=== PATIENT | male | born 1950 | race Caucasian/White ===

== ENCOUNTER 2016-09-04 02:42 | Emergency (ER) | payer MEDICARE, MEDICAID ==
[~2016-09-04] VITALS: Ht 175.3 cm; Wt 105.0 kg
[~2016-09-04 02:42] MED LIST: CARB25TA PO; CHOL1TAB6 PO; DOCU1CAP39 PO; LACT12%T TOP; LUMI0.01; MELA3CAP2 PO; MELO15 PO; METO50TA11 PO; MINO10 PO; MOTR200T PO; OXYC5 PO; PENT400 PO; PRAM0.25 PO; PREG100 PO; PROC60TA PO; REST15CA PO; RIVA20 PO; SIME80CH CHEW; TERA5CAP3 PO; TIZA2TAB PO; TRIA40P IA
[2016-09-04 02:44] VITALS: BP 198/91; PULSE 56; RESP 20; TEMP 98; O2SAT 99
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
[2016-09-04] MEDS ORDERED: MIRA33504 PO (03:13)
[2016-09-04] MEDS ORDERED: OXYC-395 PO (03:13)
[2016-09-04] MEDS ORDERED: COLA100C3 PO ×2 (03:13)
[2016-09-04] MEDS ORDERED: MELA3CAP PO (03:13)
[2016-09-04] MEDS ORDERED: METO50TA11 PO (03:13)
[2016-09-04] MEDS ORDERED: TERA5CAP3 PO (03:13)
[2016-09-04] MEDS ORDERED: POTA10TA8 PO (03:13)
[2016-09-04] MEDS ORDERED: PRAM0.25 PO (03:13)
[2016-09-04] MEDS ORDERED: MYLASUS2 PO (03:13)
[2016-09-04] MEDS ORDERED: NITR1SUB2 SL (03:13)
[2016-09-04] MEDS ORDERED: IBUP-232 PO (03:13)
[2016-09-04] MEDS ORDERED: SIME80CH CHEW (03:13)
[2016-09-04] MEDS ORDERED: REST30CA PO (03:13)
[2016-09-04] MEDS ORDERED: COMB0.2S EACH EYE (03:13)
[2016-09-04] MEDS ORDERED: AMMO12LO TOPICAL (03:13)
[2016-09-04] MEDS ORDERED: LATA0.002 EACH EYE (03:13)
[2016-09-04] MEDS ORDERED: MINO10TA PO (03:13)
[2016-09-04] MEDS ORDERED: VITA100018 PO (03:13)
[2016-09-04] MEDS ORDERED: PENT400T PO (03:13)
[2016-09-04] MEDS ORDERED: TYLE325T PO (03:13)
[2016-09-04] MEDS ORDERED: METO5TAB3 PO (03:13)
[2016-09-04] MEDS ORDERED: LYRI100C PO (03:13)
[2016-09-04] MEDS ORDERED: XARE20TA PO (03:13)
[2016-09-04] MEDS ORDERED: SYSTSOL9 EACH EYE (03:13)
[2016-09-04] MEDS ORDERED: ALDA50TA2 PO (03:13)
[2016-09-04] MEDS ORDERED: FURO40TA PO (03:13)
[2016-09-04] MEDS ORDERED: TIZA2CAP3 PO (03:13)
--- NOTE | 2016-09-04 03:41 | RADRPT ---
EXAM DATE/TIME: 09/04/2016 03:15 [facility] COMPARISON: No previous studies available for comparison. INDICATIONS : Trauma; fall. Laceration over left eyebrow. RADIATION DOSE: 56.35 CTDIvol (mGy) MEDICAL HISTORY : Deep venous thrombosis. Hypertension. PE SURGICAL HISTORY : Inguinal hernia repair. ENCOUNTER: Initial ACUITY: 1 day PAIN SCALE: 4/10 LOCATION: cranial TECHNIQUE: Multiple contiguous axial images were obtained of the head. Using automated exposure control and adj ustment of the mA and/or kV according to patient size, radiation dose was kept as low as reasonably a chievable to obtain optimal diagnostic quality images. FINDINGS: CEREBRUM: The ventricles are normal for age. No evidence of midline shift, mass lesion, hemorrhage or acute in farction. No extra-axial fluid collections are seen. POSTERIOR FOSSA: The cerebellum and brainstem are intact. The 4th ventricle is midline. The cerebellopontine angle i s unremarkable. EXTRACRANIAL: The visualized portion of the orbits is intact. Soft tissue swelling at the left orbital region SKULL: The calvaria is intact. No evidence of skull fracture. CONCLUSION: Minimal soft tissue swelling otherwise unremarkable head CT without contrast Issa Fierro MD on September 04, 2016 at 3:39 Board Certified Radiologist. This report was verified electronically.
[2016-09-04 06:57] VITALS: BP 169/72; PULSE 54; RESP 18; O2SAT 96
== END 2016-09-04 07:00 | disposition home or self-care (01) ==
LOC: NEPC 02:42
DX: S00.03XA Contusion of scalp, initial encounter (principal); W01.0XXA Fall on same level from slipping, tripping and stumbling without subsequent striking against object, initial encounter; Y93.G3 Activity, cooking and baking; Y92.000 Kitchen of unspecified non-institutional (private) residence as the place of occurrence of the external cause; I10 Essential (primary) hypertension
CPT/HCPCS: 70450

== ENCOUNTER 2017-02-26 10:17 | Inpatient (IN) | payer MEDICARE, MEDICAID ==
[2017-02-26] VITALS (7 sets, daily range): BP systolic 156–205; BP diastolic 73–98; PULSE 74–90; RESP 15–20; TEMP 97.9–98.6; O2SAT 96–99
[~2017-02-26] VITALS: Ht 175.3 cm; Wt 89.1 kg
[~2017-02-26 10:17] MED LIST changes: +ALDA50TA2 PO; +AMMO12LO TOPICAL; -CARB25TA PO; -CHOL1TAB6 PO; +COLA100C3 PO; +COMB0.2S EACH EYE; -DOCU1CAP39 PO; +FURO40TA PO; +IBUP-232 PO; -LACT12%T TOP; +LATA0.002 EACH EYE; -LUMI0.01; +LYRI100C PO; +MELA3CAP PO; -MELA3CAP2 PO; -MELO15 PO; +METO5TAB3 PO; -MINO10 PO; +MINO10TA PO; +MIRA33504 PO; -MOTR200T PO; +MYLASUS2 PO; +NITR1SUB2 SL; +OXYC-395 PO; -OXYC5 PO; -PENT400 PO; +PENT400T PO; +POTA10TA8 PO; -PREG100 PO; -PROC60TA PO; -REST15CA PO; +REST30CA PO; -RIVA20 PO; +SYSTSOL9 EACH EYE; +TIZA2CAP3 PO; -TIZA2TAB PO; +TYLE325T PO; +VITA100018 PO; +XARE20TA PO
[2017-02-26] MEDS: SODIUM CHLOR 0.9% 1000 ML INJ 1,000 ML IV SCH ×3 (12:30→20:34)
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
[2017-02-26] MEDS ORDERED: SINE25TA PO (13:13)
--- NOTE | 2017-02-26 13:21 | RADRPT ---
EXAM DATE/TIME: 02/26/2017 12:51 [facility] COMPARISON: No previous studies available for comparison. INDICATIONS : Confusion, slurred speech MEDICAL HISTORY : None. SURGICAL HISTORY : None. ENCOUNTER: Initial ACUITY: 1 day PAIN SCORE: 0/10 LOCATION: Bilateral chest FINDINGS: A single view of the chest demonstrates the lungs to be symmetrically aerated without evidence of mas s, infiltrate or effusion. The cardiomediastinal contours are unremarkable. Osseous structures are intact. CONCLUSION: No acute disease. Ranjit Valero MD FACR on February 26, 2017 at 13:20 Board Certified Radiologist. This report was verified electronically.
[2017-02-26 13:36] LABS: BLOOD, URINE NEG (NEG); GLUCOSE,URINE NEG (NEG); HYALINE CAST, URINE 1 /lpf (RARE); KETONE, URINE NEG (NEG); NITRITE,URINE NEG (NEG); URINE COLOR COLORLESS (YELLW/STRAW)
[2017-02-26 13:37] LABS: COMMENT (UR) CULT NOT INDICATED; CULTURE IF INDICATED CULT NOT INDICATED
[2017-02-26 13:54] LABS: APTT (PATIENT) 27.9 SEC (24.3-30.1); INTERNATIONAL NORMALIZED RATIO 1.1 RATIO
[2017-02-26 13:58] LABS: AUTOMATED NEUTROPHIL # 6.8 TH/MM3 (1.8-7.7); BASOPHIL % 0.3 % (0.0-2.0); EOSINOPHIL # 0.1 TH/MM3 (0-0.4); HEMATOCRIT 38.6 % (39.0-51.0); HEMO FLAGS DIFF FINAL; LYMPH % 12.5 % (9.0-44.0); LYMPHOCYTE # 1.1 TH/MM3 (1.0-4.8); MEAN CELL VOLUME 90.7 FL (80.0-100.0); MEAN CORPUSCULAR HEMOGLOBIN 30.5 PG (27.0-34.0); MEAN CORPUSCULAR HGB CONC 33.7 % (32.0-36.0); MONO % 7.8 % (0.0-8.0); NEUT % 78.4 % (16.0-70.0); PLATELET COUNT 235 TH/MM3 (150-450); RED BLOOD COUNT 4.26 MIL/MM3 (4.50-5.90); RED CELL DISTRIBUTION WIDTH 12.9 % (11.6-17.2); WHITE BLOOD COUNT 8.7 TH/MM3 (4.0-11.0)
--- NOTE | 2017-02-26 13:59 | RADRPT ---
EXAM DATE/TIME: 02/26/2017 13:26 [facility] COMPARISON: CT BRAIN W/O CONTRAST, September 04, 2016, 3:15. INDICATIONS : General weakness RADIATION DOSE: 56.40 CTDIvol (mGy) MEDICAL HISTORY : Cardiovascular disease. Hypertension. SURGICAL HISTORY : None. ENCOUNTER: Initial ACUITY: 1 day PAIN SCALE: 0/10 LOCATION: cranial TECHNIQUE: Multiple contiguous axial images were obtained of the head. Using automated exposure control and adj ustment of the mA and/or kV according to patient size, radiation dose was kept as low as reasonably a chievable to obtain optimal diagnostic quality images. DICOM format image data is available electro nically for review and comparison. FINDINGS: CEREBRUM: Mild diffuse cerebral atrophy. The ventricles are normal for age. No evidence of midline shift, mass lesion, hemorrhage or acute infarction. No extra-axial fluid collections are seen. POSTERIOR FOSSA: The cerebellum and brainstem are intact. The 4th ventricle is midline. The cerebellopontine angle i s unremarkable. EXTRACRANIAL: The visualized portion of the orbits is intact. SKULL: The calvaria is intact. No evidence of skull fracture. CONCLUSION: 1. No acute intracranial abnormality. Ayush Zamora MD on February 26, 2017 at 13:55 Board Certified Radiologist. This report was verified electronically.
[2017-02-26 14:00] LABS: ALT (GPT) 12 U/L (12-78); ANION GAP 7 MEQ/L (5-15); AST (GOT) 19 U/L (15-37); BICARBONATE 29.5 MEQ/L (21.0-32.0); BLOOD UREA NITROGEN 18 MG/DL (7-18); CHLORIDE 108 MEQ/L (98-107); GLOMERULAR FILTRATION RATE 62 ML/MIN (>89); SODIUM (NA) 144 MEQ/L (136-145)
[2017-02-26 14:09] LABS: ALKALINE PHOSPHATASE 64 U/L (45-117); TOTAL BILIRUBIN ADULT 0.8 MG/DL (0.2-1.0)
[2017-02-26] MEDS ORDERED: MORPHINE SULFATE 2 MG/ML INJ IV PUSH ONE (14:15)
[2017-02-26] MEDS ORDERED: ONDANSETRON HCL 4 MG/2 ML VIAL IV PUSH ONE (14:15)
[2017-02-26] MEDS ORDERED: SODIUM CHLORIDE 0.9% FLUSH 10 ML FLUSH IV FLUSH PRN (14:45)
--- NOTE | 2017-02-26 14:54 | HHI.HP ---
[facility] Service Family Medicine Primary Care Physician Juan Antonio Kenney MD Admission Diagnosis acute CVA Diagnoses: International Travel<30 Days: No Contact w/Intl Traveler<30days: No Known Affected Area: No History of Present Illness 66 year old male with a past history of Parkinsons, HTN, PE, CHF who presented to the ED due to right sided weakness. He states he woke up at 4:00 AM this morning and realized he had difficulty moving his right arm and leg. Reports he alerted the staff at his longterm, who advised him to go back to bed. He woke up again at 8:00 AM, and noted a significant headache that felt like a "spike in my head" which lasted for 20 seconds. He has not experienced any headaches since then. He called and spoke with his doctor who stated he believed that the patient had slurred speech at the time and advised to go to the hospital. He believes he may have some blurred vision since this morning. Reports some nausea, no vomiting, fever, chills. Minor neck stiffness. He states he continued have persistent right arm and right leg weakness, similar to an episode he had 3 or 4 years ago which is the reason he is currently in a longterm. He does not believe that was a stroke at the time. States he has good sensation in both arms and legs. He states that at baseline he is typically ambulatory, works out at the gym often. Denies chest pain, shortness of breath, abdominal pain. Notes some pain in his back she states is similar to that time he had a pulmonary embolism years ago. Does not currently compare of calf pain, states he has been ambulatory recently, denies hemoptysis, no recent known malignancy. Review of Systems Constitutional: DENIES: Fatigue, Fever, Chills, Dizziness Endocrine: DENIES: Polydipsia, Polyuria Eyes: COMPLAINS OF: Blurred vision, DENIES: Diplopia, Eye inflammation, Eye pain, Vision loss, Photosensitivity, Double Vision Ears, nose, mouth, throat: COMPLAINS OF: Tinnitus, DENIES: Hearing loss, Vertigo, Throat pain, Ear Pain, Running Nose, Epistaxis, Sinus Pain Respiratory: DENIES: Apneas, Cough, Wheezing, Hemoptysis, Sputum production, Shortness of breath Cardiovascular: DENIES: Chest pain, Palpitations, Syncope, Lower Extremity Edema, Orthopnea Gastrointestinal: COMPLAINS OF: Nausea, DENIES: Abdominal pain, Black stools, Bloody stools, Constipation, Diarrhea, Vomiting, Difficulty Swallowing Genitourinary: COMPLAINS OF: Nocturia, DENIES: Urgency, Hematuria, Dysuria Musculoskeletal: COMPLAINS OF: Back pain, Neck pain, DENIES: Joint pain, Muscle aches, Stiffness, Joint Swelling Integumentary: DENIES: Abnormal pigmentation, Pruritus Hematologic/lymphatic: DENIES: Bruising, Lymphadenopathy Immunologic/allergic: DENIES: Eczema, Urticaria Neurologic: COMPLAINS OF: Abnormal gait, Headache (once at 8AM), Localized weakness, Speech Problems, Tremor (Baseline), Poor Balance, DENIES: Paresthesias , Seizures Psychiatric: COMPLAINS OF: Confusion (Needs to think for a couple seconds before he speaks), DENIES: Anxiety, Mood changes, Depression, Hallucinations Past Family Social History Past Medical History Parkinsons Chronic back pain HTN PE CHF Past Surgical History B/L inguinal hernia repair Shoulder replacement Right side Laceration repair right hand Allergies: Coded Allergies: gabapentin (Unverified Allergy, Severe, TACHYCARDIA, 01/02/17) Family History Father passed at 42 from stroke Mother: angina, HTN, passed at 83 Brother: unknown health status 4 Children: no health issues Social History Etoh: on occasion Tobacco: pat history of 3-4 years of smoking 3 cigarrettes to 3 packs day Drugs: smoked marijuana, speed once in the past, acid a few times, None now Live in a longterm, [facility]. Physical Exam Vital Signs Vital Signs Date Time Temp Pulse Resp B/P (MAP) Pulse Ox O2 Delivery O2 Flow Rate FiO2 02/26/17 13:13 78 18 165/73 (103) 98 Room Air 02/26/17 13:04 74 18 189/88 (121) 98 Room Air 02/26/17 13:04 77 18 99 Room Air 02/26/17 13:03 18 98 Room Air 02/26/17 13:03 99 Room Air 02/26/17 12:21 97.9 90 15 156/85 (108) 99 Room Air Physical Exam GENERAL: This is a well-nourished, well-developed patient, in no apparent distress. SKIN: No rashes, ecchymoses or lesions. Cool and dry. HEAD: Atraumatic. Normocephalic. No temporal or scalp tenderness. EYES: Pupils equal round and reactive. Extraocular motions intact. No scleral icterus. No injection or drainage. Visual [place] intact. ENT: Nose without bleeding, purulent drainage or septal hematoma. Throat without erythema, tonsillar hypertrophy or exudate. Uvula midline. Airway patent. NECK: Trachea midline. No JVD or lymphadenopathy. Supple, nontender, no meningeal signs. Full range of motion. CARDIOVASCULAR: Regular rate and rhythm without murmurs, gallops, or rubs. RESPIRATORY: Clear to auscultation. Breath sounds equal bilaterally. No wheezes , rales, or rhonchi. GASTROINTESTINAL: Abdomen soft, non-tender, nondistended. No hepato-splenomegaly , or palpable masses. No guarding. MUSCULOSKELETAL: Extremities without clubbing, cyanosis, or edema. No joint tenderness, effusion, or edema noted. No calf tenderness. Negative Kernig, Brudzinski sign. NEUROLOGICAL: Awake and alert. Cranial nerves II through XII intact. Motor and sensory grossly within normal limits bilaterally in arms and legs. Five out of 5 muscle strength on left side, 4/5 in right arm and leg. Normal speech (self reported slurred). Laboratory Laboratory Tests Test 02/26/17 12:52 White Blood Count 8.7 Red Blood Count 4.26 Hemoglobin 13.0 Hematocrit 38.6 Mean Corpuscular Volume 90.7 Mean Corpuscular Hemoglobin 30.5 Mean Corpuscular Hemoglobin Concent 33.7 Red Cell Distribution Width 12.9 Platelet Count 235 Mean Platelet Volume 8.4 Neutrophils (%) (Auto) 78.4 Lymphocytes (%) (Auto) 12.5 Monocytes (%) (Auto) 7.8 Eosinophils (%) (Auto) 1.0 Basophils (%) (Auto) 0.3 Neutrophils # (Auto) 6.8 Lymphocytes # (Auto) 1.1 Monocytes # (Auto) 0.7 Eosinophils # (Auto) 0.1 Basophils # (Auto) 0.0 CBC Comment DIFF FINAL Differential Comment Prothrombin Time 12.0 Prothromb Time International Ratio 1.1 Activated Partial Thromboplast Time 27.9 Urine Color COLORLESS Urine Turbidity CLEAR Urine pH 7.0 Urine Specific Declo 1.008 Urine Protein NEG Urine Glucose (UA) NEG Urine Ketones NEG Urine Occult Blood NEG Urine Nitrite NEG Urine Bilirubin NEG Urine Urobilinogen LESS THAN 2.0 Urine Leukocyte Esterase NEG Urine Hyaline Casts 1 Microscopic Urinalysis Comment CULT NOT INDICATED Blood Urea Nitrogen 18 Creatinine 1.18 Random Glucose 92 Total Protein 7.0 Albumin 3.7 Calcium Level 9.0 Alkaline Phosphatase 64 Aspartate Amino Transf (AST/SGOT) 19 Alanine Aminotransferase (ALT/SGPT) 12 Total Bilirubin 0.8 Sodium Level 144 Potassium Level 4.0 Chloride Level 108 Carbon Dioxide Level 29.5 Anion Gap 7 Estimat Glomerular Filtration Rate 62 B-Type Natriuretic Peptide 109 Thyroid Stimulating Hormone 3rd Gen 0.522 Result Diagram: 02/26/17 1252 02/26/17 1252 Imaging Last 48 hours Impressions Neck Magnetic Resonance Angiography 02/26/171409 Signed Impressions: Service Date/Time: Sunday, February 26, 2017 16:02 - CONCLUSION: 1. Unremarkable carotid MRA examination. No significant flow-limiting stenosis. Ayush Zamora MD Head Magnetic Resonance Angiography 02/26/171409 Signed Impressions: Service Date/Time: Sunday, February 26, 2017 16:02 - CONCLUSION: 1. Unremarkable MRA examination of the brain. Specifically, no evidence for large vessel occlusion or significant intracranial stenosis. Ayush Zamora MD Brain MRI [id number]/[id number] Signed Impressions: Service Date/Time: Sunday, February 26, 2017 16:02 - CONCLUSION: 1. Unremarkable MRI examination the brain. Specifically, no evidence of acute ischemia. Ayush Zamora MD Head CT [id number]/26/[id number] Signed Impressions: Service Date/Time: Sunday, February 26, 2017 13:26 - CONCLUSION: 1. No acute intracranial abnormality. Ayush Zamora MD Chest X-Ray 02/26/171221 Signed Impressions: Service Date/Time: Sunday, February 26, 2017 12:51 - CONCLUSION: No acute disease. Ranjit Valero MD FACR Caprini VTE Risk Assessment Caprini VTE Risk Assessment: Mod/High Risk (score >= 2) Caprini Risk Assessment Model Point Value = 1 Point Value = 2 Point Value = 3 Point Value = 5 Age 41-60 Minor surgery BMI > 25 kg/m2 Swollen legs Varicose veins or History of unexplained or recurrent spontaneous Oral contraceptives or hormone replacement Sepsis (< 1 month) Serious lung disease, including pneumonia (< 1 month) Abnormal pulmonary function Acute myocardial infarction Congestive heart failure (< 1 month) History of inflammatory bowel disease Medical patient at bed rest Age 61-74 Arthroscopic surgery Major open surgery (> 45 min) Laparoscopic surgery (> 45 min) Malignancy Confined to bed (> 72 hours) Immobilizing plaster cast Central venous access Age >= 75 History of VTE Family history of VTE Factor V Leiden Prothrombin [id number] Lupus anticoagulant Anticardiolipin antibodies Elevated serum homocysteine Heparin-induced thrombocytopenia Other congenital or acquired thrombophilia Stroke (< 1 month) Elective arthroplasty Hip, pelvis, or leg fracture Acute spinal cord injury (< 1 month) Prophylaxis Regimen Total Risk Factor Score Risk Level Prophylaxis Regimen 0-1 Low Early ambulation 2 Moderate Order ONE of the following: *Sequential Compression Device (SCD) *Heparin 5000 units SQ BID 3-4 Higher Order ONE of the following medications: *Heparin 5000 units SQ TID *Enoxaparin/Lovenox 40 mg SQ daily (WT < 150 kg, CrCl > 30 mL/min) *Enoxaparin/Lovenox 30 mg SQ daily (WT < 150 kg, CrCl > 10-29 mL/min) *Enoxaparin/Lovenox 30 mg SQ BID (WT < 150 kg, CrCl > 30 mL/min) AND/OR *Sequential Compression Device (SCD) 5 or more Highest Order ONE of the following medications: *Heparin 5000 units SQ TID (Preferred with Epidurals) *Enoxaparin/Lovenox 40 mg SQ daily (WT < 150 kg, CrCl > 30 mL/min) *Enoxaparin/Lovenox 30 mg SQ daily (WT < 150 kg, CrCl > 10-29 mL/min) *Enoxaparin/Lovenox 30 mg SQ BID (WT < 150 kg, CrCl > 30 mL/min) AND *Sequential Compression Device (SCD) Assessment and Plan Assessment and Plan 66 year old male with a past history of Parkinsons, HTN, PE, CHF who presented to the ED due to right sided weakness. Currently demonstrating right-sided hemiplegia. Past history of right-sided hemiplegia, reported to have had an episode similar to this a few years ago. Also complains of a back pain which is "similar to when I had a PE." Wells criteria for 4.5. Perc score 2. Problem List: (1) Hemiplegia ICD Codes: G81.90 - Hemiplegia, unspecified affecting unspecified side Plan: Patient presented with right-sided cassi-plegia. No other focal neurological deficits noted. CT head without acute process, head MRA unremarkable, brain MRI unremarkable, neck MRA unremarkable. * Neuro checks every 4 * Head of bed flat * Nothing by mouth until swallow study * Follow-up neurology recognitions * Telemetry * ACS rule out * Follow up troponins * Follow-up echo (2) Back pain ICD Codes: M54.9 - Dorsalgia, unspecified Plan: Patient complains of back pain which he reports is similar to when he had a pulmonary embolism past. Well's score 4.5, Perc score 2 * Currently on Xarelto * No signs or symptoms of DVT at this time * Follow up pulmonary CT angiogram (3) Hypertension ICD Codes: I10 - Hypertension Status: Acute Plan: Chronic hypertension. * Home medications held for now to allow for permissive hypertension (4) Parkinson disease ICD Codes: G20 - Parkinson's disease Plan: History of Parkinson's * Continue carbidopa levodopa 25/100 mg every 8 hours- home medication (5) FEN Plan: Fluids * Maintenance fluids at 140 mL per hour Electrolytes * Monitor and correct as needed Nutrition * Nothing by mouth, require swallow study Prophylaxis * Currently on Xarelto, SCDs * Zofran as needed Physician Certification 2 Midnight Certification Type: Admission for Inpatient Services Order for Inpatient Services The services are ordered in accordance with Medicare regulations or non- Medicare payer requirements, as applicable. In the case of services not specified as inpatient-only, they are appropriately provided as inpatient services in accordance with the 2-midnight benchmark. Estimated LOS (days): 2 2 days is the estimated time the patient will need to remain in the hospital, assuming treatment plan goals are met and no additional complications. Post-Hospital Plan: Not yet determined Austen Wilson MD R1 Feb 26, 2017 14:54
[2017-02-26] MEDS ORDERED: ACETAMINOPHEN 325 MG TAB PO PRN ×2 (15:45)
[2017-02-26] MEDS ORDERED: ENALAPRILAT 1.25 MG/ML VIAL IV PUSH PRN (15:45)
[2017-02-26] MEDS ORDERED: LACTULOSE SYRUP 20 GM/30 ML CUP PO PRN (15:45)
[2017-02-26] MEDS ORDERED: SENNOSIDES 8.6 MG TAB PO PRN (15:45)
[2017-02-26] MEDS ORDERED: ONDANSETRON HCL 4 MG/2 ML VIAL IVP PRN (15:45)
[2017-02-26] MEDS ORDERED: MAGNESIUM HYDROXIDE SUSP 30 ML CUP PO PRN (15:45)
[2017-02-26] MEDS ORDERED: BISACODYL 10 MG SUPP RECTAL PRN (15:45)
[2017-02-26] MEDS ORDERED: MORPHINE SULFATE 4 MG/ML INJ IV PUSH PRN (15:45)
--- NOTE | 2017-02-26 15:59 | EKG ---
Date Performed: 02/26/2017 Time Performed: 12:42:40 PTAGE: 66 years EKG: Sinus rhythm WITH FREQUENT VENTRICULAR PREMATURE COMPLEXES POSSIBLE LEFT ATRIAL ENLARGEMENT LEFT ANTERIOR FASCICU LAR BLOCK Compared to prior tracing no significant change ABNORMAL ECG PREVIOUS TRACING : 10/26/2015 11.06 DOCTOR: Juan Antonio Rose Interpretating Date/Time 02/26/2017 15:57:59
[2017-02-26] MEDS ORDERED: SODIUM CHLOR 0.9% 1000 ML INJ 1,000 ML IV SCH (16:00)
--- NOTE | 2017-02-26 16:43 | RADRPT ---
EXAM DATE/TIME: 02/26/2017 16:02 [facility] COMPARISON: MRI BRAIN W/O CONTRAST, February 26, 2017, 16:02. INDICATIONS : CVA. MEDICAL HISTORY : Hypertension. Arthritis. DDD. Glaucoma. SURGICAL HISTORY : Inguinal hernia repair. Cataracts. Right shoulder. ENCOUNTER: Subsequent ACUITY: 1 day PAIN SCORE: 3/10 LOCATION: cranial Please note a normal MRA of the brain does not entirely exclude the possibility of a small aneurysm, nor the possibility of distal intracranial vessel disease. TECHNIQUE: 3D time of flight MRA was performed. Source images, multiplanar STS MIP, and 3D volume MIP reconstru ctions were reviewed. FINDINGS: Anterior circulation: Distal intracranial internal carotid arteries are patent with flow extending to the middle and anteri or cerebral arteries. There is no evidence for aneurysm, vessel truncation or stenosis, and no eviden ce for vascular malformation. Posterior circulation: Symmetric distal vertebral arteries with flow extending to basilar artery. There is no evidence for aneurysm, vessel truncation or stenosis, and no evidence for vascular malformation. CONCLUSION: 1. Unremarkable MRA examination of the brain. Specifically, no evidence for large vessel occlusion or significant intracranial stenosis. Ayush Zamora MD on February 26, 2017 at 16:39 Board Certified Radiologist. This report was verified electronically.
--- NOTE | 2017-02-26 16:46 | RADRPT ---
EXAM DATE/TIME: 02/26/2017 16:02 [facility] COMPARISON: No previous studies available for comparison. INDICATIONS : CVA. MEDICAL HISTORY : Hypertension. Arthritis. Right shoulder. DDD. SURGICAL HISTORY : Inguinal hernia repair. DDD. Glaucoma. ENCOUNTER: Subsequent ACUITY: 1 day PAIN SCORE: 3/10 LOCATION: cranial TECHNIQUE: Multiplanar, multisequence MRI of the brain was performed without contrast. FINDINGS: CEREBRUM: The ventricles are normal for age. No evidence of midline shift, mass lesion, hemorrhage or acute in farction. No extraaxial fluid collections are seen. The pituitary gland and suprasellar cistern are normal in configuration. WHITE MATTER: No significant signal abnormalities are seen in the white matter. POSTERIOR FOSSA: The cerebellum and brainstem are intact. The 4th ventricle is midline. The cerebellopontine angle is unremarkable. The cerebellar tonsils are normal in position. DIFFUSION IMAGING: No focal areas of restricted diffusion are seen. No evidence of acute infarction. EXTRACRANIAL: The visualized portions of the orbits and paranasal sinuses are unremarkable. CONCLUSION: 1. Unremarkable MRI examination the brain. Specifically, no evidence of acute ischemia. Aysuh Zamora MD on February 26, 2017 at 16:44 Board Certified Radiologist. This report was verified electronically.
[2017-02-26] MEDS ORDERED: GADODIAMIDE PF 287 MG/ML 20 ML VIAL (for RAD MRI) IV PUSH ONE (17:04)
--- NOTE | 2017-02-26 17:23 | RADRPT ---
EXAM DATE/TIME: 02/26/2017 16:02 [facility] COMPARISON: No previous studies available for comparison. INDICATIONS : Stroke. CONTRAST: 20 cc Omniscan (gadodiamide) IV MEDICAL HISTORY : Hypertension. Arthritis. DDD. Glaucoma. SURGICAL HISTORY : Inguinal hernia repair. Cataracts. Right shoulder. ENCOUNTER: Subsequent ACUITY: 1 day PAIN SCORE: 3/10 LOCATION: cranial Percent stenosis is calculated using the diameter of the stenotic region over the diameter of the nor mal distal internal carotid artery. TECHNIQUE: Bolus infused MRA of the extracranial circulation was performed using a neurovascular coil. Post pro cessing was performed including rotating subvolume maximum intensity projections of each carotid tru ry, rotating full volume maximum intensity projections of both carotid arteries, sagittal and coronal sliding thin slab reformations of each carotid artery, and left oblique sliding thin slab reformatio n through the aortic arch to include the origin of the arch branch vessels. FINDINGS: AORTIC ARCH: There is a three vessel origin of the great vessels from the aorta. No evidence of ostial narrowing. RIGHT CAROTID: The common carotid artery is intact. The carotid bulb has a normal configuration without ulceration or narrowing. The internal carotid artery lumen is smooth without stenosis. The external carotid ar aram is intact. LEFT CAROTID: The common carotid artery is intact. The carotid bulb has a normal configuration without ulceration or narrowing. The internal carotid artery lumen is smooth without stenosis. The external carotid ar aram is intact. VERTEBRALS: The vertebral arteries have a symmetric diameter. No stenotic lesions are seen. CONCLUSION: 1. Unremarkable carotid MRA examination. No significant flow-limiting stenosis. Ayush Zamora MD on February 26, 2017 at 17:19 Board Certified Radiologist. This report was verified electronically.
[2017-02-26] MEDS: ACETAMINOPHEN/HYDROcodone 325 MG/10 MG TAB PO PRN ×2 (18:33→22:49)
[2017-02-26] MEDS: PRAMIPEXOLE DIHYDROCHLORIDE 0.25 MG TAB PO SCH (18:33)
[2017-02-26] MEDS ORDERED: GLUCAGON 1 MG/ML VIAL OTHER PRN (19:00)
[2017-02-26] MEDS ORDERED: SODIUM CHLORIDE 0.9% FLUSH 5 ML FLUSH IV FLUSH PRN (19:00)
[2017-02-26] MEDS ORDERED: DEXTROSE 50% IN WATER 50 ML VIAL(D50) IV PUSH PRN (19:00)
--- NOTE | 2017-02-26 19:23 | RADRPT ---
EXAM DATE/TIME: 02/26/2017 18:48 [facility] COMPARISON: US CAROTID ARTERIES, December 07, 2010, 8:49. INDICATIONS : Cerebrovascular accident. MEDICAL HISTORY : Parkinson's. Congestive heart failure. Hypertension. Tinnitus. Neck pain. Head trauma. Dizziness. Hea dache. Numbness. Pleural effusion. Chest pain. Gastroesophageal reflux disease. Nocturia. Arthritis. SURGICAL HISTORY : Cataract extraction. Teeth extractions. Inguinal hernia repair. Right shoulder replacement. ENCOUNTER: Initial ACUITY: 1 day PAIN SCORE: 0/10 LOCATION: Bilateral neck PEAK SYSTOLIC VELOCITIES (cm/sec): ICA/CCA RATIO: Right: 1.0 Left: 0.8 ICA: Right: 94 Left: 94 CCA: Right: 92 Left: 116 ECA: Right: 100 Left: 91 VERTEBRAL: Right: 51 antegrade Left: 49 antegrade Elevated flow velocities and ICA/CCA ratios have been found to correlate with increased degrees of vessel stenosis, calculated as percentage of diameter relative to a normal segment of distal ICA/CCA FINDINGS: Ultrasound of the carotid arteries was performed bilaterally using real-time Doppler and color Dopple r imaging. Examination of the right carotid artery demonstrates mild fibrous plaque within the bifurcation. No w aveform abnormalities are identified and no spectral broadening is seen. Examination of the left casillas tid artery demonstrates mild fibrous plaque within the bulb. No waveform abnormalities are identified and no spectral broadening is seen. There is antegrade flow in both vertebral arteries. CONCLUSION: No evidence of hemodynamically significant lesion. Juan Antonio Watson MD on February 26, 2017 at 19:21 Board Certified Radiologist. This report was verified electronically.
[2017-02-26] MEDS ORDERED: IOHEXOL 350 MG/ML 10 ML VIAL (for RAD DIAG) IVCONTRAST ONE (20:07)
--- NOTE | 2017-02-26 20:24 | RADRPT ---
EXAM DATE/TIME: 02/26/2017 19:45 [facility] COMPARISON: CT PULMONARY ANGIOGRAM, April 22, 2013, 9:38. INDICATIONS : Generalize weakness,episode of chest tightness IV CONTRAST: 74 cc Omnipaque 350 (iohexol) IV RADIATION DOSE: 23.36 CTDIvol (mGy) MEDICAL HISTORY : Cardiovascular disease. Hypertension. SURGICAL HISTORY : None. ENCOUNTER: Initial ACUITY: 1 day PAIN SCALE: 0/10 LOCATION: chest TECHNIQUE: Volumetric scanning of the chest was performed using a pulmonary embolism protocol MIP images were re constructed. Using automated exposure control and adjustment of the mA and/or kV according to patien t size, radiation dose was kept as low as reasonably achievable to obtain optimal diagnostic quality images. DICOM format image data is available electronically for review and comparison. Follow-up recommendations for detected pulmonary nodules are based at a minimum on nodule size and pa tient risk factors according to Fleischner Society Guidelines. FINDINGS: Examination of the pulmonary vasculature demonstrates good filling of the main, lobar and segmental b ranches. There are no filling defects to suggest pulmonary embolism. Multiplanar reconstructions are also unremarkable. There is subsegmental atelectasis in the both bases. There is a 19 x 15 mm nodule in the right lower lobe. Malignancy is not excluded. PET/CT scan is recommended to further evaluatio n if clinically indicated. Examination of the mediastinum demonstrates no abnormally enlarged lymph nodes by CT criteria. No axi llary or hilar abnormalities are identified. Coronary artery calcifications are present. The visualiz ed upper abdomen demonstrates no abnormality. CONCLUSION: 1. No evidence of pulmonary embolism. 2. 19 mm right lower lobe nodule. Malignancy is not excluded. PET/CT scan is recommended to further e valuation if clinically indicated. Juan Antonio Watson MD on February 26, 2017 at 20:07 Board Certified Radiologist. This report was verified electronically.
[2017-02-26] MEDS: DOCUSATE SODIUM 50 MG/SENNA 8.6 MG TAB PO SCH (20:33)
[2017-02-26] MEDS: SODIUM CHLORIDE 0.9% FLUSH 5 ML FLUSH IV FLUSH SCH (20:33)
[2017-02-26] MEDS: PREGABALIN 100 MG CAP PO SCH (20:33)
[2017-02-26] MEDS: INSULIN ASPART SUPPLEMENTAL SCALE SQ SCH (20:35)
[2017-02-26] MEDS: LATANOPROST 0.005% OPHT SOLN 2.5 ML BTL EACH EYE SCH (20:40)
[2017-02-26] MEDS: BRIMONIDINE TARTRATE 0.2% OPHT SOLN 5 ML BTL EACH EYE SCH (20:40)
[2017-02-26] MEDS: ASPIRIN EC 81 MG TABEC PO SCH (20:40)
[2017-02-26] MEDS: TIMOLOL MALEATE 0.5% OPHT SOLN 5 ML BTL EACH EYE SCH (20:40)
[2017-02-26] MEDS ORDERED: NON-FORMULARY DRUG (Brimonidine-Timolol Opth Drops (Combigan Opth Drops) 1 DROP) EACH EYE SCH (21:00)
[2017-02-26] MEDS ORDERED: SODIUM CHLORIDE 0.9% FLUSH 10 ML FLUSH IV FLUSH SCH (21:00)
--- NOTE | 2017-02-26 22:11 | MB ---
cc: SHAVON ANAYA M.D. DATE OF CONSULTATION: 02/26/2017 REASON FOR CONSULTATION: Stroke. HISTORY OF PRESENT ILLNESS Mr. Jeffers is a 66-year-old man who has a history of atrial fibrillation for which he takes Xarelto who states he woke up this morning and noted he was weak in his right arm and right leg. He has a brief headache as well this morning which resolved. No history of any speech change. PAST MEDICAL HISTORY: 1. Atrial fibrillation. 2. Congestive heart failure. 3. Hypertension. 4. History of Parkinson's disease. 5. GERD. 6. BPH. 7. DVT. 8. Osteoarthritis. MEDICATIONS PRIOR TO ADMISSION: 1. Sinemet 25/100 t.i.d. 2. Xarelto 20 milligrams daily. 3. Trental 400 milligrams t.i.d. 4. Metoprolol ER 50 milligrams daily. 5. Tizanidine 1 milligram t.i.d. 6. Terazosin 5 milligrams hs. 7. Pramipexole 0.25 mg t.i.d. 8. Oxycodone as needed for pain. 9. Minoxidil. 10. Lyrica 100 milligrams b.i.d. 11. Latanoprost ophthalmic. 12. Ibuprofen. 13. Lasix. 14. Combigan ophthalmic drops. 15. Vitamin D3. 16. Aldactone. SOCIAL HISTORY: Denies recent alcohol use, tobacco use. ALLERGIES: GABAPENTIN NEUROLOGICAL EXAMINATION: Blood pressure is 205/96, pulse 82, respirations are 20, temperature 98.4 degrees. Higher cortical functions are normal. Cranial nerves: He has a mild right upper motor neuron VII palsy. The pupils equal, reactive. The extraocular movements intact. On motor exam, he is weak in the right arm and right leg at 4-/5 strength with normal strength, left reflexes are 2+ symmetric, both upper and lower extremities. IMAGING STUDIES: CT scan of the brain reveals no acute abnormality. MRI of the brain is within normal limits with no evidence of acute ischemia. MRA of the brain is within normal limits with no evidence of large vessel occlusion. Neck MRA is within normal limits with no evidence of any significant carotid artery stenosis. Chest x-ray normal: LABORATORY DATA: White count is 8,700, hemoglobin 13, hematocrit 38.6%, platelet count is 235,000. PT 12, INR 1.18, PTT 27.9. Sodium is 144, potassium 4.0, chloride 108, CO2 29.5, BUN 18, creatinine 1.18, GFR 63, glucose 92. AST 19, ALT 12. Troponin 0.02. EKG: Sinus rhythm possible left atrial enlargement, left anterior fascicular block. IMPRESSION: Left hemisphere stroke, probably cardioembolic from A-fib. RECOMMENDATIONS: Continue the Xarelto. Will add low dose aspirin, 81 milligrams. Will check an echocardiogram as well as a lipid panel. Would recommend keeping the patient head of bed flat for the next 12 hours. Will allow permissive hypertension. However, since he is on anticoagulation, would treat systolic pressure over 180. MD YSABEL Stringer/MIESHA /6:43 PM /9:34 PM
[2017-02-26 22:19] LABS: HEMOGLOBIN A1b 1.7 %; HEMOGLOBIN Ao 85.4 %; HEMOGLOBIN LA1C 1.9 %; HEMOGLOBIN P3 3.9 %
[2017-02-26] MEDS: CARBIDOPA/LEVODOPA 25 MG/100 MG TAB PO SCH (22:49)
[2017-02-27] VITALS (9 sets, daily range): BP systolic 117–194; BP diastolic 57–99; PULSE 63–76; RESP 16–19; TEMP 97–99; O2SAT 94–97
[2017-02-27] MEDS ORDERED: ENALAPRILAT 1.25 MG/ML VIAL IV PUSH PRN
[2017-02-27 04:28] LABS: HEMATOCRIT 34.1 % (39.0-51.0); MEAN CELL VOLUME 89.4 FL (80.0-100.0); MEAN CORPUSCULAR HEMOGLOBIN 30.7 PG (27.0-34.0); MEAN CORPUSCULAR HGB CONC 34.3 % (32.0-36.0); PLATELET COUNT 216 TH/MM3 (150-450); RED BLOOD COUNT 3.81 MIL/MM3 (4.50-5.90); RED CELL DISTRIBUTION WIDTH 12.8 % (11.6-17.2); REVIEW FLAG FINAL
[2017-02-27 04:29] LABS: INTERNATIONAL NORMALIZED RATIO 1.1 RATIO; PROTHROMBIN TIME - PATIENT 12.3 SEC (9.8-11.6)
[2017-02-27] MEDS: ENALAPRILAT 1.25 MG/ML VIAL IV PUSH PRN ×2 (04:40→09:52)
[2017-02-27 04:52] LABS: BICARBONATE 27.5 MEQ/L (21.0-32.0); HDL CHOLESTEROL 48.6 MG/DL (40.0-60.0); POTASSIUM 3.5 MEQ/L (3.5-5.1)
[2017-02-27] MEDS: CARBIDOPA/LEVODOPA 25 MG/100 MG TAB PO SCH ×3 (06:05→21:55)
[2017-02-27] MEDS: oxyCODONE/ACETAMINOPHEN 5 MG/325 MG TAB PO PRN (06:11)
[2017-02-27] MEDS: INSULIN ASPART SUPPLEMENTAL SCALE SQ SCH ×4 (08:00→21:00)
[2017-02-27] MEDS: SODIUM CHLORIDE 0.9% FLUSH 5 ML FLUSH IV FLUSH SCH ×2 (09:00→21:00)
--- NOTE | 2017-02-27 09:04 | HHI.FPPN ---
Subjective Remarks Pt seen and examined this morning. No acute events overnight. Pt reports that the has been needing to use a walker, he is normally able to ambulate with out assistance. He endorses a headache last night and this morning in the front of his head, will last less than 15 seconds, sharp. He reports that blurry vision is improving. He continues to have ringing in his left ear, stable. Back pain has resolved. His speech is normal today. He had abdominal pain overnight, this has resolved. (Doron Rose MD R3) Objective Vitals Vital Signs Date Time Temp Pulse Resp B/P (MAP) Pulse Ox O2 Delivery O2 Flow Rate FiO2 02/27/17 08:29 98.5 72 16 194/93 (126) 94 02/27/17 04:00 97.7 66 18 189/99 (129) 94 02/27/17 00:00 98.2 70 18 152/68 (96) 96 02/26/17 20:00 98.6 75 18 176/82 (113) 96 02/26/17 17:45 98.5 82 20 205/96 (132) 97 02/26/17 15:45 80 18 182/98 (126) 98 Room Air 02/26/17 13:13 78 18 165/73 (103) 98 Room Air 02/26/17 13:04 74 18 189/88 (121) 98 Room Air 02/26/17 13:04 77 18 99 Room Air 02/26/17 13:03 18 98 Room Air 02/26/17 13:03 99 Room Air 02/26/17 12:21 97.9 90 15 156/85 (108) 99 Room Air I/O 02/26/17 02/26/17 02/26/17 02/27/17 02/27/17 02/27/17 07:00 15:00 23:00 07:00 15:00 23:00 Output Total 700 ml Balance -700 ml Output Urine Total 700 ml (Doron Rose MD R3) Result Diagram: 02/27/1740402/27/17404 Objective Remarks GENERAL: This is a well-nourished, well-developed patient, in no apparent distress. SKIN: No rashes, ecchymoses or lesions. Cool and dry. HEAD: Atraumatic. Normocephalic. EYES: Extraocular motions intact. No scleral icterus. No injection or drainage. Visual [place] intact. ENT: Nose without bleeding, purulent drainage or septal hematoma. Uvula midline. Airway patent. NECK: Trachea midline. No JVD or lymphadenopathy. CARDIOVASCULAR: Regular rate and rhythm without murmurs, gallops, or rubs. RESPIRATORY: Clear to auscultation. Breath sounds equal bilaterally. No wheezes , rales, or rhonchi. GASTROINTESTINAL: Abdomen soft, non-tender, nondistended. No guarding. MUSCULOSKELETAL: Extremities without clubbing, cyanosis, or edema. NEUROLOGICAL: Awake and alert. Cranial nerves II through XII intact. Sensory grossly within normal limits bilaterally in arms and legs. Five out of 5 muscle strength on left side, 4/5 in right arm and leg. Normal speech. (Doron Rose MD R3) A/P Assessment and Plan 66 year old male with a past history of Parkinsons, HTN, PE, CHF who presented to the ED due to right sided weakness. Currently demonstrating right-sided hemiplegia. Past history of right-sided hemiplegia, reported to have had an episode similar to this a few years ago. Also complains of a back pain which is "similar to when I had a PE." Wells criteria for 4.5. Perc score 2. Discharge Planning Anticipate discharge once patient is medically stable and has been cleared by neurology, pending results of CVA work up. (Doron Rose MD R3) Attending Attestation Table rounds about patients admission were held with Dr Elvira Rose,Dr Juliana Rose ,Dr Del Rio and Dr Wilson, patient was interviewed and examined,agree with contents of note, see orders. (Christian Franklin MD) Problem List: (1) Hemiplegia ICD Codes: G81.90 - Hemiplegia, unspecified affecting unspecified side Status: Acute Plan: Patient presented with right-sided cassi-plegia. No other focal neurological deficits noted. CT head without acute process, head MRA unremarkable, brain MRI unremarkable, neck MRA unremarkable. * Neurology consulted, appreciate recommendations * Neuro checks every 4 * Telemetry * ACS ruled out, troponin 0.02, 0.04, 0.05, no acute ischemic changes on EKG * 2-D echo * EEG ordered Imaging: Brain MRI: Unremarkable. No evidence of acute ischemia Brain MRA: Unremarkable. No evidence for large vessel occlusion or significant intracranial stenosis Neck MRA: Unremarkable carotid exam. Head CT: No acute intracranial abnormality (2) Back pain ICD Codes: M54.9 - Dorsalgia, unspecified Plan: Patient complains of back pain which he reports is similar to when he had a pulmonary embolism past. Well's score 4.5, Perc score 2 * Currently on Xarelto * No signs or symptoms of DVT at this time Imaging: Chest CTA: No evidence of pulmonary embolism. 19mm right lower lobe nodule. Malignancy is not excluded. PET/CT scan is recommended for further evaluation. (3) Hypertension ICD Codes: I10 - Hypertension Status: Acute Plan: Chronic hypertension. * Home medications held for now to allow for permissive hypertension * Vasotec PRN (4) Parkinson disease ICD Codes: G20 - Parkinson's disease Plan: History of Parkinson's * Continue carbidopa levodopa 25/100 mg every 8 hours- home medication (5) FEN Plan: Fluids * None, tolerating PO Electrolytes * Monitor and correct as needed Nutrition * Heart healthy diet Prophylaxis * Currently on Xarelto, SCDs * Zofran as needed (Doron Rose MD R3) Doron Rose MD R3 Feb 27, 2017 09:04 Christian Franklin MD Feb 28, 2017 12:59
[2017-02-27] MEDS: PREGABALIN 100 MG CAP PO SCH ×2 (09:40→21:55)
[2017-02-27] MEDS: RIVAROXABAN 20 MG TAB PO SCH (09:41)
[2017-02-27] MEDS: ASPIRIN EC 81 MG TABEC PO SCH (09:41)
[2017-02-27] MEDS: PRAMIPEXOLE DIHYDROCHLORIDE 0.25 MG TAB PO SCH ×3 (09:41→17:15)
[2017-02-27] MEDS: DOCUSATE SODIUM 50 MG/SENNA 8.6 MG TAB PO SCH ×2 (09:41→21:55)
[2017-02-27] MEDS: TIMOLOL MALEATE 0.5% OPHT SOLN 5 ML BTL EACH EYE SCH ×2 (09:44→21:56)
[2017-02-27] MEDS: BRIMONIDINE TARTRATE 0.2% OPHT SOLN 5 ML BTL EACH EYE SCH ×2 (09:44→21:57)
--- NOTE | 2017-02-27 09:48 | EKG ---
Date Performed: 02/26/2017 Time Performed: 21:38:03 PTAGE: 66 years EKG: Sinus bradycardia with frequent PVCs POSSIBLE LEFT ATRIAL ENLARGEMENT LEFT ANTERIOR FASCICU LAR BLOCK ABNORMAL ECG PREVIOUS TRACING : 02/26/2017 12.42 Compared to prior study, there is no significant change. DOCTOR: Juan Antonio Rose Interpretating Date/Time 02/27/2017 09:47:21
[2017-02-27] MEDS: SODIUM CHLOR 0.9% 1000 ML INJ 1,000 ML IV SCH (10:18)
--- NOTE | 2017-02-27 13:14 | EKG ---
Date Performed: 02/27/2017 Time Performed: 01:32:08 PTAGE: 66 years EKG: Sinus rhythm Left anterior fascicular block Borderline ECG PREVIOUS TRACING 02/26/17 Compared to the prior study, frequent ventricular and supraventricula r ectopy has resolved. DOCTOR: Juan Antonio Rose Interpretating Date/Time 02/27/2017 13:13:19
[2017-02-27] MEDS: ACETAMINOPHEN/HYDROcodone 325 MG/10 MG TAB PO PRN (21:56)
[2017-02-27] MEDS: LATANOPROST 0.005% OPHT SOLN 2.5 ML BTL EACH EYE SCH (21:57)
--- NOTE | 2017-02-27 21:58 | HHI.PR ---
Review/Management Diagnosis TIA--improving Plan follow up echocardiogram continue xarelto and asa add statin Diagnosis/Plan: Subjective Subjective Comments No acute events reported No headache Active Medications Current Medications Medications (Trade) Dose Ordered Sig/Cady Route Start Time Stop Time Status Last Admin (Sinemet 25-100 Mg) 1 tab Q8HR PO 02/26/17 22:00 02/27/17 13:31 (Xalatan 0.005% Opth Soln) 1 drop HS EACH EYE 02/26/17 21:00 02/26/17 20:40 (Mirapex) 0.25 mg TID PO 02/26/17 18:00 02/27/17 17:15 (Lyrica) 100 mg BID PO 02/26/17 21:00 02/27/17 09:40 (Xarelto) 20 mg DAILY PO 02/27/17 09:00 02/27/17 09:41 (Tylenol) 650 mg Q4H PRN PO 02/26/17 15:45 (Zofran Inj) 4 mg Q6H PRN IVP 02/26/17 15:45 (Tylenol) 650 mg Q6H PRN PO 02/26/17 15:45 ([place] 10-325 Mg) 1 tab Q4H PRN PO 02/26/17 15:45 02/26/17 22:49 (Percocet 5-325 Mg) 1 tab Q6H PRN PO 02/26/17 15:45 02/27/17 06:11 (Morphine Inj) 4 mg Q3H PRN IV PUSH 02/26/17 15:45 02/26/17 20:46 (Hyun-Colace) 1 tab BID PO 02/26/17 21:00 02/27/17 09:41 (Milk Of Magnesia Liq) 30 ml Q12H PRN PO 02/26/17 15:45 (Senokot) 17.2 mg Q12H PRN PO 02/26/17 15:45 (Dulcolax Supp) 10 mg DAILY PRN RECTAL 02/26/17 15:45 (Lactulose Liq) 30 ml DAILY PRN PO 02/26/17 15:45 (Vasotec Inj) 1.25 mg Q4H PRN IV PUSH 02/26/17 15:45 (Alphagan 0.2% Opth Soln) 1 drop Q12HR EACH EYE 02/26/17 21:00 02/27/17 09:44 (Timoptic 0.5% Opth Soln) 1 drop Q12HR EACH EYE 02/26/17 21:00 02/27/17 09:44 (Ecotrin Ec) 81 mg DAILY PO 02/26/17 19:00 02/27/17 09:41 (NS Flush) 2 ml BID IV FLUSH 02/26/17 21:00 02/27/17 09:00 (NS Flush) 2 ml UNSCH PRN IV FLUSH 02/26/17 19:00 (NovoLOG SUPPLEMENTAL SCALE) 1 ACHS SQ 02/26/17 21:00 (D50w (Vial) Inj) 50 ml UNSCH PRN IV PUSH 02/26/17 19:00 (Glucagon Inj) 1 mg UNSCH PRN OTHER 02/26/17 19:00 (Vasotec Inj) 1.25 mg Q6H PRN IV PUSH 02/26/17 19:00 02/27/17 09:52 (Vasotec Inj) 1.25 mg Q6H PRN IV PUSH 02/27/17 00:00 Allergies Allergies Coded Allergies gabapentin (Unverified Allergy, Severe, TACHYCARDIA, 01/02/17) Exam I&O / VS 02/27/17 02/27/17 02/28/17 15:00 23:00 07:00 Intake Total 463 ml Balance 463 ml Intake Oral 240 ml IV Total 223 ml Vital Signs Date Time Temp Pulse Resp B/P (MAP) Pulse Ox O2 Delivery O2 Flow Rate FiO2 02/27/17 20:00 98.5 63 18 187/87 (120) 97 02/27/17 18:00 75 02/27/17 15:53 99.0 65 19 168/83 (111) 95 02/27/17 12:54 98.9 63 18 184/88 (120) 97 02/27/17 08:29 98.5 72 16 194/93 (126) 94 02/27/17 04:00 97.7 66 18 189/99 (129) 94 02/27/17 00:00 98.2 70 18 152/68 (96) 96 Exam Comments alert, speech normal CN intact MOTOR 5/5 BUE Objective Micro and Labs Laboratory Tests Test 02/27/17 04:05 White Blood Count 7.0 Red Blood Count 3.81 Hemoglobin 11.7 Hematocrit 34.1 Mean Corpuscular Volume 89.4 Mean Corpuscular Hemoglobin 30.7 Mean Corpuscular Hemoglobin Concent 34.3 Red Cell Distribution Width 12.8 Platelet Count 216 Mean Platelet Volume 8.1 Prothrombin Time 12.3 Prothromb Time International Ratio 1.1 Blood Urea Nitrogen 16 Creatinine 1.01 Random Glucose 79 Calcium Level 8.2 Sodium Level 145 Potassium Level 3.5 Chloride Level 111 Carbon Dioxide Level 27.5 Anion Gap 7 Estimat Glomerular Filtration Rate 74 Total Creatine Kinase 170 Troponin I 0.05 Triglycerides Level 82 Cholesterol Level 156 LDL Cholesterol 91 HDL Cholesterol 48.6 Cholesterol/HDL Ratio 3.20 Florian Bess. PhD Feb 27, 2017 21:58
[2017-02-28] VITALS (7 sets, daily range): BP systolic 146–203; BP diastolic 70–98; PULSE 56–76; RESP 18–20; TEMP 98.2–99.1; O2SAT 95–98
[2017-02-28] MEDS: ENALAPRILAT 1.25 MG/ML VIAL IV PUSH PRN ×3 (04:55→16:54)
[2017-02-28] MEDS: ACETAMINOPHEN/HYDROcodone 325 MG/10 MG TAB PO PRN ×4 (04:55→21:35)
[2017-02-28] MEDS: CARBIDOPA/LEVODOPA 25 MG/100 MG TAB PO SCH ×3 (05:01→21:35)
[2017-02-28] MEDS: INSULIN ASPART SUPPLEMENTAL SCALE SQ SCH ×4 (08:00→21:00)
[2017-02-28] MEDS: PRAMIPEXOLE DIHYDROCHLORIDE 0.25 MG TAB PO SCH ×3 (08:32→16:54)
[2017-02-28] MEDS: ASPIRIN EC 81 MG TABEC PO SCH (08:32)
[2017-02-28] MEDS: RIVAROXABAN 20 MG TAB PO SCH (08:32)
[2017-02-28] MEDS: SPIRONOLACTONE 50 MG TAB PO SCH (08:32)
[2017-02-28] MEDS: PREGABALIN 100 MG CAP PO SCH ×2 (08:32→21:35)
[2017-02-28] MEDS: ATORVASTATIN 10 MG TAB PO SCH (08:33)
[2017-02-28] MEDS: FUROSEMIDE 40 MG TAB PO SCH ×2 (08:33→16:56)
[2017-02-28] MEDS: METOPROLOL SUCCINATE 50 MG EXTENDED RELEASE TAB PO SCH (08:33)
[2017-02-28] MEDS: SODIUM CHLORIDE 0.9% FLUSH 5 ML FLUSH IV FLUSH SCH ×2 (08:33→21:00)
[2017-02-28] MEDS: BRIMONIDINE TARTRATE 0.2% OPHT SOLN 5 ML BTL EACH EYE SCH ×2 (08:34→21:35)
[2017-02-28] MEDS: TIMOLOL MALEATE 0.5% OPHT SOLN 5 ML BTL EACH EYE SCH ×2 (08:34→21:35)
[2017-02-28] MEDS: DOCUSATE SODIUM 50 MG/SENNA 8.6 MG TAB PO SCH ×3 (08:34→21:34)
[2017-02-28 08:41] LABS: AUTOMATED NEUTROPHIL # 6.3 TH/MM3 (1.8-7.7); BASOPHIL % 0.3 % (0.0-2.0); EOSINOPHIL # 0.2 TH/MM3 (0-0.4); EOSINOPHIL % 2.1 % (0.0-4.0); HEMATOCRIT 36.2 % (39.0-51.0); HEMO FLAGS DIFF FINAL; LYMPH % 11.5 % (9.0-44.0); MEAN CELL VOLUME 89.1 FL (80.0-100.0); MEAN CORPUSCULAR HEMOGLOBIN 30.7 PG (27.0-34.0); MEAN CORPUSCULAR HGB CONC 34.4 % (32.0-36.0); MONO % 10.8 % (0.0-8.0); NEUT % 75.3 % (16.0-70.0); PLATELET COUNT 221 TH/MM3 (150-450); RED BLOOD COUNT 4.07 MIL/MM3 (4.50-5.90); RED CELL DISTRIBUTION WIDTH 12.6 % (11.6-17.2); WHITE BLOOD COUNT 8.4 TH/MM3 (4.0-11.0)
--- NOTE | 2017-02-28 08:50 | HHI.FPPN ---
Subjective Remarks Patient was seen and examined this morning. He did not get much sleep last night. He notes chest tightness since waking up this morning, constant, nonradiating. He also endorses persistent weakness, unchanged from admission, along with possible palpitations. No shortness of breath, n/v fevers, chills. Had an episode of diarrhea this morning. Objective Vitals Vital Signs Date Time Temp Pulse Resp B/P (MAP) Pulse Ox O2 Delivery O2 Flow Rate FiO2 02/28/17 08:36 98.8 73 18 203/98 (133) 95 02/28/17 04:29 98.2 71 18 203/93 (129) 97 02/28/17 00:30 98.6 65 18 146/70 (95) 97 02/27/17 23:01 74 02/27/17 22:30 97 02/27/17 20:00 98.5 63 18 187/87 (120) 97 02/27/17 18:00 75 02/27/17 15:53 99.0 65 19 168/83 (111) 95 02/27/17 12:54 98.9 63 18 184/88 (120) 97 I/O 02/27/17 02/27/17 02/27/17 02/28/17 02/28/17 02/28/17 07:00 15:00 23:00 07:00 15:00 23:00 Intake Total 463 ml Output Total 700 ml 500 ml Balance -700 ml 463 ml -500 ml Intake Oral 240 ml IV Total 223 ml Output Urine Total 700 ml 500 ml # Voids 3 Result Diagram: 02/28/17 0745 02/27/17 0405 Imaging Last Impressions Neck Magnetic Resonance Angiography 02/26/171409 Signed Impressions: Service Date/Time: Sunday, February 26, 2017 16:02 - CONCLUSION: 1. Unremarkable carotid MRA examination. No significant flow-limiting stenosis. Ayush Zamora MD Head Magnetic Resonance Angiography 02/26/171409 Signed Impressions: Service Date/Time: Sunday, February 26, 2017 16:02 - CONCLUSION: 1. Unremarkable MRA examination of the brain. Specifically, no evidence for large vessel occlusion or significant intracranial stenosis. Ayush Zamora MD Brain MRI 02/26/171409 Signed Impressions: Service Date/Time: Sunday, February 26, 2017 16:02 - CONCLUSION: 1. Unremarkable MRI examination the brain. Specifically, no evidence of acute ischemia. Ayush Zamora MD Head CT 02/26/17 1222 Signed Impressions: Service Date/Time: Sunday, February 26, 2017 13:26 - CONCLUSION: 1. No acute intracranial abnormality. Ayush Zamora MD Chest X-Ray 02/26/17 1222 Signed Impressions: Service Date/Time: Sunday, February 26, 2017 12:51 - CONCLUSION: No acute disease. Ranjit Valero MD FACR Carotid Artery Ultrasound 02/26/17 0000 Signed Impressions: Service Date/Time: Sunday, February 26, 2017 18:48 - CONCLUSION: No evidence of hemodynamically significant lesion. Juan Antonio Watson MD CT Angiography 02/26/17 0000 Signed Impressions: Service Date/Time: Sunday, February 26, 2017 19:45 - CONCLUSION: 1. No evidence of pulmonary embolism. 2. 19 mm right lower lobe nodule. Malignancy is not excluded. PET/CT scan is recommended to further evaluation if clinically indicated. Juan Antonio Watson MD Objective Remarks GENERAL: This is a well-nourished, well-developed patient, lying in bed in no apparent distress. SKIN: No rashes, ecchymoses or lesions. Warm, mildly diaphoretic. HEAD: Atraumatic. Normocephalic. EYES: Extraocular motions intact. No scleral icterus. No injection or drainage. Visual [place] intact. ENT: Nose without bleeding, purulent drainage or septal hematoma. Uvula midline. Airway patent. NECK: Trachea midline. No JVD or lymphadenopathy. CARDIOVASCULAR: Regular rate and rhythm without murmurs, gallops, or rubs. RESPIRATORY: Clear to auscultation. Breath sounds equal bilaterally. No wheezes , rales, or rhonchi. GASTROINTESTINAL: Abdomen soft, non-tender, nondistended. No guarding. MUSCULOSKELETAL: Extremities without clubbing, cyanosis, or edema. NEUROLOGICAL: Awake and alert. Cranial nerves II through XII intact. Sensory grossly within normal limits bilaterally in arms and legs. Five out of 5 muscle strength on left side, 4/5 in right arm and leg. Normal speech. Medications and IVs Inpatient Medications Acetaminophen (Tylenol) 650 mg Q6H PRN PO PAIN SCALE 1 TO 2; Start 02/26/17 at 15:45 Acetaminophen/ Hydrocodone Bitart ([place] 10-325 Mg) 1 tab Q4H PRN PO PAIN SCALE 6 TO 10 Last administered on 02/28/17 04:55; Start 02/26/17 at 15:45 Aspirin (Ecotrin Ec) 81 mg DAILY PO Last administered on 02/28/17 08:32; Start 02/26/17 at 19:00 Atorvastatin Calcium (Lipitor) 10 mg DAILY PO Last administered on 02/28/17 08:33; Start 02/28/17 at 09:00 Bisacodyl (Dulcolax Supp) 10 mg DAILY PRN RECTAL SEVERE CONSITIPATION; Start 02/26/17 at 15:45 Brimonidine Tartrate (Alphagan 0.2% Opt Soln) 1 drop Q12HR EACH EYE Last administered on 02/28/17 08:34; Start 02/26/17 at 21:00 Carbidopa/Levodopa (Sinemet 25-100 Mg) 1 tab Q8HR PO Last administered on 02/28 05:01; Start 02/26/17 at 22:00 Dextrose (D50w (Vial) Inj) 50 ml UNSCH PRN IV PUSH HYPOGLYCEMIA-SEE COMMENTS; Start 02/26/17 at 19:00 Enalaprilat (Vasotec Inj) 1.25 mg Q6H PRN IV PUSH SBP> OR = 180, DBP> OR = 100 ; Start 02/27/17 at 00:00 Furosemide (Lasix) 40 mg DAILY@0900,1800 PO Last administered on 02/28/17 08: 33; Start 02/28/17 at 09:00 Glucagon (Glucagon Inj) 1 mg UNSCH PRN OTHER HYPOGLYCEMIA-SEE COMMENTS; Start 02/26/17 at 19:00 Insulin Aspart (NovoLOG SUPPLEMENTAL SCALE) 1 ACHS SQ ; Start 02/26/17 at 21:00 IV Flush (NS Flush) 2 ml UNSCH PRN IV FLUSH FLUSH AFTER USING IV ACCESS; Start 02/26/17 at 19:00 Lactulose (Lactulose Liq) 30 ml DAILY PRN PO SEVERE CONSITIPATION; Start at 15:45 Latanoprost (Xalatan 0.005% Opth Soln) 1 drop HS EACH EYE Last administered on 02/27/17 21:57; Start 02/26/17 at 21:00 Magnesium Hydroxide (Milk Of Magnesia Liq) 30 ml Q12H PRN PO MILD - MODERATE CONSTIPATION; Start 02/26/17 at 15:45 Metolazone (Zaroxolyn) 5 mg DAILY PO ; Start 02/28/17 at 09:00 Metoprolol Succinate (Toprol Xl) 50 mg DAILY PO Last administered on 08:33; Start 02/28/17 at 09:00 Morphine Sulfate (Morphine Inj) 4 mg Q3H PRN IV PUSH BREAKTHROUGH PAIN Last administered on 02/26/17 20:46; Start 02/26/17 at 15:45 Ondansetron HCl (Zofran Inj) 4 mg Q6H PRN IVP NAUSEA OR VOMITING; Start at 15:45 Oxycodone/ Acetaminophen (Percocet 5-325 Mg) 1 tab Q6H PRN PO PAIN SCALE 3 TO 5 Last administered on 02/27/17 06:11; Start 02/26/17 at 15:45 Potassium Chloride (KCl) 40 meq ONCE ONCE PO ; Start 02/28/17 at 10:15; Stop 02/28/17 at 10:16 Pramipexole Dihydrochloride (Mirapex) 0.25 mg TID PO Last administered on 02/28 08:32; Start 02/26/17 at 18:00 Pregabalin (Lyrica) 100 mg BID PO Last administered on 02/28/17 08:32; Start 02/26/17 at 21:00 Rivaroxaban (Xarelto) 20 mg DAILY PO Last administered on 02/28/17 08:32; Start 02/27/17 at 09:00 Senna/Docusate Sodium (Hyun-Colace) 1 tab BID PO Last administered on 21:55; Start 02/26/17 at 21:00 Sennosides (Senokot) 17.2 mg Q12H PRN PO MODERATE - SEVERE CONSTIPATION; Start 02/26/17 at 15:45 Sodium Chloride 1,000 ml @ 70 mls/hr [id number] IV Last administered on 10:18; Start 02/26/17 at 20:00; Stop 02/27/17 at 15:35; Status DC Sodium Chloride (NS Flush) 2 ml BID IV FLUSH ; Start 02/26/17 at 21:00; Stop at 21:00; Status DC Spironolactone (Aldactone) 50 mg DAILY PO Last administered on 02/28/17 08:32 ; Start 02/28/17 at 09:00 Timolol Maleate (Timoptic 0.5% Opt Soln) 1 drop Q12HR EACH EYE Last administered on 02/28/17 08:34; Start 02/26/17 at 21:00 Urinary Catheter: No Vascular Central Line Catheter: No A/P Assessment and Plan 66 year old male with a past history of Parkinsons, HTN, PE, CHF who presented to the ED due to right sided weakness. Right-sided weakness persisting. Past history of right-sided hemiplegia, reported to have had an episode similar to this a few years ago. PE workup negative. CVA workup unremarkable so far. Neurology following Discharge Planning CVA workup still in progress. Cardiology consulted 02/28 for chest tightness, abnormal EKG Problem List: (1) Chest tightness or pressure ICD Codes: R07.89 - Other chest pain Status: Acute Plan: New reports of chest tightness since early this morning. Hx CHF, HTN, sedentary. Chest pain is constant. Given CAD hx, workup initiated including stat EKG, which shows no evidence of ST changes but does show worsened AV conduction. PE workup negative on admission. * Will trend cardiac enzymes and EKG * CXR ordered * Echocardiogram ordered 02/26 still pending * Cardiology consulted to assist in management * Cont ASA, also on Plavix for hx DVT * Nitrate SL PRN, morphine if needed (2) Hemiplegia ICD Codes: G81.90 - Hemiplegia, unspecified affecting unspecified side Status: Acute Plan: Patient presented with right-sided cassi-plegia. No other focal neurological deficits noted. CT head without acute process, head MRA unremarkable, brain MRI unremarkable, neck MRA unremarkable. * Neurology consulted, appreciate recommendations * Neuro checks every 4hr, no acute changes this admission * Telemetry * ACS ruled out on admission, troponin 0.02, 0.04, 0.05, no acute ischemic changes on EKG * 2-D echo pending * Came from [facility], [facility], will return Imaging: Brain MRI: Unremarkable. No evidence of acute ischemia Brain MRA: Unremarkable. No evidence for large vessel occlusion or significant intracranial stenosis Neck MRA: Unremarkable carotid exam. Head CT: No acute intracranial abnormality Carotid US: No hemodynamically significant stenosis (3) Back pain ICD Codes: M54.9 - Dorsalgia, unspecified Plan: Patient complains of back pain which he reports is similar to when he had a pulmonary embolism past. Well's score 4.5, Perc score 2 * Currently on Xarelto, ASA initiated * No signs or symptoms of DVT at this time Imaging: Chest CTA: No evidence of pulmonary embolism. 19mm right lower lobe nodule. Malignancy is not excluded. PET/CT scan is recommended for further evaluation, counseled patient about findings and need for outpt followup (4) Hypertension ICD Codes: I10 - Hypertension Status: Acute Plan: Chronic HTN. * Home medications held for now to allow for permissive hypertension * Vasotec PRN (5) Parkinson disease ICD Codes: G20 - Parkinson's disease Plan: History of Parkinson's * Continue carbidopa levodopa 25/100 mg every 8 hours- home medication (6) FEN Plan: Fluids * None, tolerating PO, will consider gentle IVF if indicated Electrolytes * Monitor and correct as needed Nutrition * Heart healthy diet Prophylaxis * Currently on Xarelto, SCDs * Zofran as needed Candelaria Rose MD R2 Feb 28, 2017 08:50
[2017-02-28] MEDS: METOLAZONE 5 MG TAB PO SCH (09:00)
[2017-02-28 09:26] LABS: ALKALINE PHOSPHATASE 63 U/L (45-117); ALT (GPT) 7 U/L (12-78); ANION GAP 8 MEQ/L (5-15); AST (GOT) 27 U/L (15-37); BICARBONATE 25.6 MEQ/L (21.0-32.0); BLOOD UREA NITROGEN 13 MG/DL (7-18); CHLORIDE 108 MEQ/L (98-107); GLOMERULAR FILTRATION RATE 90 ML/MIN (>89); POTASSIUM 3.2 MEQ/L (3.5-5.1); SODIUM (NA) 142 MEQ/L (136-145); TOTAL BILIRUBIN ADULT 0.9 MG/DL (0.2-1.0)
--- NOTE | 2017-02-28 10:06 | HHI.FPPN ---
Subjective Remarks Patient was seen and examined this morning. He did not get much sleep last night. He notes chest tightness since waking up this morning, constant, nonradiating. Objective Vitals Vital Signs Date Time Temp Pulse Resp B/P (MAP) Pulse Ox O2 Delivery O2 Flow Rate FiO2 02/28/17 08:36 98.8 73 18 203/98 (133) 95 02/28/17 04:29 98.2 71 18 203/93 (129) 97 02/28/17 00:30 98.6 65 18 146/70 (95) 97 02/27/17 23:01 74 02/27/17 22:30 97 02/27/17 20:00 98.5 63 18 187/87 (120) 97 02/27/17 18:00 75 02/27/17 15:53 99.0 65 19 168/83 (111) 95 02/27/17 12:54 98.9 63 18 184/88 (120) 97 I/O 02/27/17 02/27/17 02/27/17 02/28/17 02/28/17 02/28/17 07:00 15:00 23:00 07:00 15:00 23:00 Intake Total 463 ml Output Total 700 ml 500 ml Balance -700 ml 463 ml -500 ml Intake Oral 240 ml IV Total 223 ml Output Urine Total 700 ml 500 ml # Voids 3 Result Diagram: 02/28/17 0745 02/28/17 0745 Objective Remarks GENERAL: This is a well-nourished, well-developed patient, in no apparent distress. SKIN: No rashes, ecchymoses or lesions. Cool and dry. HEAD: Atraumatic. Normocephalic. EYES: Extraocular motions intact. No scleral icterus. No injection or drainage. Visual [place] intact. ENT: Nose without bleeding, purulent drainage or septal hematoma. Uvula midline. Airway patent. NECK: Trachea midline. No JVD or lymphadenopathy. CARDIOVASCULAR: Regular rate and rhythm without murmurs, gallops, or rubs. RESPIRATORY: Clear to auscultation. Breath sounds equal bilaterally. No wheezes , rales, or rhonchi. GASTROINTESTINAL: Abdomen soft, non-tender, nondistended. No guarding. MUSCULOSKELETAL: Extremities without clubbing, cyanosis, or edema. NEUROLOGICAL: Awake and alert. Cranial nerves II through XII intact. Sensory grossly within normal limits bilaterally in arms and legs. Five out of 5 muscle strength on left side, 4/5 in right arm and leg. Normal speech. A/P Assessment and Plan 66 year old male with a past history of Parkinsons, HTN, PE, CHF who presented to the ED due to right sided weakness. Currently demonstrating right-sided hemiplegia. Past history of right-sided hemiplegia, reported to have had an episode similar to this a few years ago. Also complains of a back pain which is "similar to when I had a PE." Wells criteria for 4.5. Perc score 2. Discharge Planning Anticipate discharge once patient is medically stable and has been cleared by neurology, pending results of CVA work up. Problem List: (1) Hemiplegia ICD Codes: G81.90 - Hemiplegia, unspecified affecting unspecified side Plan: Patient presented with right-sided cassi-plegia. No other focal neurological deficits noted. CT head without acute process, head MRA unremarkable, brain MRI unremarkable, neck MRA unremarkable. * Neurology consulted, appreciate recommendations * Neuro checks every 4 * Telemetry * ACS ruled out, troponin 0.02, 0.04, 0.05, no acute ischemic changes on EKG * 2-D echo * EEG ordered Imaging: Brain MRI: Unremarkable. No evidence of acute ischemia Brain MRA: Unremarkable. No evidence for large vessel occlusion or significant intracranial stenosis Neck MRA: Unremarkable carotid exam. Head CT: No acute intracranial abnormality (2) Back pain ICD Codes: M54.9 - Dorsalgia, unspecified Plan: Patient complains of back pain which he reports is similar to when he had a pulmonary embolism past. Well's score 4.5, Perc score 2 * Currently on Xarelto * No signs or symptoms of DVT at this time Imaging: Chest CTA: No evidence of pulmonary embolism. 19mm right lower lobe nodule. Malignancy is not excluded. PET/CT scan is recommended for further evaluation. (3) Hypertension ICD Codes: I10 - Hypertension Status: Acute Plan: Chronic hypertension. * Home medications held for now to allow for permissive hypertension * Vasotec PRN (4) Parkinson disease ICD Codes: G20 - Parkinson's disease Plan: History of Parkinson's * Continue carbidopa levodopa 25/100 mg every 8 hours- home medication (5) FEN Plan: Fluids * None, tolerating PO Electrolytes * Monitor and correct as needed Nutrition * Heart healthy diet Prophylaxis * Currently on Xarelto, SCDs * Zofran as needed Candelaria Rose MD R2 Feb 28, 2017 10:06
[2017-02-28] MEDS ORDERED: POTASSIUM CHLORIDE 20 MEQ CONTROLLED RELEASE TAB PO ONE (10:15)
[2017-02-28] MEDS ORDERED: MORPHINE SULFATE 4 MG/ML INJ IV PUSH PRN (10:45)
[2017-02-28] MEDS ORDERED: NITROGLYCERIN 0.4 MG SL 25 TABS/BTL SL PRN (10:45)
--- NOTE | 2017-02-28 11:02 | RADRPT ---
EXAM DATE/TIME: 02/28/2017 10:29 [facility] COMPARISON: CHEST SINGLE AP, February 26, 2017, 12:51. INDICATIONS : Chest pain for two days. MEDICAL HISTORY : Hypertension. Arthritis. Right shoulder. DDD. SURGICAL HISTORY : Inguinal hernia repair. DDD. Glaucoma. ENCOUNTER: Subsequent ACUITY: 2 days PAIN SCORE: 5/10 LOCATION: Bilateral chest FINDINGS: The lungs are clear. The heart is minimally enlarged. The pulmonary vascularity is normal. There is n o evidence for infiltrate or failure. The portion of the bony skeleton visualized is unremarkable. CONCLUSION: Compensated cardiomegaly otherwise negative Ranjit Valero MD FACR on February 28, 2017 at 11:00 Board Certified Radiologist. This report was verified electronically.
[2017-02-28 11:15] LABS: MAGNESIUM 2.1 MG/DL (1.5-2.5)
[2017-02-28 11:30] LABS: CKMB 3.1 NG/ML (0.5-3.6)
[2017-02-28] MEDS: oxyCODONE/ACETAMINOPHEN 5 MG/325 MG TAB PO PRN (13:50)
--- NOTE | 2017-02-28 14:12 | PD.CONS ---
Assessment and Plan Assessment Consult received per stroke order set. EMR reviewed. MRI negative for acute stroke. Neurology consult reviewed and indicates TIA. Consult deferred due to no acute stroke. Please reconsult as appropriate. Thank you. Mitra Holt MD Feb 28, 2017 14:12
--- NOTE | 2017-02-28 14:40 | EKG ---
Date Performed: 02/28/2017 Time Performed: 09:37:57 PTAGE: 66 years EKG: SINUS BRADYCARDIA, PVCs NOTED LEFT ANTERIOR FASCICULAR BLOCK NON-SPECIFIC ST/T WAVE CHANGES ABNORMAL ECG PREVIOUS TRACING : 02/27/2017 01.32 Compared to prior tracing no significant change DOCTOR: Laith Shields Interpretating Date/Time 02/28/2017 14:38:49
--- NOTE | 2017-02-28 15:13 | MB ---
cc: SETH ZHANG DATE OF CONSULTATION: 02/28/2017 HISTORY OF PRESENT ILLNESS Mr. Jeffers is a 66-year-old white male with a history of hypertension, pulmonary embolism, congestive heart failure and Parkinson's disease. He presented with right-sided weakness after he woke up in the [facility]. He went back to bed and subsequently woke up with a headache. He might have had slurred speech and blurred vision and nausea. He has been diagnosed with a left hemispheric stroke. He still has persistent left side weakness. He complains of left substernal chest discomfort which is persistent. PAST MEDICAL HISTORY 1. Atrial fibrillation. 2. Congestive heart failure. 3. Hypertension. 4. Parkinson's disease. 5. Gastroesophageal reflux disease. 6. BPH. 7. DVT. 8. Arthritis. MEDICATIONS Medications at home include: 1. Aldactone. 2. Vitamin-D3. 3. Combigan ophthalmic drops. 4. Lasix. 5. Ibuprofen. 6. Latanoprost eye drops. 7. Lyrica. 8. Minoxidil. 9. Oxycodone. 10.Pramipexole. 11.Terazosin. 12.Tizanidine. 13.Metoprolol. 14.Trental. 15.Xarelto 20 mg q. day. 16.Sinemet. ALLERGIES GABAPENTIN. SOCIAL HISTORY Patient does not smoke, does not drink alcohol. FAMILY HISTORY Positive for heart disease. REVIEW OF SYSTEMS Otherwise negative. PHYSICAL EXAMINATION VITAL SIGNS: Blood pressure 186/91, pulse 76 and regular. HEENT: Negative. 2+ carotid upstrokes. No bruits. LUNGS: Clear. HEART: Regular with no murmur, gallop or rub. ABDOMEN: Soft. No bruits. EXTREMITIES: Without edema. 2+ distal pulses. NEUROLOGIC: Grossly nonfocal. EKG EKG was reviewed and showed normal sinus rhythm, left axis, left anterior fascicular block, PVCs. LABORATORY Hemoglobin 12.5. Potassium 3.2. Creatinine 0.85. AST 28 and ALT normal. CK 168, 170, 313. CK-MB and CK-MB index normal. Troponin 0.04, 0.05, and 0.04. LDL 91, HDL 49. DIAGNOSIS 1. Unspecified angina. 2. TIA. 3. Paroxysmal atrial fibrillation. 4. Congestive heart failure. 5. Hypertension. DISPOSITION Mr. Jeffers will be scheduled for an adenosine myocardial perfusion study ischemia. He understands the risks and benefits and wishes to proceed. Will continue his current medical program including permissive hypertension. I will follow him for cardiology during the hospitalization. MD UMER Roberson/GERSON /2:15 PM /2:47 PM
--- NOTE | 2017-02-28 16:25 | MG ---
cc: CAMILO COLLINS M.D. Sex: M DATE OF STUDY: 02/27/2011 INTRODUCTION: An EEG was obtained on this 66 year-old patient being evaluated for weakness, slurred speech, headache. DESCRIPTION: The patient is described as awake and asleep. The EEG shows 8 to 9 per second low to mid amplitude rhythm in the center and posterior head regions. The background is reactive. There are low amplitude beta rhythms centrally and frontally. There is drowsiness. There are more theta rhythms and more beta activity during the drowsiness recording. Hyperventilation was not performed. Photic stimulation showed some driving response bilaterally. INTERPRETATION: Normal awake and drowsy EEG. Camilo Collins MD [facility] /4:00 PM /4:11 PM
--- NOTE | 2017-02-28 17:33 | HHI.PR ---
Review/Management Diagnosis right hemiparesis--initial brain MRI normal Plan repeat MRI brain MRI cervical spine Diagnosis/Plan: Subjective Subjective Comments No acute events reported still c/o weakness right upper and lower extremities. Active Medications Current Medications Medications (Trade) Dose Ordered Sig/Cady Route Start Time Stop Time Status Last Admin (Sinemet 25-100 Mg) 1 tab Q8HR PO 02/26/17 22:00 02/28/17 12:43 (Xalatan 0.005% Opth Soln) 1 drop HS EACH EYE 02/26/17 21:00 02/27/17 21:57 (Mirapex) 0.25 mg TID PO 02/26/17 18:00 02/28/17 16:54 (Lyrica) 100 mg BID PO 02/26/17 21:00 02/28/17 08:32 (Xarelto) 20 mg DAILY PO 02/27/17 09:00 02/28/17 08:32 (Tylenol) 650 mg Q4H PRN PO 02/26/17 15:45 (Zofran Inj) 4 mg Q6H PRN IVP 02/26/17 15:45 (Tylenol) 650 mg Q6H PRN PO 02/26/17 15:45 ([place] 10-325 Mg) 1 tab Q4H PRN PO 02/26/17 15:45 02/28/17 17:00 (Percocet 5-325 Mg) 1 tab Q6H PRN PO 02/26/17 15:45 02/28/17 13:50 (Hyun-Colace) 1 tab BID PO 02/26/17 21:00 02/27/17 21:55 (Milk Of Magnesia Liq) 30 ml Q12H PRN PO 02/26/17 15:45 (Senokot) 17.2 mg Q12H PRN PO 02/26/17 15:45 (Dulcolax Supp) 10 mg DAILY PRN RECTAL 02/26/17 15:45 (Lactulose Liq) 30 ml DAILY PRN PO 02/26/17 15:45 (Vasotec Inj) 1.25 mg Q4H PRN IV PUSH 02/26/17 15:45 (Alphagan 0.2% Opth Soln) 1 drop Q12HR EACH EYE 02/26/17 21:00 02/28/17 08:34 (Timoptic 0.5% Opth Soln) 1 drop Q12HR EACH EYE 02/26/17 21:00 02/28/17 08:34 (Ecotrin Ec) 81 mg DAILY PO 02/26/17 19:00 02/28/17 08:32 (NS Flush) 2 ml BID IV FLUSH 02/26/17 21:00 02/28/17 08:33 (NS Flush) 2 ml UNSCH PRN IV FLUSH 02/26/17 19:00 (NovoLOG SUPPLEMENTAL SCALE) 1 ACHS SQ 02/26/17 21:00 (D50w (Vial) Inj) 50 ml UNSCH PRN IV PUSH 02/26/17 19:00 (Glucagon Inj) 1 mg UNSCH PRN OTHER 02/26/17 19:00 (Vasotec Inj) 1.25 mg Q6H PRN IV PUSH 02/26/17 19:00 02/28/17 16:54 (Vasotec Inj) 1.25 mg Q6H PRN IV PUSH 02/27/17 00:00 (Lipitor) 10 mg DAILY PO 02/28/17 09:00 02/28/17 08:33 (Lasix) 40 mg DAILY@0900,1800 PO 02/28/17 09:00 02/28/17 16:56 (Zaroxolyn) 5 mg DAILY PO 02/28/17 09:00 (Toprol Xl) 50 mg DAILY PO 02/28/17 09:00 02/28/17 08:33 (Aldactone) 50 mg DAILY PO 02/28/17 09:00 02/28/17 08:32 (Nitrostat Sl) 0.4 mg Q5M PRN SL 02/28/17 10:45 (Morphine Inj) 2 mg Q30M PRN IV PUSH 02/28/17 10:45 Allergies Allergies Coded Allergies gabapentin (Unverified Allergy, Severe, TACHYCARDIA, 01/02/17) Exam I&O / VS 02/28/17 02/28/17 03/01/17 14:59 22:59 06:59 Output Total 750 ml Balance -750 ml Output Urine Total 750 ml # Bowel Movements 2 Vital Signs Date Time Temp Pulse Resp B/P (MAP) Pulse Ox O2 Delivery O2 Flow Rate FiO2 02/28/17 16:00 99.1 59 20 187/86 (119) 96 02/28/17 12:15 98.7 76 18 186/91 (122) 97 02/28/17 08:36 98.8 73 18 203/98 (133) 95 02/28/17 08:00 76 02/28/17 04:29 98.2 71 18 203/93 (129) 97 02/28/17 00:30 98.6 65 18 146/70 (95) 97 02/27/17 23:01 74 02/27/17 22:30 97 02/27/17 20:00 98.5 63 18 187/87 (120) 97 02/27/17 18:00 75 Exam Comments alert, speech normal CN intact MOTOR 4/5 RUE and 4/5 RLE, 5/5 left Objective Micro and Labs Laboratory Tests Test 02/28/17 07:45 02/28/17 15:00 White Blood Count 8.4 Red Blood Count 4.07 Hemoglobin 12.5 Hematocrit 36.2 Mean Corpuscular Volume 89.1 Mean Corpuscular Hemoglobin 30.7 Mean Corpuscular Hemoglobin Concent 34.4 Red Cell Distribution Width 12.6 Platelet Count 221 Mean Platelet Volume 8.3 Neutrophils (%) (Auto) 75.3 Lymphocytes (%) (Auto) 11.5 Monocytes (%) (Auto) 10.8 Eosinophils (%) (Auto) 2.1 Basophils (%) (Auto) 0.3 Neutrophils # (Auto) 6.3 Lymphocytes # (Auto) 1.0 Monocytes # (Auto) 0.9 Eosinophils # (Auto) 0.2 Basophils # (Auto) 0.0 CBC Comment DIFF FINAL Differential Comment Erythrocyte Sedimentation Rate 6 Blood Urea Nitrogen 13 Creatinine 0.85 Random Glucose 94 Total Protein 6.3 Albumin 3.3 Calcium Level 9.1 Alkaline Phosphatase 63 Aspartate Amino Transf (AST/SGOT) 27 Alanine Aminotransferase (ALT/SGPT) 7 Total Bilirubin 0.9 Sodium Level 142 Potassium Level 3.2 Chloride Level 108 Carbon Dioxide Level 25.6 Anion Gap 8 Estimat Glomerular Filtration Rate 90 Phosphorus Level 2.3 Magnesium Level 2.1 Total Creatine Kinase 313 Creatine Kinase MB 3.1 Creatine Kinase MB % 1.0 Troponin I 0.04 Florian Bess PhD Feb 28, 2017 17:33
[2017-02-28 20:41] LABS: CKMB 3.1 NG/ML (0.5-3.6)
[2017-02-28] MEDS: LATANOPROST 0.005% OPHT SOLN 2.5 ML BTL EACH EYE SCH (21:36)
[2017-03-01] VITALS (11 sets, daily range): BP systolic 144–197; BP diastolic 80–103; PULSE 56–67; RESP 16–20; TEMP 97.9–98.7; O2SAT 95–98
[2017-03-01] MEDS: ACETAMINOPHEN/HYDROcodone 325 MG/10 MG TAB PO PRN ×4 (01:20→21:35)
[2017-03-01] MEDS: CARBIDOPA/LEVODOPA 25 MG/100 MG TAB PO SCH ×3 (05:27→21:34)
[2017-03-01] MEDS: DOCUSATE SODIUM 50 MG/SENNA 8.6 MG TAB PO SCH ×2 (07:54→21:33)
[2017-03-01] MEDS: INSULIN ASPART SUPPLEMENTAL SCALE SQ SCH ×4 (07:59→21:00)
[2017-03-01] MEDS: BRIMONIDINE TARTRATE 0.2% OPHT SOLN 5 ML BTL EACH EYE SCH ×2 (08:00→21:32)
[2017-03-01] MEDS: TIMOLOL MALEATE 0.5% OPHT SOLN 5 ML BTL EACH EYE SCH ×2 (08:00→21:31)
[2017-03-01 08:46] LABS: AUTOMATED NEUTROPHIL # 4.5 TH/MM3 (1.8-7.7); BASOPHIL % 0.5 % (0.0-2.0); EOSINOPHIL # 0.2 TH/MM3 (0-0.4); HEMATOCRIT 37.2 % (39.0-51.0); HEMO FLAGS DIFF FINAL; LYMPH % 16.4 % (9.0-44.0); LYMPHOCYTE # 1.1 TH/MM3 (1.0-4.8); MEAN CELL VOLUME 88.9 FL (80.0-100.0); MEAN CORPUSCULAR HEMOGLOBIN 30.7 PG (27.0-34.0); MEAN CORPUSCULAR HGB CONC 34.6 % (32.0-36.0); MONO % 13.5 % (0.0-8.0); NEUT % 66.6 % (16.0-70.0); PLATELET COUNT 215 TH/MM3 (150-450); RED BLOOD COUNT 4.18 MIL/MM3 (4.50-5.90); RED CELL DISTRIBUTION WIDTH 12.5 % (11.6-17.2); WHITE BLOOD COUNT 6.8 TH/MM3 (4.0-11.0)
[2017-03-01] MEDS: SODIUM CHLORIDE 0.9% FLUSH 5 ML FLUSH IV FLUSH SCH ×2 (09:00→21:00)
[2017-03-01] MEDS: METOPROLOL SUCCINATE 50 MG EXTENDED RELEASE TAB PO SCH (09:00)
[2017-03-01 09:10] LABS: BICARBONATE 27.3 MEQ/L (21.0-32.0); POTASSIUM 3.1 MEQ/L (3.5-5.1)
[2017-03-01] MEDS: ASPIRIN EC 81 MG TABEC PO SCH (09:55)
[2017-03-01] MEDS: PRAMIPEXOLE DIHYDROCHLORIDE 0.25 MG TAB PO SCH ×3 (09:55→16:57)
[2017-03-01] MEDS: METOLAZONE 5 MG TAB PO SCH (09:55)
[2017-03-01] MEDS: SPIRONOLACTONE 50 MG TAB PO SCH (09:55)
[2017-03-01] MEDS: ATORVASTATIN 10 MG TAB PO SCH (09:55)
[2017-03-01] MEDS: PREGABALIN 100 MG CAP PO SCH ×2 (09:55→21:33)
[2017-03-01] MEDS: RIVAROXABAN 20 MG TAB PO SCH (09:56)
[2017-03-01] MEDS: FUROSEMIDE 40 MG TAB PO SCH ×2 (09:59→16:57)
[2017-03-01] MEDS ORDERED: POTASSIUM CHLORIDE 20 MEQ CONTROLLED RELEASE TAB PO ONE (10:00)
--- NOTE | 2017-03-01 11:28 | HHI.FPPN ---
Subjective Remarks Patient seen and examined today. States he still feels weak, somewhat tired. Believes his right side is still is weak as when he came in. Blurred vision resolved. Continues to have mild back pain. No chest pain, shortness of breath, palpitations, abdominal pain. Objective Vitals Vital Signs Date Time Temp Pulse Resp B/P (MAP) Pulse Ox O2 Delivery O2 Flow Rate FiO2 03/01/17 10:37 97 21 03/01/17 10:20 57 03/01/17 07:45 97.9 58 19 188/83 (118) 95 03/01/17 05:23 98.7 58 18 166/80 (108) 96 03/01/17 00:06 98.3 56 18 183/91 (121) 97 03/01/17 00:00 61 02/28/17 20:40 98.6 56 18 182/84 (116) 98 02/28/17 16:00 99.1 59 20 187/86 (119) 96 02/28/17 12:15 98.7 76 18 186/91 (122) 97 I/O 02/28/17 02/28/17 02/28/17 03/01/17 03/01/17 03/01/17 06:59 14:59 22:59 06:59 14:59 22:59 Output Total 500 ml 750 ml Balance -500 ml -750 ml Output Urine Total 500 ml 750 ml # Voids 3 4 # Bowel Movements 2 Result Diagram: 03/01/17 0741 03/01/17 0741 Objective Remarks GENERAL: This is a well-nourished, well-developed patient, lying in bed in no apparent distress. SKIN: No rashes, ecchymoses or lesions. Warm, mildly diaphoretic. HEAD: Atraumatic. Normocephalic. EYES: Extraocular motions intact. No scleral icterus. No injection or drainage. Visual [place] intact. ENT: Nose without bleeding, purulent drainage or septal hematoma. Uvula midline. Airway patent. NECK: Trachea midline. No JVD or lymphadenopathy. CARDIOVASCULAR: Regular rate and rhythm without murmurs, gallops, or rubs. RESPIRATORY: Clear to auscultation. Breath sounds equal bilaterally. No wheezes , rales, or rhonchi. GASTROINTESTINAL: Abdomen soft, non-tender, nondistended. No guarding. MUSCULOSKELETAL: Extremities without clubbing, cyanosis, or edema. NEUROLOGICAL: Awake and alert. Cranial nerves II through XII intact. Sensory grossly within normal limits bilaterally in arms and legs. Five out of 5 muscle strength on left side, 4/5 in right arm and leg. Normal speech. Medications and IVs Current Medications Medications (Trade) Dose Ordered Sig/Cady Route Start Time Stop Time Status Last Admin (Sinemet 25-100 Mg) 1 tab Q8HR PO 02/26/17 22:00 03/01/17 05:27 (Xalatan 0.005% Opth Soln) 1 drop HS EACH EYE 02/26/17 21:00 02/28/17 21:36 (Mirapex) 0.25 mg TID PO 02/26/17 18:00 03/01/17 09:55 (Lyrica) 100 mg BID PO 02/26/17 21:00 03/01/17 09:55 (Xarelto) 20 mg DAILY PO 02/27/17 09:00 03/01/17 09:56 (Tylenol) 650 mg Q4H PRN PO 02/26/17 15:45 (Zofran Inj) 4 mg Q6H PRN IVP 02/26/17 15:45 (Tylenol) 650 mg Q6H PRN PO 02/26/17 15:45 ([place] 10-325 Mg) 1 tab Q4H PRN PO 02/26/17 15:45 03/01/17 05:27 (Percocet 5-325 Mg) 1 tab Q6H PRN PO 02/26/17 15:45 02/28/17 13:50 (Hyun-Colace) 1 tab BID PO 02/26/17 21:00 02/27/17 21:55 (Milk Of Magnesia Liq) 30 ml Q12H PRN PO 02/26/17 15:45 (Senokot) 17.2 mg Q12H PRN PO 02/26/17 15:45 (Dulcolax Supp) 10 mg DAILY PRN RECTAL 02/26/17 15:45 (Lactulose Liq) 30 ml DAILY PRN PO 02/26/17 15:45 (Vasotec Inj) 1.25 mg Q4H PRN IV PUSH 02/26/17 15:45 (Alphagan 0.2% Opth Soln) 1 drop Q12HR EACH EYE 02/26/17 21:00 03/01/17 08:00 (Timoptic 0.5% Opth Soln) 1 drop Q12HR EACH EYE 02/26/17 21:00 03/01/17 08:00 (Ecotrin Ec) 81 mg DAILY PO 02/26/17 19:00 03/01/17 09:55 (NS Flush) 2 ml BID IV FLUSH 02/26/17 21:00 03/01/17 09:00 (NS Flush) 2 ml UNSCH PRN IV FLUSH 02/26/17 19:00 (NovoLOG SUPPLEMENTAL SCALE) 1 ACHS SQ 02/26/17 21:00 (D50w (Vial) Inj) 50 ml UNSCH PRN IV PUSH 02/26/17 19:00 (Glucagon Inj) 1 mg UNSCH PRN OTHER 02/26/17 19:00 (Vasotec Inj) 1.25 mg Q6H PRN IV PUSH 02/26/17 19:00 02/28/17 16:54 (Vasotec Inj) 1.25 mg Q6H PRN IV PUSH 02/27/17 00:00 (Lipitor) 10 mg DAILY PO 02/28/17 09:00 03/01/17 09:55 (Lasix) 40 mg DAILY@0900,1800 PO 02/28/17 09:00 03/01/17 09:59 (Zaroxolyn) 5 mg DAILY PO 02/28/17 09:00 03/01/17 09:55 (Toprol Xl) 50 mg DAILY PO 02/28/17 09:00 02/28/17 08:33 (Aldactone) 50 mg DAILY PO 02/28/17 09:00 03/01/17 09:55 (Nitrostat Sl) 0.4 mg Q5M PRN SL 02/28/17 10:45 (Morphine Inj) 2 mg Q30M PRN IV PUSH 02/28/17 10:45 A/P Assessment and Plan 66 year old male with a past history of Parkinsons, HTN, PE, CHF who presented to the ED due to right sided weakness. Right-sided weakness persisting. Past history of right-sided hemiplegia, reported to have had an episode similar to this a few years ago. PE workup negative. CVA workup unremarkable so far. Neurology following Discharge Planning CVA workup still in progress. Cardiology consulted 02/28 for chest tightness, abnormal EKG Problem List: (1) Chest tightness or pressure ICD Codes: R07.89 - Other chest pain Status: Acute Plan: New reports of chest tightness since early this morning. Hx CHF, HTN, sedentary. Chest pain is constant. Given CAD hx, workup initiated including stat EKG, which shows no evidence of ST changes but does show worsened AV conduction. PE workup negative on admission. * Troponins within normal limits * Chest x-ray with compensated cardiomegaly otherwise negative * Echocardiogram ordered 02/26 still pending * Cardiology consulted to assist in management, recommend cardiac stress test today * Follow-up cardiac stress test * Cont ASA, also on Plavix for hx DVT * Nitrate SL PRN, morphine if needed (2) Hemiplegia ICD Codes: G81.90 - Hemiplegia, unspecified affecting unspecified side Status: Acute Plan: Patient presented with right-sided cassi-plegia. No other focal neurological deficits noted. CT head without acute process, head MRA unremarkable, brain MRI unremarkable, neck MRA unremarkable. * Neurology consulted, appreciate recommendations * Follow-up MRI brain, MRI C-spine * Neuro checks every 4hr, no acute changes this admission * Telemetry * ACS ruled out on admission, troponin 0.02, 0.04, 0.05, no acute ischemic changes on EKG * 2-D echo pending * Came from [facility], will return Imaging: Brain MRI: Unremarkable. No evidence of acute ischemia Brain MRA: Unremarkable. No evidence for large vessel occlusion or significant intracranial stenosis Neck MRA: Unremarkable carotid exam. Head CT: No acute intracranial abnormality Carotid US: No hemodynamically significant stenosis (3) Back pain ICD Codes: M54.9 - Dorsalgia, unspecified Plan: Patient complains of back pain which he reports is similar to when he had a pulmonary embolism past. Well's score 4.5, Perc score 2 * Currently on Xarelto, ASA initiated * No signs or symptoms of DVT at this time Imaging: Chest CTA: No evidence of pulmonary embolism. 19mm right lower lobe nodule. Malignancy is not excluded. PET/CT scan is recommended for further evaluation, counseled patient about findings and need for outpt followup (4) Hypertension ICD Codes: I10 - Hypertension Status: Acute Plan: Chronic HTN.Home medications initially held for to allow for permissive hypertension * Continue home medications * Metoprolol 50 mg daily * Spironolactone 50 mg daily * Furosemide 40 mg twice a day * Metolazone 5 mg daily (5) Parkinson disease ICD Codes: G20 - Parkinson's disease Plan: History of Parkinson's * Continue carbidopa levodopa 25/100 mg every 8 hours- home medication (6) FEN Plan: Fluids * None, tolerating PO, will consider gentle IVF if indicated Electrolytes * Monitor and correct as needed Nutrition * Heart healthy diet Prophylaxis * Currently on Xarelto, SCDs * Zofran as needed Austen Wilson MD R1 Mar 01, 2017 11:28
[2017-03-01] MEDS ORDERED: GADODIAMIDE PF 287 MG/ML 20 ML VIAL (for RAD MRI) IVCONTRAST ONE (11:32)
--- NOTE | 2017-03-01 12:16 | EKG ---
Date Performed: 02/28/2017 Time Performed: 13:41:35 PTAGE: 66 years EKG: SINUS BRADYCARDIA LEFT ANTERIOR FASCICULAR BLOCK ABNORMAL ECG Compared to prior tracing no significant change PREVIOUS TRACING : 02/28/2017 09.37 DOCTOR: Keri Dey Interpretating Date/Time 03/01/2017 12:13:27
--- NOTE | 2017-03-01 12:16 | EKG ---
Date Performed: 02/28/2017 Time Performed: 19:10:31 PTAGE: 66 years EKG: SINUS BRADYCARDIA LEFT ANTERIOR FASCICULAR BLOCK ABNORMAL ECG Compared to prior tracing no significant change PREVIOUS TRACING : 02/28/2017 13.41 DOCTOR: Keri Dey Interpretating Date/Time 03/01/2017 12:13:35
[2017-03-01] MEDS ORDERED: REGADENOSON INJ 0.4 MG/5 ML SYR ONE (12:32)
--- NOTE | 2017-03-01 12:38 | ECHRPT ---
Indication: cva/tia CONCLUSIONS Normal left ventricular size. Mild concentric left ventricular hypertrophy. The left ventricular systolic function is normal with an estimated ejection fraction in the range of 55-60%. Mitral annular calcification is present. Trace mitral valve regurgitation. Trace aortic valve regurgitation. There is mild tricuspid valve regurgitation. There is estimated mild pulmonary hypertension present ( 45 mmHg). Trivial pulmonary valve regurgitation. There is a trivial pericardial effusion present. No hemodynamically significant echocardiographic features were observed (no pre-tamponade physiology). BP: 194 / 93 HR: 72 Rhythm: MEASUREMENTS (Male / Female) Normal Values Technical Quality: 2D ECHO LV Diastolic Diameter PLAX 5.3 cm 4.2 - 5.9 / 3.9 - 5.3 cm LV Systolic Diameter PLAX 4.1 cm IVS Diastolic Thickness 1.6 cm 0.6 - 1.0 / 0.6 - 0.9 cm LVPW Diastolic Thickness 1.4 cm 0.6 - 1.0 / 0.6 - 0.9 cm LV Relative Wall Thickness 0.6 RV Internal Dim ED PLAX 2.9 cm LA Systolic Diameter LX 4.3 cm 3.0 - 4.0 / 2.7 - 3.8 cm DOPPLER Mitral E Point Velocity 63.2 cm/s Mitral A Point Velocity 78.0 cm/s Mitral E to A Ratio 0.8 TR Peak Velocity 316.0 cm/s TR Peak Gradient 39.9 mmHg Right Atrial Pressure 5.0 mmHg Pulmonary Artery Systolic Pressu 44.9 mmHg Right Ventricular Systolic Press 44.9 mmHg FINDINGS LEFT VENTRICLE Normal left ventricular size. Mild concentric left ventricular hypertrophy. The left ventricular systolic function is normal with an estimated ejection fraction in the range of 55-60%. RIGHT VENTRICLE Normal right ventricular size and systolic function. LEFT ATRIUM The left atrial size is normal. RIGHT ATRIUM The right atrial size is normal. ATRIAL SEPTUM Normal atrial septal thickness without atrial level shunting by limited color doppler interrogation. AORTA The aortic root and proximal ascending aorta are normal in size on limited imaging. MITRAL VALVE Mitral annular calcification is present. Trace mitral valve regurgitation. AORTIC VALVE Trace aortic valve regurgitation. TRICUSPID VALVE There is mild tricuspid valve regurgitation. There is estimated mild pulmonary hypertension present ( 45 mmHg). PULMONARY VALVE Trivial pulmonary valve regurgitation. VESSELS The inferior vena cava is normal in size. PERICARDIUM There is a trivial pericardial effusion present. No hemodynamically significant echocardiographic features were observed (no pre-tamponade physiology). Issa Patel MD, FACC (Electronically Signed) Final Date:01 March 2017 12:37
--- NOTE | 2017-03-01 13:16 | RADRPT ---
EXAM DATE/TIME: 03/01/2017 11:04 [facility] COMPARISON: MRA CAROTIDS W CONTRAST, February 26, 2017, 16:02. INDICATIONS : CVA. CONTRAST: 20 cc Omniscan (gadodiamide) IV MEDICAL HISTORY : Hypertension. SURGICAL HISTORY : Inguinal hernia repair. Shoulder repair. ENCOUNTER: Initial ACUITY: 1 day PAIN SCORE: 0/10 LOCATION: Head. TECHNIQUE: Multiplanar, multisequence MRI of the brain was performed both prior to and following the administrat ion of paramagnetic contrast. FINDINGS: CEREBRUM: The ventricles are normal for age. No evidence of midline shift, mass lesion, hemorrhage or acute in farction. No extraaxial fluid collections are seen. The pituitary gland and suprasellar cistern are normal in configuration. WHITE MATTER: No significant signal abnormalities are seen in the white matter. POSTERIOR FOSSA: The cerebellum and brainstem are intact. The 4th ventricle is midline. The cerebellopontine angle is unremarkable. The cerebellar tonsils are normal in position. DIFFUSION IMAGING: No focal areas of restricted diffusion are seen. No evidence of acute infarction. EXTRACRANIAL: The visualized portions of the orbits and paranasal sinuses are unremarkable. POST-CONTRAST: No abnormal areas of parenchymal or dural enhancement. No evidence of blood-brain barrier breakdown. CONCLUSION: 1. Negative examination. Austyn Valero MD on March 01, 2017 at 13:10 Board Certified Radiologist. This report was verified electronically.
--- NOTE | 2017-03-01 13:23 | RADRPT ---
EXAM DATE/TIME: 03/01/2017 11:04 [facility] COMPARISON: MRA CAROTIDS W CONTRAST, February 26, 2017, 16:02. INDICATIONS : Myelopathy. MEDICAL HISTORY : Hypertension. SURGICAL HISTORY : Inguinal hernia repair. Right shoulder. ENCOUNTER: Initial ACUITY: 1 day PAIN SCORE: 0/10 LOCATION: Neck. TECHNIQUE: Multiplanar, multisequence MRI examination of the cervical spine was performed. FINDINGS: VERTEBRAE: Normal vertebral body height. Homogeneous marrow signal. ALIGNMENT: No evidence of subluxation. CORD: Normal configuration and signal. POST FOSSA: The cerebellar tonsils are normal in position. C2-C3: The thecal sac has a normal configuration. There is no evidence of disc herniation or spinal canal s tenosis. The neural foramina are patent bilaterally. C3-C4: The thecal sac has a normal configuration. There is no evidence of disc herniation or spinal canal s tenosis. The neural foramina are patent bilaterally. There is mild facet arthritis bilaterally. C4-C5: The thecal sac has a normal configuration. There is no evidence of disc herniation or spinal canal s tenosis. The neural foramina are patent bilaterally. There is mild facet arthritis bilaterally. C5-C6: The thecal sac has a normal configuration. There is no evidence of disc herniation or spinal canal s tenosis. The neural foramina are patent bilaterally. There is mild facet arthritis bilaterally. C6-C7: There is a degenerated disc with a small broad-based disc bulge. The thecal space and foramina are ad equate. There is mild facet arthritis bilaterally. C7-T1: There is minimal disc bulge. The thecal space and foramina are adequate. There is mild facet arthriti s bilaterally. CONCLUSION: 1. Degenerative changes in the cervical spine as above. No significant neural foraminal stenosis or s fatuma stenosis identified. Austyn Valero MD on March 01, 2017 at 13:19 Board Certified Radiologist. This report was verified electronically.
--- NOTE | 2017-03-01 13:57 | PD.CARD.PN ---
Subjective Subjective Remarks No CP or SOB, c/o back pain Objective Medications Current Medications Medications (Trade) Dose Ordered Sig/Cady Route Start Time Stop Time Status Last Admin (Sinemet 25-100 Mg) 1 tab Q8HR PO 02/26/17 22:00 03/01/17 05:27 (Xalatan 0.005% Opth Soln) 1 drop HS EACH EYE 02/26/17 21:00 02/28/17 21:36 (Mirapex) 0.25 mg TID PO 02/26/17 18:00 03/01/17 09:55 (Lyrica) 100 mg BID PO 02/26/17 21:00 03/01/17 09:55 (Xarelto) 20 mg DAILY PO 02/27/17 09:00 03/01/17 09:56 (Tylenol) 650 mg Q4H PRN PO 02/26/17 15:45 (Zofran Inj) 4 mg Q6H PRN IVP 02/26/17 15:45 (Tylenol) 650 mg Q6H PRN PO 02/26/17 15:45 ([place] 10-325 Mg) 1 tab Q4H PRN PO 02/26/17 15:45 03/01/17 05:27 (Percocet 5-325 Mg) 1 tab Q6H PRN PO 02/26/17 15:45 02/28/17 13:50 (Hyun-Colace) 1 tab BID PO 02/26/17 21:00 02/27/17 21:55 (Milk Of Magnesia Liq) 30 ml Q12H PRN PO 02/26/17 15:45 (Senokot) 17.2 mg Q12H PRN PO 02/26/17 15:45 (Dulcolax Supp) 10 mg DAILY PRN RECTAL 02/26/17 15:45 (Lactulose Liq) 30 ml DAILY PRN PO 02/26/17 15:45 (Vasotec Inj) 1.25 mg Q4H PRN IV PUSH 02/26/17 15:45 (Alphagan 0.2% Opth Soln) 1 drop Q12HR EACH EYE 02/26/17 21:00 03/01/17 08:00 (Timoptic 0.5% Opth Soln) 1 drop Q12HR EACH EYE 02/26/17 21:00 03/01/17 08:00 (Ecotrin Ec) 81 mg DAILY PO 02/26/17 19:00 03/01/17 09:55 (NS Flush) 2 ml BID IV FLUSH 02/26/17 21:00 03/01/17 09:00 (NS Flush) 2 ml UNSCH PRN IV FLUSH 02/26/17 19:00 (NovoLOG SUPPLEMENTAL SCALE) 1 ACHS SQ 02/26/17 21:00 (D50w (Vial) Inj) 50 ml UNSCH PRN IV PUSH 02/26/17 19:00 (Glucagon Inj) 1 mg UNSCH PRN OTHER 02/26/17 19:00 (Vasotec Inj) 1.25 mg Q6H PRN IV PUSH 02/26/17 19:00 02/28/17 16:54 (Vasotec Inj) 1.25 mg Q6H PRN IV PUSH 02/27/17 00:00 (Lipitor) 10 mg DAILY PO 02/28/17 09:00 03/01/17 09:55 (Lasix) 40 mg DAILY@0900,1800 PO 02/28/17 09:00 03/01/17 09:59 (Zaroxolyn) 5 mg DAILY PO 02/28/17 09:00 03/01/17 09:55 (Toprol Xl) 50 mg DAILY PO 02/28/17 09:00 02/28/17 08:33 (Aldactone) 50 mg DAILY PO 02/28/17 09:00 03/01/17 09:55 (Nitrostat Sl) 0.4 mg Q5M PRN SL 02/28/17 10:45 (Morphine Inj) 2 mg Q30M PRN IV PUSH 02/28/17 10:45 Vital Signs / I&O Vital Signs Date Time Temp Pulse Resp B/P (MAP) Pulse Ox O2 Delivery O2 Flow Rate FiO2 03/01/17 10:37 97 21 03/01/17 10:20 57 03/01/17 07:45 97.9 58 19 188/83 (118) 95 03/01/17 05:23 98.7 58 18 166/80 (108) 96 03/01/17 00:06 98.3 56 18 183/91 (121) 97 03/01/17 00:00 61 02/28/17 20:40 98.6 56 18 182/84 (116) 98 02/28/17 16:00 99.1 59 20 187/86 (119) 96 I/O 02/28/17 02/28/17 02/28/17 03/01/17 03/01/17 03/01/17 06:59 14:59 22:59 06:59 14:59 22:59 Output Total 500 ml 750 ml Balance -500 ml -750 ml Output Urine Total 500 ml 750 ml # Voids 3 4 # Bowel Movements 2 Physical Exam GENERAL: In NAD. SKIN: Warm and dry. HEAD: Normocephalic. EYES: No scleral icterus. No injection or drainage. NECK: Supple, trachea midline. No JVD or lymphadenopathy. CARDIOVASCULAR: Regular rate and rhythm without murmurs, gallops, or rubs. RESPIRATORY: Breath sounds equal bilaterally. No accessory muscle use. GASTROINTESTINAL: Abdomen soft, non-tender, nondistended. MUSCULOSKELETAL: No cyanosis, or edema. Laboratory Laboratory Tests Test 02/28/17 15:00 02/28/17 19:35 03/01/17 07:41 Troponin I 0.04 NG/ML 0.04 NG/ML Total Creatine Kinase 378 U/L Creatine Kinase MB 3.1 NG/ML Creatine Kinase MB % 0.8 % C-Reactive Protein 0.30 MG/DL White Blood Count 6.8 TH/MM3 Red Blood Count 4.18 MIL/MM3 Hemoglobin 12.9 GM/DL Hematocrit 37.2 % Mean Corpuscular Volume 88.9 FL Mean Corpuscular Hemoglobin 30.7 PG Mean Corpuscular Hemoglobin Concent 34.6 % Red Cell Distribution Width 12.5 % Platelet Count 215 TH/MM3 Mean Platelet Volume 8.3 FL Neutrophils (%) (Auto) 66.6 % Lymphocytes (%) (Auto) 16.4 % Monocytes (%) (Auto) 13.5 % Eosinophils (%) (Auto) 3.0 % Basophils (%) (Auto) 0.5 % Neutrophils # (Auto) 4.5 TH/MM3 Lymphocytes # (Auto) 1.1 TH/MM3 Monocytes # (Auto) 0.9 TH/MM3 Eosinophils # (Auto) 0.2 TH/MM3 Basophils # (Auto) 0.0 TH/MM3 CBC Comment DIFF FINAL Differential Comment Blood Urea Nitrogen 15 MG/DL Creatinine 1.05 MG/DL Random Glucose 86 MG/DL Calcium Level 8.4 MG/DL Magnesium Level 2.0 MG/DL Sodium Level 139 MEQ/L Potassium Level 3.1 MEQ/L Chloride Level 105 MEQ/L Carbon Dioxide Level 27.3 MEQ/L Anion Gap 7 MEQ/L Estimat Glomerular Filtration Rate 71 ML/MIN Imaging Last 24 hours Impressions Cervical Spine MRI 03/01/17 0000 Signed Impressions: Service Date/Time: February 11:04 - CONCLUSION: 1. Degenerative changes in the cervical spine as above. No significant neural foraminal stenosis or spinal stenosis identified. Austyn Valero MD Brain MRI 03/01/17 0000 Signed Impressions: Service Date/Time: February 11:04 - CONCLUSION: 1. Negative examination. Austyn Valero MD Assessment and Plan Problem List: (1) Angina at rest ICD Codes: I20.8 - Other forms of angina pectoris (2) TIA (transient ischemic attack) ICD Codes: G45.9 - Transient cerebral ischemic attack, unspecified (3) Hypertension, benign ICD Codes: I10 - Benign hypertension Status: Acute Assessment and Plan Continue current program. Proceed with adenosine nuclear stress test to evaluate for significant ischemia. Recommend aggressive risk factor modification. Neurology eval in progress. Chato Bermudez MD Mar 01, 2017 13:57
--- NOTE | 2017-03-01 14:55 | RADRPT ---
EXAM DATE/TIME: 03/01/2017 12:08 [place] COMPARISON: No previous studies available for comparison. INDICATIONS : Chest pain with TIA. Angina. DOSE: 26.1 mCi Tc99m Myoview at stress. 8.5 mCi Tc99m Myoview at rest. 0.4 mg Lexiscan STRESS SYMPTOMS: Shortness of breath. EJECTION FRACTION: 50% MEDICAL HISTORY : Hypertension. Congestive heart failure. Benign prostatic hyperplasia, (BPH) SURGICAL HISTORY : Rotator cuff, right. ENCOUNTER: Initial ACUITY: 2 days PAIN SCALE: 0/10 LOCATION: Substernal chest TECHNIQUE: The patient underwent pharmacologic stress with infusion of prescribed dose. Continuous ECG tracing was monitored during stress. Gated SPECT imaging was performed after stress and conventional SPECT i maging was performed at rest. The examination was performed on a SPECT/CT scanner, both attenuation and non-corrected datasets were reviewed. FINDINGS: DISTRIBUTION: The maximum perfused segment at stress is in the anterior wall. PERFUSION STUDY: The pattern of perfusion at stress is within normal limits. GATED STUDY: There is intact wall motion and thickening without hypokinetic or dyskinetic segments. CONCLUSION: No evidence of fixed or reversible perfusion abnormalities. Normal wall motion and ejection fraction. RISK CATEGORY: Low (<1% Annual Mortality Rate) Daryl Benitez MD on March 01, 2017 at 14:53 Board Certified Radiologist. This report was verified electronically.
[2017-03-01] MEDS: ENALAPRILAT 1.25 MG/ML VIAL IV PUSH PRN (15:16)
[2017-03-01 16:23] LABS: BICARBONATE 28.5 MEQ/L (21.0-32.0); POTASSIUM 3.4 MEQ/L (3.5-5.1)
[2017-03-01] MEDS: LATANOPROST 0.005% OPHT SOLN 2.5 ML BTL EACH EYE SCH (21:31)
[2017-03-02] VITALS (8 sets, daily range): BP systolic 110–180; BP diastolic 63–92; PULSE 55–68; RESP 16–20; TEMP 97.3–98.7; O2SAT 96–98
[2017-03-02] MEDS: CARBIDOPA/LEVODOPA 25 MG/100 MG TAB PO SCH ×3 (06:18→20:40)
[2017-03-02] MEDS: ACETAMINOPHEN/HYDROcodone 325 MG/10 MG TAB PO PRN ×3 (06:19→16:54)
[2017-03-02] MEDS ORDERED: POTASSIUM CHLORIDE 10 MEQ CONTROLLED RELEASE TAB PO ONE ×2 (07:15→11:15)
[2017-03-02 07:21] LABS: HEMATOCRIT 41.8 % (39.0-51.0); MEAN CELL VOLUME 88.5 FL (80.0-100.0); MEAN CORPUSCULAR HEMOGLOBIN 30.8 PG (27.0-34.0); MEAN CORPUSCULAR HGB CONC 34.8 % (32.0-36.0); PLATELET COUNT 239 TH/MM3 (150-450); RED BLOOD COUNT 4.72 MIL/MM3 (4.50-5.90); RED CELL DISTRIBUTION WIDTH 12.8 % (11.6-17.2); REVIEW FLAG FINAL; WHITE BLOOD COUNT 7.3 TH/MM3 (4.0-11.0)
[2017-03-02 07:52] LABS: POTASSIUM 3.1 MEQ/L (3.5-5.1)
[2017-03-02 07:53] LABS: BICARBONATE 28.9 MEQ/L (21.0-32.0)
[2017-03-02] MEDS: INSULIN ASPART SUPPLEMENTAL SCALE SQ SCH (08:00)
[2017-03-02] MEDS: METOPROLOL SUCCINATE 50 MG EXTENDED RELEASE TAB PO SCH (08:10)
[2017-03-02] MEDS: SPIRONOLACTONE 50 MG TAB PO SCH (08:19)
[2017-03-02] MEDS: PREGABALIN 100 MG CAP PO SCH ×2 (08:19→20:39)
[2017-03-02] MEDS: PRAMIPEXOLE DIHYDROCHLORIDE 0.25 MG TAB PO SCH ×3 (08:19→16:54)
[2017-03-02] MEDS: RIVAROXABAN 20 MG TAB PO SCH (08:19)
[2017-03-02] MEDS: DOCUSATE SODIUM 50 MG/SENNA 8.6 MG TAB PO SCH ×2 (08:19→20:39)
[2017-03-02] MEDS: ATORVASTATIN 10 MG TAB PO SCH (08:19)
[2017-03-02] MEDS: SODIUM CHLORIDE 0.9% FLUSH 5 ML FLUSH IV FLUSH SCH ×2 (08:19→20:41)
[2017-03-02] MEDS: ASPIRIN EC 81 MG TABEC PO SCH (08:19)
[2017-03-02] MEDS: METOLAZONE 5 MG TAB PO SCH (08:20)
[2017-03-02] MEDS: TIMOLOL MALEATE 0.5% OPHT SOLN 5 ML BTL EACH EYE SCH ×2 (08:20→20:41)
[2017-03-02] MEDS: BRIMONIDINE TARTRATE 0.2% OPHT SOLN 5 ML BTL EACH EYE SCH ×2 (08:20→20:40)
[2017-03-02] MEDS: FUROSEMIDE 40 MG TAB PO SCH ×2 (08:22→16:54)
--- NOTE | 2017-03-02 09:29 | HHI.FPPN ---
Subjective Remarks Patient seen and examined this morning. No acute events overnight. Patient reports feeling the same today. Right-sided weakness still present. No nausea, vomiting, fever, chills, shortness of breath, chest pain, abdominal pain, palpitations. Objective Vitals Vital Signs Date Time Temp Pulse Resp B/P (MAP) Pulse Ox O2 Delivery O2 Flow Rate FiO2 03/02/17 05:00 97.6 68 20 135/74 (94) 97 03/02/17 00:15 98.1 67 18 140/84 (102) 96 03/01/17 21:00 98.7 65 16 144/83 (103) 95 03/01/17 20:00 67 03/01/17 19:33 95 03/01/17 16:52 64 164/84 (110) 03/01/17 16:01 98.5 63 20 197/103 (134) 98 03/01/17 10:37 97 21 03/01/17 10:20 57 I/O 03/01/17 03/01/17 03/01/17 03/02/17 03/02/17 03/02/17 07:00 15:00 23:00 07:00 15:00 23:00 Intake Total 850 ml 675 ml Output Total 1000 ml 1575 ml Balance -150 ml -900 ml Intake Oral 850 ml 675 ml Output Urine Total 1000 ml 1575 ml # Voids 4 # Bowel Movements 0 0 Result Diagram: 03/02/17 0602 03/02/17 0611 Objective Remarks GENERAL: This is a well-nourished, well-developed patient, lying in bed in no apparent distress. SKIN: No rashes, ecchymoses or lesions. Warm, mildly diaphoretic. HEAD: Atraumatic. Normocephalic. EYES: Extraocular motions intact. No scleral icterus. No injection or drainage. Visual [place] intact. ENT: Nose without bleeding, purulent drainage or septal hematoma. Uvula midline. Airway patent. NECK: Trachea midline. No JVD or lymphadenopathy. CARDIOVASCULAR: Regular rate and rhythm without murmurs, gallops, or rubs. RESPIRATORY: Clear to auscultation. Breath sounds equal bilaterally. No wheezes , rales, or rhonchi. GASTROINTESTINAL: Abdomen soft, non-tender, nondistended. No guarding. MUSCULOSKELETAL: Extremities without clubbing, cyanosis, or edema. NEUROLOGICAL: Awake and alert. Cranial nerves II through XII intact. Sensory grossly within normal limits bilaterally in arms and legs. Five out of 5 muscle strength on left side, 4/5 in right arm and leg, possibly mildly improved today. Normal speech. Medications and IVs Last 48 hours Impressions Myocardial Perfusion Scan Nuc Med 03/01/17 0000 Signed Impressions: Service Date/Time: February 12:08 - CONCLUSION: No evidence of fixed or reversible perfusion abnormalities. Normal wall motion and ejection fraction. RISK CATEGORY: Low (<1%% Annual Mortality Rate) Daryl Benitez MD Cervical Spine MRI 03/01/17 Signed Impressions: Service Date/Time: , March 01, 2017 11:04 - CONCLUSION: 1. Degenerative changes in the cervical spine as above. No significant neural foraminal stenosis or spinal stenosis identified. Austyn Valero MD Brain MRI 03/01/17 Signed Impressions: Service Date/Time: February 11:04 - CONCLUSION: 1. Negative examination. Austyn Valero MD A/P Assessment and Plan 66 year old male with a past history of Parkinsons, HTN, PE, CHF who presented to the ED due to right sided weakness. Right-sided weakness persisting. Past history of right-sided hemiplegia, reported to have had an episode similar to this a few years ago. PE workup negative. CVA workup unremarkable so far. Neurology following Discharge Planning Pending Neurology discharge Problem List: (1) Chest tightness or pressure ICD Codes: R07.89 - Other chest pain Status: Acute Plan: New reports of chest tightness since early this morning. Hx CHF, HTN, sedentary. Chest pain is constant. Given CAD hx, workup initiated including stat EKG, which shows no evidence of ST changes but does show worsened AV conduction. PE workup negative on admission. * Troponins within normal limits * Chest x-ray with compensated cardiomegaly otherwise negative * Echocardiogram ordered 02/26 EF 55-60% * Cardiology consulted to assist in management, cardiac stress test within normal limits * Cont ASA, also on Plavix for hx DVT * Nitrate SL PRN, morphine if needed (2) Hemiplegia ICD Codes: G81.90 - Hemiplegia, unspecified affecting unspecified side Status: Acute Plan: Patient presented with right-sided cassi-plegia. No other focal neurological deficits noted. CT head without acute process, head MRA unremarkable, brain MRI unremarkable, neck MRA unremarkable. * Neurology consulted, appreciate recommendations * MRI brain, C-spine noted above. Unremarkable for acute process * Neuro checks every 4hr, no acute changes this admission * Telemetry * ACS ruled out on admission, troponin 0.02, 0.04, 0.05, no acute ischemic changes on EKG * 2-D echo EF 55-60% * Came from [facility], will return Imaging: Brain MRI: Unremarkable. No evidence of acute ischemia Brain MRA: Unremarkable. No evidence for large vessel occlusion or significant intracranial stenosis Neck MRA: Unremarkable carotid exam. Head CT: No acute intracranial abnormality Carotid US: No hemodynamically significant stenosis (3) Back pain ICD Codes: M54.9 - Dorsalgia, unspecified Plan: Patient complains of back pain which he reports is similar to when he had a pulmonary embolism past. Well's score 4.5, Perc score 2 * Currently on Xarelto, ASA initiated * No signs or symptoms of DVT at this time * CTA without sign of pulmonary embolism Imaging: Chest CTA: No evidence of pulmonary embolism. 19mm right lower lobe nodule. Malignancy is not excluded. PET/CT scan is recommended for further evaluation, counseled patient about findings and need for outpt followup (4) Hypertension ICD Codes: I10 - Hypertension Status: Acute Plan: Chronic HTN.Home medications initially held for to allow for permissive hypertension * Continue home medications * Metoprolol 50 mg daily * Spironolactone 50 mg daily * Furosemide 40 mg twice a day * Metolazone 5 mg daily (5) Parkinson disease ICD Codes: G20 - Parkinson's disease Plan: History of Parkinson's * Continue carbidopa levodopa 25/100 mg every 8 hours- home medication (6) FEN Plan: Fluids * None, tolerating PO, will consider gentle IVF if indicated Electrolytes * Monitor and correct as needed Nutrition * Heart healthy diet Prophylaxis * Currently on Xarelto, SCDs * Zofran as needed Austen Wilson MD R1 Mar 02, 2017 09:29
[2017-03-02] MEDS ORDERED: SODIUM CHLORID 0.9% 500 ML INJ 500 ML IV ONE (11:15)
[2017-03-02] MEDS ORDERED: cloNIDine HCL 0.1 MG TAB PO ONE (11:45)
--- NOTE | 2017-03-02 11:50 | HHI.PR ---
Addendum to Inpatient Note Addendum Reason: Additional Documentation Additional Information Residents paged regarding patient's report of right-sided numbness. He states this is recurrent from admission. He thinks he may also have weakness. He now reports new onset chest pressure. O CV and Lung exam normal. Neurol exam reveals unchanged 4/5 strength in the right extremities, 5/5 in the left extremities. police officer intact. A/P 66M presenting with neurological symptoms, unclear etiology given multiple imaging studies including MRI brain x 2 negative Mild hypoK, not likely causative Telemetry unremarkable He does have ARNOLD, likely related to contrast and PO poor IV bolus of 500cc ordered this morning, still pending administration HTN with SBP 180s noted on VS now per tech, will give clonidine 0.1mg x 1 ( metoprolol was held this AM by nurse given bradycardia and given ARNOLD will hold Vasotec) Stat EKG, will add troponin trending if indicated by abnormal EKG Once ARNOLD resolved, resume Vasotec for PRN HTN Possibly somatization, will consult with Neurology and consider Psychiatry consult Candelaria Rose MD R2 Mar 02, 2017 11:49
[2017-03-02 14:29] LABS: POTASSIUM 3.9 MEQ/L (3.5-5.1)
--- NOTE | 2017-03-02 15:47 | EKG ---
Date Performed: 03/02/2017 Time Performed: 11:57:11 PTAGE: 66 years EKG: SINUS BRADYCARDIA WITH OCCASIONAL PREMATURE COMPLEXES LEFT ANTERIOR FASCICULAR BLOCK ABNORM AL ECG PREVIOUS TRACING : 02/28/2017 19.10 No significant change from prior electrocardiogram. DOCTOR: Tyrone Strickland Interpretating Date/Time 03/02/2017 15:45:16
--- NOTE | 2017-03-02 15:59 | PD.CARD.PN ---
Subjective Subjective Remarks No CP or SOB, nuc ST yest unremarkable Objective Medications Current Medications Medications (Trade) Dose Ordered Sig/Cady Route Start Time Stop Time Status Last Admin (Sinemet 25-100 Mg) 1 tab Q8HR PO 02/26/17 22:00 03/02/17 13:00 (Xalatan 0.005% Opth Soln) 1 drop HS EACH EYE 02/26/17 21:00 03/01/17 21:31 (Mirapex) 0.25 mg TID PO 02/26/17 18:00 03/02/17 11:39 (Lyrica) 100 mg BID PO 02/26/17 21:00 03/02/17 08:19 (Xarelto) 20 mg DAILY PO 02/27/17 09:00 03/02/17 08:19 (Tylenol) 650 mg Q4H PRN PO 02/26/17 15:45 (Zofran Inj) 4 mg Q6H PRN IVP 02/26/17 15:45 03/02/17 11:49 (Tylenol) 650 mg Q6H PRN PO 02/26/17 15:45 ([place] 10-325 Mg) 1 tab Q4H PRN PO 02/26/17 15:45 03/02/17 11:39 (Percocet 5-325 Mg) 1 tab Q6H PRN PO 02/26/17 15:45 02/28/17 13:50 (Hyun-Colace) 1 tab BID PO 02/26/17 21:00 03/02/17 08:19 (Milk Of Magnesia Liq) 30 ml Q12H PRN PO 02/26/17 15:45 (Senokot) 17.2 mg Q12H PRN PO 02/26/17 15:45 (Dulcolax Supp) 10 mg DAILY PRN RECTAL 02/26/17 15:45 (Lactulose Liq) 30 ml DAILY PRN PO 02/26/17 15:45 (Alphagan 0.2% Opth Soln) 1 drop Q12HR EACH EYE 02/26/17 21:00 03/02/17 08:20 (Timoptic 0.5% Opth Soln) 1 drop Q12HR EACH EYE 02/26/17 21:00 03/02/17 08:20 (Ecotrin Ec) 81 mg DAILY PO 02/26/17 19:00 03/02/17 08:19 (NS Flush) 2 ml BID IV FLUSH 02/26/17 21:00 03/02/17 08:19 (NS Flush) 2 ml UNSCH PRN IV FLUSH 02/26/17 19:00 (Vasotec Inj) 1.25 mg Q6H PRN IV PUSH 02/26/17 19:00 Future Hold 03/01/17 15:16 (Lipitor) 10 mg DAILY PO 02/28/17 09:00 03/02/17 08:19 (Lasix) 40 mg DAILY@0900,1800 PO 02/28/17 09:00 03/02/17 08:22 (Zaroxolyn) 5 mg DAILY PO 02/28/17 09:00 03/02/17 08:20 (Toprol Xl) 50 mg DAILY PO 02/28/17 09:00 02/28/17 08:33 (Aldactone) 50 mg DAILY PO 02/28/17 09:00 03/02/17 08:19 (Nitrostat Sl) 0.4 mg Q5M PRN SL 02/28/17 10:45 (Morphine Inj) 2 mg Q30M PRN IV PUSH 02/28/17 10:45 Vital Signs / I&O Vital Signs Date Time Temp Pulse Resp B/P (MAP) Pulse Ox O2 Delivery O2 Flow Rate FiO2 03/02/17 12:00 98.7 56 16 180/92 (121) 96 03/02/17 10:11 55 03/02/17 08:00 97.3 61 16 134/79 (97) 96 03/02/17 05:00 97.6 68 20 135/74 (94) 97 03/02/17 00:15 98.1 67 18 140/84 (102) 96 03/01/17 21:00 98.7 65 16 144/83 (103) 95 03/01/17 20:00 67 03/01/17 19:33 95 03/01/17 16:52 64 164/84 (110) 03/01/17 16:01 98.5 63 20 197/103 (134) 98 I/O 03/01/17 03/01/17 03/01/17 03/02/17 03/02/17 03/02/17 07:00 15:00 23:00 07:00 15:00 23:00 Intake Total 850 ml 675 ml 500 ml Output Total 1000 ml 1575 ml 450 ml Balance -150 ml -900 ml 50 ml Intake Oral 850 ml 675 ml IV Total 500 ml Output Urine Total 1000 ml 1575 ml 450 ml # Voids 4 # Bowel Movements 0 0 Physical Exam GENERAL: In NAD. SKIN: Warm and dry. HEAD: Normocephalic. EYES: No scleral icterus. No injection or drainage. NECK: Supple, trachea midline. No JVD or lymphadenopathy. CARDIOVASCULAR: Regular rate and rhythm without murmurs, gallops, or rubs. RESPIRATORY: Breath sounds equal bilaterally. No accessory muscle use. GASTROINTESTINAL: Abdomen soft, non-tender, nondistended. MUSCULOSKELETAL: No cyanosis, or edema. Laboratory Laboratory Tests Test 03/02/17 06:02 03/02/17 06:11 03/02/17 13:15 White Blood Count 7.3 TH/MM3 Red Blood Count 4.72 MIL/MM3 Hemoglobin 14.5 GM/DL Hematocrit 41.8 % Mean Corpuscular Volume 88.5 FL Mean Corpuscular Hemoglobin 30.8 PG Mean Corpuscular Hemoglobin Concent 34.8 % Red Cell Distribution Width 12.8 % Platelet Count 239 TH/MM3 Mean Platelet Volume 8.5 FL Blood Urea Nitrogen 31 MG/DL 29 MG/DL Creatinine 1.49 MG/DL 1.45 MG/DL Random Glucose 92 MG/DL 101 MG/DL Calcium Level 9.3 MG/DL 9.5 MG/DL Sodium Level 140 MEQ/L 140 MEQ/L Potassium Level 3.1 MEQ/L 3.9 MEQ/L Chloride Level 104 MEQ/L 103 MEQ/L Carbon Dioxide Level 28.9 MEQ/L 29.0 MEQ/L Anion Gap 7 MEQ/L 8 MEQ/L Estimat Glomerular Filtration Rate 47 ML/MIN 49 ML/MIN Assessment and Plan Problem List: (1) Angina at rest ICD Codes: I20.8 - Other forms of angina pectoris (2) TIA (transient ischemic attack) ICD Codes: G45.9 - Transient cerebral ischemic attack, unspecified (3) Hypertension, benign ICD Codes: I10 - Benign hypertension Status: Acute Assessment and Plan Continue current program. Adenosine nuclear stress test with no evidence of significant ischemia. CP is likely of noncardiac origin, pt reassured. Recommend aggressive risk factor modification. Neurology evaluation in progress. Increase activity. Chato Bermudez MD Mar 02, 2017 15:59
--- NOTE | 2017-03-02 19:41 | HHI.PR ---
Review/Management Diagnosis subjective right sided weakness and paresthesias with no objective findings-- consider possible psychogenic etiology--? conversion Plan consider psychiatry consult No additional neurologic work up indicated Diagnosis/Plan: Subjective Subjective Comments No acute events reported He still states he is weak and numb in the right arm and leg Active Medications Current Medications Medications (Trade) Dose Ordered Sig/Cady Route Start Time Stop Time Status Last Admin (Sinemet 25-100 Mg) 1 tab Q8HR PO 02/26/17 22:00 03/02/17 13:00 (Xalatan 0.005% Opth Soln) 1 drop HS EACH EYE 02/26/17 21:00 03/01/17 21:31 (Mirapex) 0.25 mg TID PO 02/26/17 18:00 03/02/17 16:54 (Lyrica) 100 mg BID PO 02/26/17 21:00 03/02/17 08:19 (Xarelto) 20 mg DAILY PO 02/27/17 09:00 03/02/17 08:19 (Tylenol) 650 mg Q4H PRN PO 02/26/17 15:45 (Zofran Inj) 4 mg Q6H PRN IVP 02/26/17 15:45 03/02/17 11:49 (Tylenol) 650 mg Q6H PRN PO 02/26/17 15:45 ([place] 10-325 Mg) 1 tab Q4H PRN PO 02/26/17 15:45 03/02/17 16:54 (Percocet 5-325 Mg) 1 tab Q6H PRN PO 02/26/17 15:45 02/28/17 13:50 (Hyun-Colace) 1 tab BID PO 02/26/17 21:00 03/02/17 08:19 (Milk Of Magnesia Liq) 30 ml Q12H PRN PO 02/26/17 15:45 (Senokot) 17.2 mg Q12H PRN PO 02/26/17 15:45 (Dulcolax Supp) 10 mg DAILY PRN RECTAL 02/26/17 15:45 (Lactulose Liq) 30 ml DAILY PRN PO 02/26/17 15:45 (Alphagan 0.2% Opth Soln) 1 drop Q12HR EACH EYE 02/26/17 21:00 03/02/17 08:20 (Timoptic 0.5% Opth Soln) 1 drop Q12HR EACH EYE 02/26/17 21:00 03/02/17 08:20 (Ecotrin Ec) 81 mg DAILY PO 02/26/17 19:00 03/02/17 08:19 (NS Flush) 2 ml BID IV FLUSH 02/26/17 21:00 03/02/17 08:19 (NS Flush) 2 ml UNSCH PRN IV FLUSH 02/26/17 19:00 (Vasotec Inj) 1.25 mg Q6H PRN IV PUSH 02/26/17 19:00 Future Hold 03/01/17 15:16 (Lipitor) 10 mg DAILY PO 02/28/17 09:00 03/02/17 08:19 (Lasix) 40 mg DAILY@0900,1800 PO 02/28/17 09:00 03/02/17 16:54 (Zaroxolyn) 5 mg DAILY PO 02/28/17 09:00 03/02/17 08:20 (Toprol Xl) 50 mg DAILY PO 02/28/17 09:00 02/28/17 08:33 (Aldactone) 50 mg DAILY PO 02/28/17 09:00 03/02/17 08:19 (Nitrostat Sl) 0.4 mg Q5M PRN SL 02/28/17 10:45 (Morphine Inj) 2 mg Q30M PRN IV PUSH 02/28/17 10:45 (Carafate Liq) 1 gm ACHS PO 03/02/17 21:00 Allergies Allergies Coded Allergies gabapentin (Unverified Allergy, Severe, TACHYCARDIA, 01/02/17) Exam I&O / VS 03/02/17 03/02/17 03/03/17 15:00 23:00 07:00 Intake Total 500 ml Output Total 450 ml Balance 50 ml IV Total 500 ml Output Urine Total 450 ml Vital Signs Date Time Temp Pulse Resp B/P (MAP) Pulse Ox O2 Delivery O2 Flow Rate FiO2 03/02/17 16:00 98.4 58 16 110/63 (79) 97 03/02/17 12:00 98.7 56 16 180/92 (121) 96 03/02/17 10:11 55 03/02/17 08:00 97.3 61 16 134/79 (97) 96 10/13/17 05:00 97.6 68 20 135/74 (94) 97 03/02/17 00:15 98.1 67 18 140/84 (102) 96 03/01/17 21:00 98.7 65 16 144/83 (103) 95 03/01/17 20:00 67 Exam Comments alert, speech normal CN intact MOTOR 5/5 RUE and 5/5 RLE, 5/5 left--I do not find objective weakness on exam Objective Radiology Results Repeat MRI brain is normal with no sign of infarction MRI cervical spine--mild spondylosis without significant stenosis. Spinal cord is normal Micro and Labs Laboratory Tests Test 03/02/17 06:02 03/02/17 06:11 03/02/17 13:15 White Blood Count 7.3 Red Blood Count 4.72 Hemoglobin 14.5 Hematocrit 41.8 Mean Corpuscular Volume 88.5 Mean Corpuscular Hemoglobin 30.8 Mean Corpuscular Hemoglobin Concent 34.8 Red Cell Distribution Width 12.8 Platelet Count 239 Mean Platelet Volume 8.5 Blood Urea Nitrogen 31 29 Creatinine 1.49 1.45 Random Glucose 92 101 Calcium Level 9.3 9.5 Sodium Level 140 140 Potassium Level 3.1 3.9 Chloride Level 104 103 Carbon Dioxide Level 28.9 29.0 Anion Gap 7 8 Estimat Glomerular Filtration Rate 47 49 Florian Bess. PhD MD Mar 02, 2017 19:41
[2017-03-02] MEDS: SUCRALFATE 1 GM/10 ML CUP PO SCH (20:39)
[2017-03-02] MEDS: oxyCODONE/ACETAMINOPHEN 5 MG/325 MG TAB PO PRN (20:40)
[2017-03-02] MEDS: LATANOPROST 0.005% OPHT SOLN 2.5 ML BTL EACH EYE SCH (20:41)
[2017-03-03 00:40] VITALS: BP 150/75; PULSE 69; RESP 19; TEMP 98.1; O2SAT 98
[2017-03-03 05:15] VITALS: BP 145/84; PULSE 64; RESP 20; TEMP 97.6; O2SAT 97
[2017-03-03] MEDS: CARBIDOPA/LEVODOPA 25 MG/100 MG TAB PO SCH ×3 (06:21→21:07)
[2017-03-03] MEDS: SUCRALFATE 1 GM/10 ML CUP PO SCH ×4 (06:21→21:08)
[2017-03-03 08:00] VITALS: BP 115/77; PULSE 61; PULSE 68; RESP 18; TEMP 98.7; O2SAT 96
[2017-03-03] MEDS: SODIUM CHLORIDE 0.9% FLUSH 5 ML FLUSH IV FLUSH SCH ×2 (09:00→21:10)
[2017-03-03] MEDS: FUROSEMIDE 40 MG TAB PO SCH ×2 (09:00→17:51)
[2017-03-03] MEDS: PREGABALIN 100 MG CAP PO SCH ×2 (11:26→21:07)
[2017-03-03] MEDS: SPIRONOLACTONE 50 MG TAB PO SCH (11:26)
[2017-03-03] MEDS: DOCUSATE SODIUM 50 MG/SENNA 8.6 MG TAB PO SCH ×2 (11:27→21:07)
[2017-03-03] MEDS: ASPIRIN EC 81 MG TABEC PO SCH (11:27)
[2017-03-03] MEDS: METOLAZONE 5 MG TAB PO SCH (11:27)
[2017-03-03] MEDS: PRAMIPEXOLE DIHYDROCHLORIDE 0.25 MG TAB PO SCH ×3 (11:27→17:51)
[2017-03-03] MEDS: RIVAROXABAN 20 MG TAB PO SCH (11:27)
[2017-03-03] MEDS: METOPROLOL SUCCINATE 50 MG EXTENDED RELEASE TAB PO SCH (11:27)
[2017-03-03] MEDS: ATORVASTATIN 10 MG TAB PO SCH (11:28)
[2017-03-03] MEDS: TIMOLOL MALEATE 0.5% OPHT SOLN 5 ML BTL EACH EYE SCH ×2 (11:30→21:09)
[2017-03-03] MEDS: BRIMONIDINE TARTRATE 0.2% OPHT SOLN 5 ML BTL EACH EYE SCH ×2 (11:30→21:08)
[2017-03-03] MEDS: ACETAMINOPHEN/HYDROcodone 325 MG/10 MG TAB PO PRN ×3 (11:51→21:00)
[2017-03-03 12:00] VITALS: BP 125/72; PULSE 60; RESP 18; TEMP 98.3; O2SAT 98
--- NOTE | 2017-03-03 12:38 | HHI.FPPN ---
Subjective Remarks Pt seen and examined this morning. No acute events overnight. AFVSS. Pt reports feeling well this morning. He denies acute vision changes, headaches, chest pain, shortness of breath. He has no additional acute concerns. Objective Vitals Vital Signs Date Time Temp Pulse Resp B/P (MAP) Pulse Ox O2 Delivery O2 Flow Rate FiO2 03/03/17 08:00 98.7 61 18 115/77 (90) 96 03/03/17 05:15 97.6 64 20 145/84 (104) 97 03/03/17 00:40 98.1 69 19 150/75 (100) 98 03/02/17 21:15 98.5 60 18 159/82 (107) 98 03/02/17 20:30 67 03/02/17 16:00 98.4 58 16 110/63 (79) 97 I/O 03/02/17 03/02/17 03/02/17 03/03/17 03/03/17 03/03/17 06:59 14:59 22:59 06:59 14:59 22:59 Intake Total 675 ml 500 ml 300 ml Output Total 1575 ml 450 ml 400 ml Balance -900 ml 50 ml -100 ml Intake Oral 675 ml 300 ml IV Total 500 ml Output Urine Total 1575 ml 450 ml 400 ml # Bowel Movements 0 0 Result Diagram: 03/02/17 0602 03/02/17 1315 Objective Remarks GENERAL: This is a well-nourished, well-developed patient, lying in bed in no apparent distress. SKIN: No rashes, ecchymoses or lesions. Warm, mildly diaphoretic. HEAD: Atraumatic. Normocephalic. EYES: Extraocular motions intact. No scleral icterus. No injection or drainage. Visual [place] intact. ENT: Nose without bleeding, purulent drainage or septal hematoma. Uvula midline. Airway patent. NECK: Trachea midline. No JVD or lymphadenopathy. CARDIOVASCULAR: Regular rate and rhythm without murmurs, gallops, or rubs. RESPIRATORY: Clear to auscultation. Breath sounds equal bilaterally. No wheezes , rales, or rhonchi. GASTROINTESTINAL: Abdomen soft, non-tender, nondistended. No guarding. MUSCULOSKELETAL: Extremities without clubbing, cyanosis, or edema. NEUROLOGICAL: Awake and alert. Cranial nerves II through XII intact. Sensory grossly within normal limits bilaterally in arms and legs. Five out of 5 muscle strength on left side, 4/5 in right arm and leg, possibly mildly improved today. Normal speech. A/P Assessment and Plan 66 year old male with a past history of Parkinsons, HTN, PE, CHF who presented to the ED due to right sided weakness. Right-sided weakness persisting. Past history of right-sided hemiplegia, reported to have had an episode similar to this a few years ago. PE workup negative. CVA workup unremarkable so far. Neurology following Discharge Planning Pending evaluation and clearance by psychiatry. Patient has been cleared by neurology. Likely tomorrow. Problem List: (1) Hemiplegia ICD Codes: G81.90 - Hemiplegia, unspecified affecting unspecified side Status: Acute Plan: Patient presented with right-sided cassi-plegia. No other focal neurological deficits noted. CT head without acute process, head MRA unremarkable, brain MRI unremarkable, neck MRA unremarkable. * Neurology consulted, appreciate recommendations * MRI brain, C-spine, Unremarkable for acute process * Neuro checks every 4hr, no acute changes this admission * Telemetry * ACS ruled out on admission, troponin 0.02, 0.04, 0.05, no acute ischemic changes on EKG * 2-D echo EF 55-60% * Came from [facility], will return Imaging: Brain MRI: Unremarkable. No evidence of acute ischemia Brain MRA: Unremarkable. No evidence for large vessel occlusion or significant intracranial stenosis Neck MRA: Unremarkable carotid exam. Head CT: No acute intracranial abnormality Carotid US: No hemodynamically significant stenosis (2) Chest tightness or pressure ICD Codes: R07.89 - Other chest pain Status: Acute Plan: Resolved Hx CHF, HTN, sedentary. Chest pain is constant. Given CAD hx, workup initiated including stat EKG, which shows no evidence of ST changes but does show worsened AV conduction. PE workup negative on admission. * Troponins within normal limits * Chest x-ray with compensated cardiomegaly otherwise negative * Echocardiogram ordered 02/26 EF 55-60% * Cardiology consulted to assist in management, cardiac stress test within normal limits * Cont ASA, also on Plavix for hx DVT * Nitrate SL PRN, morphine if needed (3) Back pain ICD Codes: M54.9 - Dorsalgia, unspecified Plan: Patient complains of back pain which he reports is similar to when he had a pulmonary embolism past. Well's score 4.5, Perc score 2 * Currently on Xarelto, ASA initiated * No signs or symptoms of DVT at this time * CTA without sign of pulmonary embolism Imaging: Chest CTA: No evidence of pulmonary embolism. 19mm right lower lobe nodule. Malignancy is not excluded. PET/CT scan is recommended for further evaluation, counseled patient about findings and need for outpt followup (4) Hypertension ICD Codes: I10 - Hypertension Status: Acute Plan: Chronic HTN.Home medications initially held for to allow for permissive hypertension * Continue home medications * Metoprolol 50 mg daily * Spironolactone 50 mg daily * Furosemide 40 mg twice a day * Metolazone 5 mg daily (5) Parkinson disease ICD Codes: G20 - Parkinson's disease Plan: History of Parkinson's * Continue carbidopa levodopa 25/100 mg every 8 hours- home medication (6) FEN Plan: Fluids * None, tolerating PO Electrolytes * Monitor and correct as needed Nutrition * Heart healthy diet Prophylaxis * Currently on Xarelto, SCDs * Zofran as needed Doron Rose MD R3 Mar 03, 2017 12:38
--- NOTE | 2017-03-03 15:28 | PD.PSY.CON ---
Provisional Diagnosis Admission Date Feb 26, 2017 at 14:28 [place]. Adjustment disorder with depressed mood. History of Present Illness Service Psychiatry Consult Requested By Reason for Consult Rule out conversion disorder Primary Care Physician Juan Antonio Kenney MD HPI The patient is a 66 year-old descent the men, domiciled in a residential facility, is , he does not have any previous psychiatric history, no previous psychiatric hospitalizations, no previous suicidal attempts , she denies history of trauma, denies history of sexual and physical abuse in the past, with a past medical history of Parkinsons, HTN, PE, CHF who presented to the ED due to right sided weakness. Right-sided weakness persisting. Past history of right-sided hemiplegia, reported to have had an episode similar to this a few years ago. PE workup negative. CVA workup unremarkable so far. Neurology following. Consulted to psychiatry due to the suspicion functional neurological disorder. On psychiatric evaluation today patient is calm, cooperative and very pleasant. Patient explains that the reason of his hospitalization is due to a suspected CVA after being found with weakness of his right side. Patient reports sad mood related with his current neurological condition. But he reports feeling much better today and more motivated. He denies hopelessness, he denies helplessness, he denies anhedonia, he denies poor appetite, he denies problems sleeping at night, he denies suicidal and homicidal ideation. Patient denies visual and auditory hallucinations. Patient is fully oriented 3, tension deficit, fluctuation of consciousness, no paranoia or delusions present. Patient denies anxiety, denies any recent or past traumatic experiences, denies nightmares, hypervigilance, flashbacks. Denies the use of alcohol and illicit drugs. Review of Systems Constitutional: DENIES: Diaphoretic episodes, Fatigue, Fever, Weight gain, Weight loss, Chills, Dizziness, Change in appetite, Night Sweats Endocrine: DENIES: Heat/cold intolerance, Polydipsia, Polyuria, Polyphagia Eyes: DENIES: Blurred vision, Diplopia, Eye inflammation, Eye pain, Vision loss , Photosensitivity, Double Vision Ears, nose, mouth, throat: DENIES: Tinnitus, Hearing loss, Vertigo, Nasal discharge, Oral lesions, Throat pain, Hoarseness, Ear Pain, Running Nose, Epistaxis, Sinus Pain, Toothache, Odynophagia Respiratory: DENIES: Apneas, Cough, Snoring, Wheezing, Hemoptysis, Sputum production, Shortness of breath Cardiovascular: DENIES: Chest pain, Palpitations, Syncope, Dyspnea on Exertion , PND, Lower Extremity Edema, Orthopnea, Claudication Gastrointestinal: DENIES: Abdominal pain, Black stools, Bloody stools, Constipation, Diarrhea, Nausea, Vomiting, Difficulty Swallowing, Anorexia Genitourinary: DENIES: Sexual dysfunction, Urinary frequency, Urinary incontinence, Urgency, Hematuria, Dysuria, Nocturia, Penile Discharge, Testicular Pain, Testicular Swelling Musculoskeletal: DENIES: Joint pain, Muscle aches, Stiffness, Joint Swelling, Back pain, Neck pain Integumentary: DENIES: Abnormal pigmentation, Nail changes, Pruritus, Rash Hematologic/lymphatic: DENIES: Bruising, Lymphadenopathy Immunologic/allergic: DENIES: Eczema, Urticaria Neurologic: COMPLAINS OF: Localized weakness Psychiatric: DENIES: Anxiety, Confusion, Mood changes, Depression, Hallucinations, Agitation, Suicidal Ideation, Homicidal Ideation, Delusions Past Family Social History Coded Allergies: gabapentin (Unverified Allergy, Severe, TACHYCARDIA, 01/02/17) Reported Medications Carbidopa-Levodopa (Sinemet) 25-100 Mg Tab, 1 TAB PO Q8HR for Parkinson Disease Mgmt, #90 TAB 0 Refills 02/26/17 Rivaroxaban (Xarelto) 20 Mg Tab, 20 MG PO DAILY for Blood Clot Prevention, TAB 0 Refills 09/04/16 Pentoxifylline ER (Pentoxifylline ER) 400 Mg Tab, 400 MG PO TID for Intermittent claudication, #90 TAB 0 Refills 09/04/16 Metoprolol Succinate ER 24 HR (Metoprolol Succinate ER 24 HR) 50 Mg Tab, 50 MG PO DAILY, #30 TAB 0 Refills 09/04/16 Tizanidine (Tizanidine) 2 Mg Cap, 1 MG PO TID for Muscle Spasm, CAP 0 Refills 09/04/16 Terazosin (Terazosin) 5 Mg Cap, 5 MG PO HS, #30 CAP 0 Refills 09/04/16 Pramipexole (Pramipexole) 0.25 Mg Tab, 0.25 MG PO TID for Parkinson Disease Mgmt , #90 TAB 0 Refills 09/04/16 Oxycodone (Oxycodone) 10 Mg Tab, 10 MG PO Q4H Y for PAIN, TAB 0 Refills 09/04/16 Minoxidil (Minoxidil) 10 Mg Tab, 20 MG PO DAILY for Blood Pressure Management, # 30 TAB 0 Refills 09/04/16 Metolazone (Metolazone) 5 Mg Tab, 5 MG PO DAILY, #30 TAB 0 Refills 09/04/16 Pregabalin (Lyrica) 100 Mg Cap, 100 MG PO BID, #60 CAP 0 Refills 09/04/16 Latanoprost Opth Drops (Latanoprost Opth Drops) 0.005% Drops, 1 DROP EACH EYE HS for Glaucoma, #2.5 ML 0 Refills Refrigerate until opened. 09/04/16 Ibuprofen (Ibuprofen) 600 Mg Tab, 600 MG PO Q6H Y for Pain/Inflammation, #40 TAB 0 Refills 09/04/16 Furosemide (Furosemide) 40 Mg Tab, 40 MG PO BID, #60 TAB 0 Refills 09/04/16 Brimonidine-Timolol Opth Drops (Combigan Opth Drops) 0.2-0.5% Soln, 1 DROP EACH EYE Q12HR for Glaucoma, BOTTLE 0 Refills 09/04/16 Cholecalciferol (Vitamin D3) 1,000 Unit Tab, 1000 UNITS PO DAILY for Nutritional Supplement, #1 BOTTLE 0 Refills 09/04/16 Spironolactone (Aldactone) 50 Mg Tab, 50 MG PO DAILY, #30 TAB 0 Refills 09/04/16 Discontinued Reported Medications Acetaminophen (Tylenol) 325 Mg Tab, 650 MG PO Q4H Y for PAIN SCALE 1 TO 10, TAB 0 Refills 09/04/16 Polyethylene Glycol-Propylene Opth (Systane Ultra Opth) 0.4-0.3% Soln, 1 DROP EACH EYE QID 09/04/16 Simethicone (Simethicone) 80 Mg Chw, 80 MG CHEW TID Y for GAS RETENTION, TAB 0 Refills 09/04/16 Temazepam (Restoril) 30 Mg Cap, 30 MG PO HS Y for INSOMNIA, #30 CAP 0 Refills 09/04/16 Potassium Chloride ER (Potassium Chloride CR) 10 Meq Tab, 10 MEQ PO DAILY, TAB 09/04/16 Nitroglycerin SL (Nitroglycerin SL) 0.3 Mg Subl, 0.3 MG SL DIRECTED Y for CHEST PAIN, #100 TAB.SL 0 Refills ONE TABLET UNDER THE TONGUE NEEDED FOR CHEST PAIN, MAY REPEAT EVERY FIVE MINUTES FOR A TOTAL OF 3 DOSES OR CALL 911 IF NO RELIEF 09/04/16 Uyfahjwt-Idzxbeabk-Foenpfewtzt Liq (Mylanta Liq) 200-200-20 Mg/5 Ml Susp, 30 ML PO QID for Indigestion, ML 0 Refills Take between meals or as directed. Shake well. Maximum 120 ml/24 hrs. 09/04/16 Polyethylene Glycol 3350 Powder (Miralax Powder) 17 Gm Powd, 17 GM PO DAILY for Constipation, #1 BOTTLE 0 Refills Mix and dissolve one measuring cap-ful (17 grams) in water or juice. 09/04/16 Melatonin (Melatonin) 3 Mg Cap, 6 MG PO HS for Insomnia 09/04/16 Lactic Acid (Ammonium Lactate) (Ammonium Lactate) 12% Lotn, 1 APPLIC TOPICAL BID , #225 ML 0 Refills 09/04/16 Docusate Sodium (Colace) 100 Mg Cap, 200 MG PO DAILY for Constipation, #60 CAP 0 Refills 09/04/16 Docusate Sodium (Colace) 100 Mg Cap, 100 MG PO BID Y for Constipation, #60 CAP 0 Refills 09/04/16 Current Medications Medications (Trade) Dose Ordered Sig/Cady Route Start Time Stop Time Status Last Admin (Sinemet 25-100 Mg) 1 tab Q8HR PO 02/26/17 22:00 03/03/17 14:45 (Xalatan 0.005% Opth Soln) 1 drop HS EACH EYE 02/26/17 21:00 03/02/17 20:41 (Mirapex) 0.25 mg TID PO 02/26/17 18:00 03/03/17 13:00 (Lyrica) 100 mg BID PO 02/26/17 21:00 03/03/17 11:26 (Xarelto) 20 mg DAILY PO 02/27/17 09:00 03/03/17 11:27 (Tylenol) 650 mg Q4H PRN PO 02/26/17 15:45 (Zofran Inj) 4 mg Q6H PRN IVP 02/26/17 15:45 03/02/17 11:49 (Tylenol) 650 mg Q6H PRN PO 02/26/17 15:45 ([place] 10-325 Mg) 1 tab Q4H PRN PO 02/26/17 15:45 03/03/17 11:51 (Percocet 5-325 Mg) 1 tab Q6H PRN PO 02/26/17 15:45 03/02/17 20:40 (Hyun-Colace) 1 tab BID PO 02/26/17 21:00 03/03/17 11:27 (Milk Of Magnesia Liq) 30 ml Q12H PRN PO 02/26/17 15:45 (Senokot) 17.2 mg Q12H PRN PO 02/26/17 15:45 (Dulcolax Supp) 10 mg DAILY PRN RECTAL 02/26/17 15:45 (Lactulose Liq) 30 ml DAILY PRN PO 02/26/17 15:45 (Alphagan 0.2% Opth Soln) 1 drop Q12HR EACH EYE 02/26/17 21:00 03/03/17 11:30 (Timoptic 0.5% Opth Soln) 1 drop Q12HR EACH EYE 02/26/17 21:00 03/03/17 11:30 (Ecotrin Ec) 81 mg DAILY PO 02/26/17 19:00 03/03/17 11:27 (NS Flush) 2 ml BID IV FLUSH 02/26/17 21:00 03/03/17 09:00 (NS Flush) 2 ml UNSCH PRN IV FLUSH 02/26/17 19:00 (Vasotec Inj) 1.25 mg Q6H PRN IV PUSH 02/26/17 19:00 Future Hold 03/01/17 15:16 (Lipitor) 10 mg DAILY PO 02/28/17 09:00 03/03/17 11:28 (Lasix) 40 mg DAILY@0900,1800 PO 02/28/17 09:00 03/03/17 09:00 (Zaroxolyn) 5 mg DAILY PO 02/28/17 09:00 03/03/17 11:27 (Toprol Xl) 50 mg DAILY PO 02/28/17 09:00 03/03/17 11:27 (Aldactone) 50 mg DAILY PO 02/28/17 09:00 03/03/17 11:26 (Nitrostat Sl) 0.4 mg Q5M PRN SL 02/28/17 10:45 (Morphine Inj) 2 mg Q30M PRN IV PUSH 02/28/17 10:45 (Carafate Liq) 1 gm ACHS PO 03/02/17 21:00 03/03/17 11:26 Family Psych History He denies family psychiatric history Social History He was born and raised in [place], his parents are from [place], he is , he lives in a residential facility, he is retired, he is a college probably present. Patient's Strengths (min. 2) No previous psychiatric history Physical Exam Vital Signs Vital Signs Date Time Temp Pulse Resp B/P (MAP) Pulse Ox O2 Delivery O2 Flow Rate FiO2 03/03/17 12:00 98.3 60 18 125/72 (89) 98 03/01/17 10:37 21 I/O 03/03/17 03/03/17 03/04/17 08:00 16:00 00:00 Intake Total 300 ml Output Total 400 ml Balance -100 ml Mental Status Examination Appearance: Appropriate Consciousness: Alert Orientation: x4 Motor Activity: Normal gait Speech: Unremarkable Language: Adequate Fund of Knowledge: Adequate Attention and Concentration: Adequate Memory: Unremarkable Mood: Appropriate Affect: Appropriate Thought Process & Associations: Intact Thought Content: Appropriate Hallucination Type: None Delusion Type: None Suicidal Ideation: No Suicidal Plan: No Suicidal Intention: No Homicidal Ideation: No Homicidal Plan: No Homicidal Intention: No Insight: Adequate Judgment: Adequate Assessment & Plan Problem List: (1) Adjustment disorder with depressed mood ICD Codes: F43.21 - Adjustment disorder with depressed mood Assessment & Plan: ON Psychiatric evaluation today the patient does not present any significant, acute or concerning evidence of depressive symptoms, anxiety, salo or psychosis. The patient denies suicidal and homicidal ideation , the patient denies visual and auditory hallucinations. Does report mild to moderate sadness related with current hospitalization and neurological condition which seems to be related with adjustment. At the moment of this evaluation he cannot identify any personality trait, history of trauma, current acute stressors that can account or fuel a conversion disorder. There is no evidence of primary or secondary gain of self-produced or unconscious neurological symptoms. Patient is not in the grout category of risk for this conditions. Patient doesn't even have a previous psychiatric history. However , more longitudinal observation would be needed in order to do a right diagnosis of factitious disorder, malingering or conversion disorder. He does not meet criteria for psychiatric admission. I would suggest a geriatric social worker intervention for outpatient psychiatric appointment. Extensive support and psychoeducation provided. No psychotropics recommended. Consul appreciated. Assessment & Plan Estimated LOS: Alden Bloom MD Mar 03, 2017 15:28
[2017-03-03 16:00] VITALS: BP 137/78; PULSE 72; RESP 19; TEMP 98; O2SAT 98
--- NOTE | 2017-03-03 18:51 | HHI.PR ---
Addendum to Inpatient Note Addendum Reason: Additional Documentation Additional Information Off service note 03/03 Patient was a med's 02/26/17 for potential stroke. He had presented with right- sided hemiplegia. Head CT, brain MRI, head MRI showed no acute process. Neck MRA showed no significant flow-limiting stenosis. A repeat brain MRI was also negative. The EEG obtained showed a normal awake and drowsy EEG. The neurologist consulted recommended no additional neurologic workup and to consider psychiatry consult. Patient continued to have right-sided weakness throughout admission. On admission patient complained of back pain which he said was similar to pain in the past when he had pulmonary embolism. CT and she'll showed no evidence of pulmonary embolism, and a 2.19 mm right lower lobe nodule. PET scan was recommended for further evaluation if clinically indicated. PET scan is not available in this hospital and needs to be followed up outpatient. On 02/28 patient reported chest tightness. Troponins were within normal limits, chest x-ray showed compensated cardiomegaly otherwise negative. EKG showed sinus bradycardia with PVCs. Cartilage and was consulted and myocardial perfusion scan was performed. It showed no evidence of fixed or reversible perfusion abnormalities. Normal wall motion and ejection fraction. Austen Wilson MD R1 Mar 03, 2017 18:51
[2017-03-03] MEDS: LATANOPROST 0.005% OPHT SOLN 2.5 ML BTL EACH EYE SCH (21:09)
[2017-03-03 21:14] VITALS: BP 143/70; PULSE 74; RESP 20; TEMP 98.1; O2SAT 97
[2017-03-04] VITALS (7 sets, daily range): BP systolic 108–128; BP diastolic 62–71; PULSE 57–67; RESP 18–20; TEMP 93.7–98.4; O2SAT 92–98
[2017-03-04] MEDS: ACETAMINOPHEN/HYDROcodone 325 MG/10 MG TAB PO PRN ×5 (00:53→21:08)
[2017-03-04] MEDS: CARBIDOPA/LEVODOPA 25 MG/100 MG TAB PO SCH ×3 (06:12→21:08)
[2017-03-04 08:07] LABS: HEMATOCRIT 41.8 % (39.0-51.0); MEAN CELL VOLUME 89.7 FL (80.0-100.0); MEAN CORPUSCULAR HEMOGLOBIN 30.6 PG (27.0-34.0); MEAN CORPUSCULAR HGB CONC 34.2 % (32.0-36.0); PLATELET COUNT 246 TH/MM3 (150-450); RED BLOOD COUNT 4.66 MIL/MM3 (4.50-5.90); RED CELL DISTRIBUTION WIDTH 12.9 % (11.6-17.2); REVIEW FLAG FINAL; WHITE BLOOD COUNT 7.5 TH/MM3 (4.0-11.0)
[2017-03-04 08:23] LABS: BICARBONATE 29.6 MEQ/L (21.0-32.0)
[2017-03-04] MEDS: SUCRALFATE 1 GM/10 ML CUP PO SCH ×4 (08:43→21:08)
[2017-03-04] MEDS: TIMOLOL MALEATE 0.5% OPHT SOLN 5 ML BTL EACH EYE SCH ×2 (08:43→21:09)
[2017-03-04] MEDS: SPIRONOLACTONE 50 MG TAB PO SCH (08:44)
[2017-03-04] MEDS: RIVAROXABAN 20 MG TAB PO SCH (08:44)
[2017-03-04] MEDS: BRIMONIDINE TARTRATE 0.2% OPHT SOLN 5 ML BTL EACH EYE SCH ×2 (08:44→21:09)
[2017-03-04] MEDS: SODIUM CHLORIDE 0.9% FLUSH 5 ML FLUSH IV FLUSH SCH ×2 (08:44→21:09)
[2017-03-04] MEDS: PREGABALIN 100 MG CAP PO SCH ×2 (08:45→21:08)
[2017-03-04] MEDS: METOLAZONE 5 MG TAB PO SCH (08:45)
[2017-03-04] MEDS: PRAMIPEXOLE DIHYDROCHLORIDE 0.25 MG TAB PO SCH ×3 (08:45→17:09)
[2017-03-04] MEDS: ATORVASTATIN 10 MG TAB PO SCH (08:46)
[2017-03-04] MEDS: METOPROLOL SUCCINATE 50 MG EXTENDED RELEASE TAB PO SCH (08:46)
[2017-03-04] MEDS: DOCUSATE SODIUM 50 MG/SENNA 8.6 MG TAB PO SCH ×2 (08:46→21:08)
[2017-03-04] MEDS: ASPIRIN EC 81 MG TABEC PO SCH (08:46)
[2017-03-04] MEDS: FUROSEMIDE 40 MG TAB PO SCH ×2 (08:54→17:09)
--- NOTE | 2017-03-04 10:28 | HHI.FPPN ---
Subjective Remarks No acute overnight events. Afebrile. Denies fevers, chills, chest pain, shortness of breath, new neurological symptoms. Psych evaluation yesterday; pt does deny mood concerns. Patient feels the same as yesterday and has been doing exercises with his hands. He notes he refuses to return to [place] because they did not call 911 for him prior to admission. Objective Vitals Vital Signs Date Time Temp Pulse Resp B/P (MAP) Pulse Ox O2 Delivery O2 Flow Rate FiO2 03/04/17 08:42 61 03/04/17 08:00 98.1 57 18 113/66 (82) 97 03/04/17 05:49 93.7 57 20 119/62 (81) 98 03/04/17 01:06 97.9 57 18 108/65 (79) 92 03/04/17 00:53 60 03/03/17 21:14 98.1 74 20 143/70 (94) 97 03/03/17 16:00 98.0 72 19 137/78 (97) 98 03/03/17 12:00 98.3 60 18 125/72 (89) 98 I/O 03/03/17 03/03/17 03/03/17 03/04/17 03/04/17 03/04/17 07:00 15:00 23:00 07:00 15:00 23:00 Intake Total 300 ml 480 ml 480 ml 240 ml Output Total 400 ml 400 ml 100 ml 300 ml 300 ml Balance -100 ml 80 ml 380 ml -60 ml -300 ml Intake Oral 300 ml 480 ml 480 ml 240 ml Output Urine Total 400 ml 400 ml 100 ml 300 ml 300 ml # Bowel Movements 0 0 Result Diagram: 03/04/1772303/04/1724 Imaging Last Impressions Myocardial Perfusion Scan Nuc Med 03/01/17 0000 Signed Impressions: Service Date/Time: February 12:08 - CONCLUSION: No evidence of fixed or reversible perfusion abnormalities. Normal wall motion and ejection fraction. RISK CATEGORY: Low (<1%% Annual Mortality Rate) Daryl Benitez MD Cervical Spine MRI 03/01/17 0000 Signed Impressions: Service Date/Time: February 11:04 - CONCLUSION: 1. Degenerative changes in the cervical spine as above. No significant neural foraminal stenosis or spinal stenosis identified. Austyn Valero MD Brain MRI 03/01/17 0000 Signed Impressions: Service Date/Time: February 11:04 - CONCLUSION: 1. Negative examination. Austyn Valero MD Chest X-Ray 02/28/17 0000 Signed Impressions: Service Date/Time: Tuesday, February 28, 2017 10:29 - CONCLUSION: Compensated cardiomegaly otherwise negative Ranjit Valero MD [facility] Neck Magnetic Resonance Angiography 02/26/17 1410 Signed Impressions: Service Date/Time: Sunday, February 26, 2017 16:02 - CONCLUSION: 1. Unremarkable carotid MRA examination. No significant flow-limiting stenosis. Ayush Zamora MD Head Magnetic Resonance Angiography 02/26/17 1410 Signed Impressions: Service Date/Time: Sunday, February 26, 2017 16:02 - CONCLUSION: 1. Unremarkable MRA examination of the brain. Specifically, no evidence for large vessel occlusion or significant intracranial stenosis. Ayush Zamora MD Head CT 02/26/17 1222 Signed Impressions: Service Date/Time: Sunday, February 26, 2017 13:26 - CONCLUSION: 1. No acute intracranial abnormality. Ayush Zamora MD Carotid Artery Ultrasound 02/26/17 0000 Signed Impressions: Service Date/Time: Sunday, February 26, 2017 18:48 - CONCLUSION: No evidence of hemodynamically significant lesion. Juan Antonio Watson MD CT Angiography 02/26/17 0000 Signed Impressions: Service Date/Time: Sunday, February 26, 2017 19:45 - CONCLUSION: 1. No evidence of pulmonary embolism. 2. 19 mm right lower lobe nodule. Malignancy is not excluded. PET/CT scan is recommended to further evaluation if clinically indicated. Juan Antonio Watson MD Objective Remarks GENERAL: This is a well-nourished, well-developed patient, lying in bed in no apparent distress. SKIN: No rashes, ecchymoses or lesions. Warm, mildly diaphoretic. HEAD: Atraumatic. Normocephalic. EYES: Extraocular motions intact. No scleral icterus. No injection or drainage. Visual [place] intact. ENT: Nose without bleeding, purulent drainage or septal hematoma. Uvula midline. Airway patent. NECK: Trachea midline. No JVD or lymphadenopathy. CARDIOVASCULAR: Regular rate and rhythm without murmurs, gallops, or rubs. RESPIRATORY: Clear to auscultation. Breath sounds equal bilaterally. No wheezes , rales, or rhonchi. GASTROINTESTINAL: Abdomen soft, non-tender, nondistended. No guarding. MUSCULOSKELETAL: Extremities without clubbing, cyanosis, or edema. NEUROLOGICAL: Awake and alert. Cranial nerves II through XII intact. Sensory grossly within normal limits bilaterally in arms and legs. Five out of 5 muscle strength on left side, 5/5 in right arm and leg. Normal speech. Medications and IVs Inpatient Medications Acetaminophen (Tylenol) 650 mg Q6H PRN PO PAIN SCALE 1 TO 2; Start 02/26/17 at 15:45 Acetaminophen/ Hydrocodone Bitart (Wever 10-325 Mg) 1 tab Q4H PRN PO PAIN SCALE 6 TO 10 Last administered on 03/04/17 13:00; Start 02/26/17 at 15:45 Aspirin (Ecotrin Ec) 81 mg DAILY PO Last administered on 03/04/17 08:46; Start 02/26/17 at 19:00 Atorvastatin Calcium (Lipitor) 10 mg DAILY PO Last administered on 03/04/17 08:46; Start 02/28/17 at 09:00 Bisacodyl (Dulcolax Supp) 10 mg DAILY PRN RECTAL SEVERE CONSITIPATION; Start 02/26/17 at 15:45 Brimonidine Tartrate (Alphagan 0.2% Opt Sol) 1 drop Q12HR EACH EYE Last administered on 03/04/17 08:44; Start 02/26/17 at 21:00 Carbidopa/Levodopa (Sinemet 25-100 Mg) 1 tab Q8HR PO Last administered on 03/04 13:00; Start 02/26/17 at 22:00 Clonidine (Catapres) 0.1 mg ONCE ONCE PO Last administered on 03/02/17 11:49 ; Start 03/02/17 at 11:45; Stop 03/02/17 at 11:46; Status DC Dextrose (D50w (Vial) Inj) 50 ml UNSCH PRN IV PUSH HYPOGLYCEMIA-SEE COMMENTS; Start 02/26/17 at 19:00; Stop 03/02/17 at 09:24; Status DC Enalaprilat (Vasotec Inj) 1.25 mg Q6H PRN IV PUSH SBP> OR = 180, DBP> OR = 100 ; Start 02/27/17 at 00:00; Stop 03/01/17 at 15:56; Status DC Furosemide (Lasix) 40 mg DAILY@0900,1800 PO Last administered on 03/04/17 08: 54; Start 02/28/17 at 09:00 Glucagon (Glucagon Inj) 1 mg UNSCH PRN OTHER HYPOGLYCEMIA-SEE COMMENTS; Start 02/26/17 at 19:00; Stop 03/02/17 at 09:24; Status DC Insulin Aspart (NovoLOG SUPPLEMENTAL SCALE) 1 ACHS SQ ; Start 02/26/17 at 21:00 ; Stop 03/02/17 at 09:24; Status DC IV Flush (NS Flush) 2 ml UNSCH PRN IV FLUSH FLUSH AFTER USING IV ACCESS; Start 02/26/17 at 19:00 Lactulose (Lactulose Liq) 30 ml DAILY PRN PO SEVERE CONSITIPATION; Start at 15:45 Latanoprost (Xalatan 0.005% Opth Soln) 1 drop HS EACH EYE Last administered on 03/03/17 21:09; Start 02/26/17 at 21:00 Magnesium Hydroxide (Milk Of Magnesia Liq) 30 ml Q12H PRN PO MILD - MODERATE CONSTIPATION; Start 02/26/17 at 15:45 Metolazone (Zaroxolyn) 5 mg DAILY PO Last administered on 03/04/17 08:45; Start 02/28/17 at 09:00 Metoprolol Succinate (Toprol Xl) 50 mg DAILY PO Last administered on 11:27; Start 02/28/17 at 09:00 Morphine Sulfate (Morphine Inj) 2 mg Q30M PRN IV PUSH CHEST PAIN; Start at 10:45 Nitroglycerin (Nitrostat Sl) 0.4 mg Q5M PRN SL CHEST PAIN; Start 02/28/17 at 10:45 Ondansetron HCl (Zofran Inj) 4 mg Q6H PRN IVP NAUSEA OR VOMITING Last administered on 03/02/17 11:49; Start 02/26/17 at 15:45 Oxycodone/ Acetaminophen (Percocet 5-325 Mg) 1 tab Q6H PRN PO PAIN SCALE 3 TO 5 Last administered on 03/02/17 20:40; Start 02/26/17 at 15:45 Potassium Chloride (KCl) 30 meq ONCE ONCE PO Last administered on 03/02/17 11:40; Start 03/02/17 at 11:15; Stop 03/02/17 at 11:16; Status DC Pramipexole Dihydrochloride (Mirapex) 0.25 mg TID PO Last administered on 03/04 12:16; Start 02/26/17 at 18:00 Pregabalin (Lyrica) 100 mg BID PO Last administered on 03/04/17 08:45; Start 02/26/17 at 21:00 Rivaroxaban (Xarelto) 20 mg DAILY PO Last administered on 03/04/17 08:44; Start 02/27/17 at 09:00 Senna/Docusate Sodium (Hyun-Colace) 1 tab BID PO Last administered on 08:46; Start 02/26/17 at 21:00 Sennosides (Senokot) 17.2 mg Q12H PRN PO MODERATE - SEVERE CONSTIPATION Last administered on 03/03/17 21:11; Start 02/26/17 at 15:45 Sodium Chloride 500 ml @ 500 mls/hr BOLUS ONCE IV Last administered on 11:44; Start 03/02/17 at 11:15; Stop 03/02/17 at 12:14; Status DC Sodium Chloride (NS Flush) 2 ml BID IV FLUSH ; Start 02/26/17 at 21:00; Stop at 21:00; Status DC Spironolactone (Aldactone) 50 mg DAILY PO Last administered on 03/04/17 08:44 ; Start 02/28/17 at 09:00 Sucralfate (Carafate Liq) 1 gm ACHS PO Last administered on 03/04/17 12:16; Start 03/02/17 at 21:00 Timolol Maleate (Timoptic 0.5% Opt Soln) 1 drop Q12HR EACH EYE Last administered on 03/04/17 08:43; Start 02/26/17 at 21:00 Urinary Catheter: No Vascular Central Line Catheter: No A/P Assessment and Plan 66 year old male with a past history of Parkinsons, HTN, PE, CHF who presented to the ED due to right sided weakness. Right-sided weakness persisting. Past history of right-sided hemiplegia, reported to have had an episode similar to this a few years ago. PE workup negative. CVA workup unremarkable so far. Neurology following Discharge Planning Patient has been cleared by neurology. Psychiatric evaluation showed no concerns. Pt medically cleared for discharge, will discharge today. CM to assist as pt refusing return to [place] (he has been there since 2012). Problem List: (1) Hemiplegia ICD Codes: G81.90 - Hemiplegia, unspecified affecting unspecified side Status: Resolved Plan: Patient presented with right-sided cassi-plegia, resolved. No other focal neurological deficits noted. CT head without acute process, head MRA unremarkable, brain MRI unremarkable, neck MRA unremarkable. * Neurology consulted, appreciate recommendations, cleared patient neurologically * Psychiatry consulted, cleared patient * MRI brain, C-spine, Unremarkable for acute process * Neuro checks every 4hr, no acute changes this admission * Telemetry, discontinue * ACS ruled out on admission, troponin 0.02, 0.04, 0.05, no acute ischemic changes on EKG * 2-D echo EF 55-60% * Chemical stress test unremarkable * Came from [facility], care, will likely return Imaging: Brain MRI: Unremarkable. No evidence of acute ischemia Brain MRA: Unremarkable. No evidence for large vessel occlusion or significant intracranial stenosis Neck MRA: Unremarkable carotid exam. Head CT: No acute intracranial abnormality Carotid US: No hemodynamically significant stenosis (2) Chest tightness or pressure ICD Codes: R07.89 - Other chest pain Status: Resolved Plan: Resolved Hx CHF, HTN, sedentary. Given CAD hx, workup initiated including stat EKG, which shows no evidence of ST changes but does show worsened AV conduction. PE workup negative on admission. * Cardiac enzymes within normal limits * Chest x-ray with compensated cardiomegaly otherwise negative * Echocardiogram ordered 02/26 EF 55-60% * Cardiology consulted to assist in management, cardiac stress test within normal limits * Cont ASA, also on Plavix for hx DVT * Nitrate SL PRN, morphine if needed (3) Back pain ICD Codes: M54.9 - Dorsalgia, unspecified Status: Chronic Plan: Patient complains of back pain which he reports is similar to when he had a pulmonary embolism past. Well's score 4.5, Perc score 2 * Currently on Xarelto, ASA initiated * No signs or symptoms of DVT at this time * CTA without sign of pulmonary embolism Imaging: Chest CTA: No evidence of pulmonary embolism. 19mm right lower lobe nodule. Malignancy is not excluded. PET/CT scan is recommended for further evaluation, counseled patient about findings and need for outpt followup (4) Hypertension ICD Codes: I10 - Hypertension Status: Chronic Plan: Chronic HTN. * Continue home medications * Metoprolol 50 mg daily * Spironolactone 50 mg daily * Furosemide 40 mg twice a day * Metolazone 5 mg daily (5) Parkinson disease ICD Codes: G20 - Parkinson's disease Status: Chronic Plan: History of Parkinson's * Continue carbidopa levodopa 25/100 mg every 8 hours- home medication (6) FEN Plan: Fluids * None, tolerating PO Electrolytes * Monitor and correct as needed Nutrition * Heart healthy diet Prophylaxis * Currently on Xarelto, SCDs * Zofran as needed Candelaria Rose MD R2 Mar 04, 2017 10:28
[2017-03-04] MEDS ORDERED: ASPI-99 PO (13:14)
[2017-03-04] MEDS ORDERED: LIPI10TA PO (13:14)
--- NOTE | 2017-03-04 13:15 | HHI.DCPOC ---
Discharge Care Plan Diagnosis: (1) Hypertension (2) Generalized weakness (3) TIA (transient ischemic attack) (4) Hemiplegia (5) Numbness and tingling in right hand (6) Mass of lung Goals to Promote Your Health * To prevent worsening of your condition and complications * To maintain your health at the optimal level Directions to Meet Your Goals Take your medications as prescribed Follow your dietary instruction Follow activity as directed Keep your appointments as scheduled Take your immunizations and boosters as scheduled If your symptoms worsen call your PCP, if no PCP go to Urgent Care Center or Emergency Room Smoking is Dangerous to Your Health. Avoid second hand smoke Call the 24-hour hour crisis hotline for domestic abuse at Candelaria Rose MD R2 Mar 04, 2017 13:15
[2017-03-04] MEDS: LATANOPROST 0.005% OPHT SOLN 2.5 ML BTL EACH EYE SCH (21:09)
[2017-03-05 02:47] VITALS: PULSE 63
[2017-03-05 05:38] VITALS: BP 116/69; PULSE 61; RESP 20; TEMP 98; O2SAT 96
[2017-03-05] MEDS: CARBIDOPA/LEVODOPA 25 MG/100 MG TAB PO SCH ×2 (06:07→12:48)
[2017-03-05] MEDS: ACETAMINOPHEN/HYDROcodone 325 MG/10 MG TAB PO PRN (06:08)
[2017-03-05 08:00] VITALS: BP 117/73; PULSE 63; RESP 16; TEMP 97.6; O2SAT 96
[2017-03-05] MEDS: SUCRALFATE 1 GM/10 ML CUP PO SCH ×3 (08:06→16:05)
[2017-03-05] MEDS: ATORVASTATIN 10 MG TAB PO SCH (08:06)
[2017-03-05] MEDS: SPIRONOLACTONE 50 MG TAB PO SCH (08:06)
[2017-03-05] MEDS: ASPIRIN EC 81 MG TABEC PO SCH (08:06)
[2017-03-05] MEDS: RIVAROXABAN 20 MG TAB PO SCH (08:06)
[2017-03-05] MEDS: METOPROLOL SUCCINATE 50 MG EXTENDED RELEASE TAB PO SCH (08:06)
[2017-03-05] MEDS: PREGABALIN 100 MG CAP PO SCH (08:06)
[2017-03-05] MEDS: DOCUSATE SODIUM 50 MG/SENNA 8.6 MG TAB PO SCH (08:06)
[2017-03-05] MEDS: PRAMIPEXOLE DIHYDROCHLORIDE 0.25 MG TAB PO SCH ×2 (08:06→12:48)
[2017-03-05] MEDS: METOLAZONE 5 MG TAB PO SCH (08:07)
[2017-03-05] MEDS: SODIUM CHLORIDE 0.9% FLUSH 5 ML FLUSH IV FLUSH SCH (08:07)
[2017-03-05] MEDS: TIMOLOL MALEATE 0.5% OPHT SOLN 5 ML BTL EACH EYE SCH (08:11)
[2017-03-05] MEDS: BRIMONIDINE TARTRATE 0.2% OPHT SOLN 5 ML BTL EACH EYE SCH (08:11)
[2017-03-05] MEDS: FUROSEMIDE 40 MG TAB PO SCH (08:11)
[2017-03-05 08:41] VITALS: PULSE 69
[2017-03-05] MEDS ORDERED: PANTOPRAZOLE SOD 20 MG DELAYED RELEASE TAB PO SCH (09:45)
--- NOTE | 2017-03-05 10:47 | HHI.FPPN ---
Subjective Remarks Patient is seen and examined this morning. He was discharged yesterday but placement is in process given he does not want to return to [place]. He denies any new complaints today but states he does have some chest pressure which is similar that to before. He states that sucralfate does help with the symptoms. He denies any other symptoms at this time. He notes he is doing exercises to strengthen his extremities while in bed. Objective Vitals Vital Signs Date Time Temp Pulse Resp B/P (MAP) Pulse Ox O2 Delivery O2 Flow Rate FiO2 03/05/17 08:41 69 03/05/17 08:00 97.6 63 16 117/73 (88) 96 03/05/17 05:38 98.0 61 20 116/69 (85) 96 03/05/17 02:47 63 03/04/17 21:05 97.9 67 20 120/65 (83) 97 03/04/17 18:21 18 03/04/17 12:00 98.4 60 19 128/71 (90) 98 I/O 03/04/17 03/04/17 03/04/17 03/05/17 03/05/17 03/05/17 07:00 15:00 23:00 07:00 15:00 23:00 Intake Total 240 ml 760 ml 360 ml Output Total 300 ml 950 ml 525 ml 400 ml 200 ml Balance -60 ml -190 ml -525 ml -40 ml -200 ml Intake Oral 240 ml 760 ml 360 ml Output Urine Total 300 ml 950 ml 525 ml 400 ml 200 ml # Voids 2 # Bowel Movements 0 Result Diagram: 03/04/17 0724 03/04/17723 Imaging Last Impressions Myocardial Perfusion Scan Nuc Med 03/01/17 0000 Signed Impressions: Service Date/Time: February 12:08 - CONCLUSION: No evidence of fixed or reversible perfusion abnormalities. Normal wall motion and ejection fraction. RISK CATEGORY: Low (<1%% Annual Mortality Rate) Daryl Benitez MD Cervical Spine MRI 03/01/17 0000 Signed Impressions: Service Date/Time: February 11:04 - CONCLUSION: 1. Degenerative changes in the cervical spine as above. No significant neural foraminal stenosis or spinal stenosis identified. Austyn Valero MD Brain MRI 03/01/17 0000 Signed Impressions: Service Date/Time: February 11:04 - CONCLUSION: 1. Negative examination. Austyn Valero MD Chest X-Ray 02/28/17 0000 Signed Impressions: Service Date/Time: Tuesday, February 28, 2017 10:29 - CONCLUSION: Compensated cardiomegaly otherwise negative Ranjit Valero MD FACR Neck Magnetic Resonance Angiography 02/26/17 1410 Signed Impressions: Service Date/Time: Sunday, February 26, 2017 16:02 - CONCLUSION: 1. Unremarkable carotid MRA examination. No significant flow-limiting stenosis. Ayush Zamora MD Head Magnetic Resonance Angiography 02/26/17 1410 Signed Impressions: Service Date/Time: Sunday, February 26, 2017 16:02 - CONCLUSION: 1. Unremarkable MRA examination of the brain. Specifically, no evidence for large vessel occlusion or significant intracranial stenosis. Ayush Zamora MD Head CT 02/26/17 1222 Signed Impressions: Service Date/Time: Sunday, February 26, 2017 13:26 - CONCLUSION: 1. No acute intracranial abnormality. Ayush Zamora MD Carotid Artery Ultrasound 02/26/17 0000 Signed Impressions: Service Date/Time: Sunday, February 26, 2017 18:48 - CONCLUSION: No evidence of hemodynamically significant lesion. Juan Antonio Watson MD CT Angiography 02/26/17 0000 Signed Impressions: Service Date/Time: Sunday, February 26, 2017 19:45 - CONCLUSION: 1. No evidence of pulmonary embolism. 2. 19 mm right lower lobe nodule. Malignancy is not excluded. PET/CT scan is recommended to further evaluation if clinically indicated. Juan Antonio Watson MD Objective Remarks GENERAL: This is a well-nourished, well-developed patient, lying in bed in no apparent distress. SKIN: No rashes, ecchymoses or lesions. Warm, mildly diaphoretic. HEAD: Atraumatic. Normocephalic. EYES: Extraocular motions intact. No scleral icterus. No injection or drainage. Visual [place] intact. ENT: Nose without bleeding, purulent drainage or septal hematoma. Uvula midline. Airway patent. NECK: Trachea midline. No JVD or lymphadenopathy. CARDIOVASCULAR: Regular rate and rhythm without murmurs, gallops, or rubs. RESPIRATORY: Clear to auscultation. Breath sounds equal bilaterally. No wheezes , rales, or rhonchi. GASTROINTESTINAL: Abdomen soft, non-tender, nondistended. No guarding. MUSCULOSKELETAL: Extremities without clubbing, cyanosis, or edema. NEUROLOGICAL: Awake and alert. Cranial nerves II through XII intact. Sensory grossly within normal limits bilaterally in arms and legs. Five out of 5 muscle strength on left side, 5/5 in right arm and leg. Normal speech. Medications and IVs Inpatient Medications Acetaminophen (Tylenol) 650 mg Q6H PRN PO PAIN SCALE 1 TO 10; Start 02/26/17 at 15:45 Acetaminophen/ Hydrocodone Bitart ([place] 10-325 Mg) 1 tab Q4H PRN PO PAIN SCALE 6 TO 10 Last administered on 03/05/17 06:08; Start 02/26/17 at 15:45; Stop 03/05/17 at 07:11; Status DC Aspirin (Ecotrin Ec) 81 mg DAILY PO Last administered on 03/05/17 08:06; Start 02/26/17 at 19:00 Atorvastatin Calcium (Lipitor) 10 mg DAILY PO Last administered on 03/05/17 08:06; Start 02/28/17 at 09:00 Bisacodyl (Dulcolax Supp) 10 mg DAILY PRN RECTAL SEVERE CONSITIPATION; Start 02/26/17 at 15:45 Brimonidine Tartrate (Alphagan 0.2% Opth Soln) 1 drop Q12HR EACH EYE Last administered on 03/04/17 21:09; Start 02/26/17 at 21:00 Carbidopa/Levodopa (Sinemet 25-100 Mg) 1 tab Q8HR PO Last administered on 03/05 06:07; Start 02/26/17 at 22:00 Clonidine (Catapres) 0.1 mg ONCE ONCE PO Last administered on 03/02/17 11:49 ; Start 03/02/17 at 11:45; Stop 03/02/17 at 11:46; Status DC Dextrose (D50w (Vial) Inj) 50 ml UNSCH PRN IV PUSH HYPOGLYCEMIA-SEE COMMENTS; Start 02/26/17 at 19:00; Stop 03/02/17 at 09:24; Status DC Enalaprilat (Vasotec Inj) 1.25 mg Q6H PRN IV PUSH SBP> OR = 180, DBP> OR = 100 ; Start 02/27/17 at 00:00; Stop 03/01/17 at 15:56; Status DC Furosemide (Lasix) 40 mg DAILY@0900,1800 PO Last administered on 03/05/17 08: 11; Start 02/28/17 at 09:00 Glucagon (Glucagon Inj) 1 mg UNSCH PRN OTHER HYPOGLYCEMIA-SEE COMMENTS; Start 02/26/17 at 19:00; Stop 03/02/17 at 09:24; Status DC Insulin Aspart (NovoLOG SUPPLEMENTAL SCALE) 1 ACHS SQ ; Start 02/26/17 at 21:00 ; Stop 03/02/17 at 09:24; Status DC IV Flush (NS Flush) 2 ml UNSCH PRN IV FLUSH FLUSH AFTER USING IV ACCESS; Start 02/26/17 at 19:00 Lactulose (Lactulose Liq) 30 ml DAILY PRN PO SEVERE CONSITIPATION Last administered on 03/05/17 11:08; Start 02/26/17 at 15:45 Latanoprost (Xalatan 0.005% Opth Soln) 1 drop HS EACH EYE Last administered on 03/04/17 21:09; Start 02/26/17 at 21:00 Magnesium Hydroxide (Milk Of Magnesia Liq) 30 ml Q12H PRN PO MILD - MODERATE CONSTIPATION Last administered on 03/05/17 06:07; Start 02/26/17 at 15:45 Metolazone (Zaroxolyn) 5 mg DAILY PO Last administered on 03/05/17 08:07; Start 02/28/17 at 09:00 Metoprolol Succinate (Toprol Xl) 50 mg DAILY PO Last administered on 08:06; Start 02/28/17 at 09:00 Morphine Sulfate (Morphine Inj) 2 mg Q30M PRN IV PUSH CHEST PAIN; Start at 10:45 Nitroglycerin (Nitrostat Sl) 0.4 mg Q5M PRN SL CHEST PAIN; Start 02/28/17 at 10:45 Ondansetron HCl (Zofran Inj) 4 mg Q6H PRN IVP NAUSEA OR VOMITING Last administered on 03/02/17 11:49; Start 02/26/17 at 15:45 Oxycodone/ Acetaminophen (Percocet 5-325 Mg) 1 tab Q6H PRN PO PAIN SCALE 3 TO 5 Last administered on 03/02/17 20:40; Start 02/26/17 at 15:45; Stop at 07:11; Status DC Pantoprazole Sodium (Protonix) 20 mg DAILY PO Last administered on 03/05/17 09:53; Start 03/05/17 at 09:45 Potassium Chloride (KCl) 30 meq ONCE ONCE PO Last administered on 03/02/17 11:40; Start 03/02/17 at 11:15; Stop 03/02/17 at 11:16; Status DC Pramipexole Dihydrochloride (Mirapex) 0.25 mg TID PO Last administered on 03/05 08:06; Start 02/26/17 at 18:00 Pregabalin (Lyrica) 100 mg BID PO Last administered on 03/05/17 08:06; Start 02/26/17 at 21:00 Rivaroxaban (Xarelto) 20 mg DAILY PO Last administered on 03/05/17 08:06; Start 02/27/17 at 09:00 Senna/Docusate Sodium (Hyun-Colace) 1 tab BID PO Last administered on 08:06; Start 02/26/17 at 21:00 Sennosides (Senokot) 17.2 mg Q12H PRN PO MODERATE - SEVERE CONSTIPATION Last administered on 03/03/17 21:11; Start 02/26/17 at 15:45 Sodium Chloride 500 ml @ 500 mls/hr BOLUS ONCE IV Last administered on 11:44; Start 03/02/17 at 11:15; Stop 03/02/17 at 12:14; Status DC Sodium Chloride (NS Flush) 2 ml BID IV FLUSH ; Start 02/26/17 at 21:00; Stop at 21:00; Status DC Spironolactone (Aldactone) 50 mg DAILY PO Last administered on 03/05/17 08:06 ; Start 02/28/17 at 09:00 Sucralfate (Carafate Liq) 1 gm ACHS PO Last administered on 03/05/17 11:08; Start 03/02/17 at 21:00 Timolol Maleate (Timoptic 0.5% Opth Soln) 1 drop Q12HR EACH EYE Last administered on 03/04/17 21:09; Start 02/26/17 at 21:00 Urinary Catheter: No Vascular Central Line Catheter: No A/P Assessment and Plan 66 year old male with a past history of Parkinsons, HTN, PE, CHF who presented to the ED due to right sided weakness. Right-sided weakness persisting. Past history of right-sided hemiplegia, reported to have had an episode similar to this a few years ago. PE workup negative. CVA workup unremarkable. Cardiac workup unremarkable. Medically clear for discharge 03/04. Discharge Planning Patient has been cleared by neurology. Psychiatric evaluation showed no concerns. Pt medically cleared for discharge, discharged 03/04. CM to assist as pt refusing return to [place] (he has been there since 2012). There is an evaluation in place for new SNF today. Problem List: (1) Hemiplegia ICD Codes: G81.90 - Hemiplegia, unspecified affecting unspecified side Status: Resolved Plan: Patient presented with right-sided cassi-plegia, resolved. No other focal neurological deficits noted. CT head without acute process, head MRA unremarkable, brain MRI unremarkable, neck MRA unremarkable. * Neurology consulted, appreciate recommendations, cleared patient neurologically * Psychiatry consulted, cleared patient * MRI brain, C-spine, Unremarkable for acute process * Neuro checks every 4hr, no acute changes this admission * Telemetry, discontinue * ACS ruled out on admission, troponin 0.02, 0.04, 0.05, no acute ischemic changes on EKG * 2-D echo EF 55-60% * Chemical stress test unremarkable * Came from [facility], [facility], will likely return Imaging: Brain MRI: Unremarkable. No evidence of acute ischemia Brain MRA: Unremarkable. No evidence for large vessel occlusion or significant intracranial stenosis Neck MRA: Unremarkable carotid exam. Head CT: No acute intracranial abnormality Carotid US: No hemodynamically significant stenosis (2) Chest tightness or pressure ICD Codes: R07.89 - Other chest pain Status: Resolved Plan: Intermittent. Workup negative. Given sucralfate helped, likely GERD. We' ll add Protonix today. Also may benefit from Tums PRN Hospital Course: Hx CHF, HTN, sedentary. Given CAD hx, workup initiated including stat EKG, which shows no evidence of ST changes but does show worsened AV conduction. PE workup negative on admission. * Cardiac enzymes within normal limits * Chest x-ray with compensated cardiomegaly otherwise negative * Echocardiogram ordered 02/26 EF 55-60% * Cardiology consulted to assist in management, cardiac stress test within normal limits * Cont ASA, also on Plavix for hx DVT * Nitrate SL PRN, morphine if needed (3) Back pain ICD Codes: M54.9 - Dorsalgia, unspecified Status: Chronic Plan: Patient complains of back pain which he reports is similar to when he had a pulmonary embolism past. Well's score 4.5, Perc score 2 * Currently on Xarelto, ASA initiated * No signs or symptoms of DVT at this time * CTA without sign of pulmonary embolism Imaging: Chest CTA: No evidence of pulmonary embolism. 19mm right lower lobe nodule. Malignancy is not excluded. PET/CT scan is recommended for further evaluation, counseled patient about findings and need for outpt followup (4) Hypertension ICD Codes: I10 - Hypertension Status: Chronic Plan: Chronic HTN. * Continue home medications * Metoprolol 50 mg daily * Spironolactone 50 mg daily * Furosemide 40 mg twice a day * Metolazone 5 mg daily (5) Parkinson disease ICD Codes: G20 - Parkinson's disease Status: Chronic Plan: History of Parkinson's * Continue carbidopa levodopa 25/100 mg every 8 hours- home medication (6) FEN Plan: Fluids * None, tolerating PO Electrolytes * Monitor and correct as needed Nutrition * Heart healthy diet Prophylaxis * Currently on Xarelto, SCDs * Zofran as needed Candelaria Rose MD R2 Mar 05, 2017 10:47
--- NOTE | 2017-03-05 13:52 | HHI.DS ---
Discharge Summary Admission Date Feb 26, 2017 at 14:28 Discharge Date: Mar 04, 2017 Admitting Diagnosis acute CVA (1) Hemiplegia Diagnosis: Principal Plan: Patient presented with right-sided cassi-plegia, resolved. No other focal neurological deficits noted. CT head without acute process, head MRA unremarkable, brain MRI unremarkable, neck MRA unremarkable. * Neurology consulted, appreciate recommendations, cleared patient neurologically * Psychiatry consulted, cleared patient * MRI brain, C-spine, Unremarkable for acute process * Neuro checks every 4hr, no acute changes this admission * Telemetry, discontinue * ACS ruled out on admission, troponin 0.02, 0.04, 0.05, no acute ischemic changes on EKG * 2-D echo EF 55-60% * Chemical stress test unremarkable * [facility], will likely return Imaging: Brain MRI: Unremarkable. No evidence of acute ischemia Brain MRA: Unremarkable. No evidence for large vessel occlusion or significant intracranial stenosis Neck MRA: Unremarkable carotid exam. Head CT: No acute intracranial abnormality Carotid US: No hemodynamically significant stenosis ICD Codes: G81.90 - Hemiplegia, unspecified affecting unspecified side Status: Resolved (2) Chest tightness or pressure Diagnosis: Secondary Plan: Intermittent. Workup negative. Given sucralfate helped, likely GERD. We' ll add Protonix today. Also may benefit from Tums PRN Hospital Course: Hx CHF, HTN, sedentary. Given CAD hx, workup initiated including stat EKG, which shows no evidence of ST changes but does show worsened AV conduction. PE workup negative on admission. * Cardiac enzymes within normal limits * Chest x-ray with compensated cardiomegaly otherwise negative * Echocardiogram ordered 02/26 EF 55-60% * Cardiology consulted to assist in management, cardiac stress test within normal limits * Cont ASA, also on Plavix for hx DVT * Nitrate SL PRN, morphine if needed ICD Codes: R07.89 - Other chest pain Status: Resolved (3) Back pain Diagnosis: Secondary Plan: Patient complains of back pain which he reports is similar to when he had a pulmonary embolism past. Well's score 4.5, Perc score 2 * Currently on Xarelto, ASA initiated * No signs or symptoms of DVT at this time * CTA without sign of pulmonary embolism Imaging: Chest CTA: No evidence of pulmonary embolism. 19mm right lower lobe nodule. Malignancy is not excluded. PET/CT scan is recommended for further evaluation, counseled patient about findings and need for outpt followup ICD Codes: M54.9 - Dorsalgia, unspecified Status: Chronic (4) Hypertension Diagnosis: Secondary Plan: Chronic HTN. * Continue home medications * Metoprolol 50 mg daily * Spironolactone 50 mg daily * Furosemide 40 mg twice a day * Metolazone 5 mg daily ICD Codes: I10 - Hypertension Status: Chronic (5) Parkinson disease Diagnosis: Secondary Plan: History of Parkinson's * Continue carbidopa levodopa 25/100 mg every 8 hours- home medication ICD Codes: G20 - Parkinson's disease Status: Chronic (6) FEN Diagnosis: Secondary Plan: Fluids * None, tolerating PO Electrolytes * Monitor and correct as needed Nutrition * Heart healthy diet Prophylaxis * Currently on Xarelto, SCDs * Zofran as needed Consultants Neurology Cardiology Psychiatry Procedures Nuclear Stress Test Brief History 66 year old male with a past history of Parkinsons, HTN, PE, CHF who presented to the ED due to right sided weakness. He states he woke up at 4:00 AM this morning and realized he had difficulty moving his right arm and leg. Reports he alerted the staff at his [facility], who advised him to go back to bed. He woke up again at 8:00 AM, and noted a significant headache that felt like a "spike in my head" which lasted for 20 seconds. He has not experienced any headaches since then. He called and spoke with his doctor who stated he believed that the patient had slurred speech at the time and advised to go to the hospital. He believes he may have some blurred vision since this morning. Reports some nausea, no vomiting, fever, chills. Minor neck stiffness. He states he continued have persistent right arm and right leg weakness, similar to an episode he had 3 or 4 years ago which is the reason he is currently in a fdc. He does not believe that was a stroke at the time. States he has good sensation in both arms and legs. He states that at baseline he is typically ambulatory, works out at the gym often. Denies chest pain, shortness of breath, abdominal pain. Notes some pain in his back she states is similar to that time he had a pulmonary embolism years ago. Does not currently compare of calf pain, states he has been ambulatory recently, denies hemoptysis, no recent known malignancy. CBC/BMP: 03/04/17 0724 03/04/17 0724 Significant Findings Laboratory Tests Test 03/04/17 07:24 Blood Urea Nitrogen 48 MG/DL (7-18) Creatinine 1.78 MG/DL (0.60-1.30) Potassium Level 3.0 MEQ/L (3.5-5.1) Estimat Glomerular Filtration Rate 38 ML/MIN (>89) Imaging Last Impressions Myocardial Perfusion Scan Nuc Med 03/01/17 0000 Signed Impressions: Service Date/Time: February 12:08 - CONCLUSION: No evidence of fixed or reversible perfusion abnormalities. Normal wall motion and ejection fraction. RISK CATEGORY: Low (<1%% Annual Mortality Rate) Daryl Benitez MD Cervical Spine MRI 03/01/17 0000 Signed Impressions: Service Date/Time: February 11:04 - CONCLUSION: 1. Degenerative changes in the cervical spine as above. No significant neural foraminal stenosis or spinal stenosis identified. Austyn Valero MD Brain MRI 03/01/17 0000 Signed Impressions: Service Date/Time: February 11:04 - CONCLUSION: 1. Negative examination. Austyn Valero MD Chest X-Ray 02/28/17 0000 Signed Impressions: Service Date/Time: Tuesday, February 28, 2017 10:29 - CONCLUSION: Compensated cardiomegaly otherwise negative Ranjit Valero MD FACR Neck Magnetic Resonance Angiography 02/26/17 1410 Signed Impressions: Service Date/Time: Sunday, February 26, 2017 16:02 - CONCLUSION: 1. Unremarkable carotid MRA examination. No significant flow-limiting stenosis. Ayush Zamora MD Head Magnetic Resonance Angiography 02/26/17 1410 Signed Impressions: Service Date/Time: Sunday, February 26, 2017 16:02 - CONCLUSION: 1. Unremarkable MRA examination of the brain. Specifically, no evidence for large vessel occlusion or significant intracranial stenosis. Ayush Zamora MD Head CT 02/26/17 1222 Signed Impressions: Service Date/Time: Sunday, February 26, 2017 13:26 - CONCLUSION: 1. No acute intracranial abnormality. Ayush Zamora MD Carotid Artery Ultrasound 02/26/17 0000 Signed Impressions: Service Date/Time: Sunday, February 26, 2017 18:48 - CONCLUSION: No evidence of hemodynamically significant lesion. Juan Antonio Watson MD CT Angiography 02/26/17 0000 Signed Impressions: Service Date/Time: Sunday, February 26, 2017 19:45 - CONCLUSION: 1. No evidence of pulmonary embolism. 2. 19 mm right lower lobe nodule. Malignancy is not excluded. PET/CT scan is recommended to further evaluation if clinically indicated. Juan Antonio Watson MD PE at Discharge GENERAL: This is a well-nourished, well-developed patient, lying in bed in no apparent distress. SKIN: No rashes, ecchymoses or lesions. Warm, mildly diaphoretic. HEAD: Atraumatic. Normocephalic. EYES: Extraocular motions intact. No scleral icterus. No injection or drainage. Visual [place] intact. ENT: Nose without bleeding, purulent drainage or septal hematoma. Uvula midline. Airway patent. NECK: Trachea midline. No JVD or lymphadenopathy. CARDIOVASCULAR: Regular rate and rhythm without murmurs, gallops, or rubs. RESPIRATORY: Clear to auscultation. Breath sounds equal bilaterally. No wheezes , rales, or rhonchi. GASTROINTESTINAL: Abdomen soft, non-tender, nondistended. No guarding. MUSCULOSKELETAL: Extremities without clubbing, cyanosis, or edema. NEUROLOGICAL: Awake and alert. Cranial nerves II through XII intact. Sensory grossly within normal limits bilaterally in arms and legs. Five out of 5 muscle strength on left side, 5/5 in right arm and leg. Normal speech. Hospital Course Patient is a 66 year old male with a past history of Parkinson's, HTN, PE, CHF who presented to the ED due to right sided weakness. Right-sided weakness persisting. Past history of right-sided hemiplegia, reported to have had an episode similar to this a few years ago. PE workup negative. CVA workup unremarkable. Cardiac workup unremarkable. Medically clear for discharge 03/04. Patient has been cleared by neurology. Psychiatric evaluation showed no concerns. Pt medically cleared for discharge, discharged 03/04. CM to assist as pt initially refused return to [place] but did agree to go on 03/05. PET/CT scan is recommended for further evaluation, counseled patient about findings and need for outpt followup Pt Condition on Discharge: Stable Discharge Disposition: Discharge to SNF Discharge Instructions DIET: Follow Instructions for: Heart Healthy Diet Activities you can perform: Regular-No Restrictions Other Activity Instructions: PT and OT evaluation and treatment Follow up Referrals: Cardiology - 1 Week with Ziggy Wright D.o. Neurology - 1 Week with Juan Antonio Akins MD PCP Follow-up - 1 Week New Medications: Aspirin DR (Adult Aspirin EC Low Strength) 81 Mg Tabec 81 MG PO DAILY, #30 TAB Atorvastatin (Lipitor) 10 Mg Tab 10 MG PO DAILY, #30 TAB Continued Medications: Brimonidine-Timolol Opth Drops (Combigan Opth Drops) 0.2-0.5% Soln 1 DROP EACH EYE Q12HR for Glaucoma, #1 BOTTLE 0 Refills (This prescription has been renewed) Carbidopa-Levodopa (Sinemet) 25-100 Mg Tab 1 TAB PO Q8HR for Parkinson Disease Mgmt, #90 TAB 0 Refills (This prescription has been renewed) Cholecalciferol (Vitamin D3) 1,000 Unit Tab 1000 UNITS PO DAILY for Nutritional Supplement, #1 BOTTLE 0 Refills (This prescription has been renewed) Furosemide (Furosemide) 40 Mg Tab 40 MG PO BID, #60 TAB 0 Refills (This prescription has been renewed) Ibuprofen (Ibuprofen) 600 Mg Tab 600 MG PO Q6H PRN for Pain/Inflammation, #40 TAB 0 Refills Latanoprost Opth Drops (Latanoprost Opth Drops) 0.005% Drops 1 DROP EACH EYE HS for Glaucoma, #2.5 ML 0 Refills (This prescription has been renewed) Refrigerate until opened. Metolazone (Metolazone) 5 Mg Tab 5 MG PO DAILY, #30 TAB 0 Refills (This prescription has been renewed) Metoprolol Succinate ER 24 HR (Metoprolol Succinate ER 24 HR) 50 Mg Tab 50 MG PO DAILY, #30 TAB 0 Refills (This prescription has been renewed) Minoxidil (Minoxidil) 10 Mg Tab 20 MG PO DAILY for Blood Pressure Management, #30 TAB 0 Refills (This prescription has been renewed) Oxycodone (Oxycodone) 10 Mg Tab 10 MG PO Q4H PRN for PAIN, #15 TAB 0 Refills (This prescription has been renewed ) Pentoxifylline ER (Pentoxifylline ER) 400 Mg Tab 400 MG PO TID for Intermittent claudication, #90 TAB 0 Refills (This prescription has been renewed) Pramipexole (Pramipexole) 0.25 Mg Tab 0.25 MG PO TID for Parkinson Disease Mgmt, #90 TAB 0 Refills (This prescription has been renewed) Pregabalin (Lyrica) 100 Mg Cap 100 MG PO BID, #60 CAP 0 Refills (This prescription has been renewed) Rivaroxaban (Xarelto) 20 Mg Tab 20 MG PO DAILY for Blood Clot Prevention, #30 TAB 0 Refills (This prescription has been renewed) Spironolactone (Aldactone) 50 Mg Tab 50 MG PO DAILY, #30 TAB 0 Refills (This prescription has been renewed) Terazosin (Terazosin) 5 Mg Cap 5 MG PO HS, #30 CAP 0 Refills (This prescription has been renewed) Tizanidine (Tizanidine) 2 Mg Cap 1 MG PO TID for Muscle Spasm, #30 CAP 0 Refills (This prescription has been renewed) Candelaria Rose MD R2 Mar 05, 2017 13:52
[2017-03-05] MEDS ORDERED: VITA100018 PO (13:58)
[2017-03-05] MEDS ORDERED: SINE25TA PO (13:58)
[2017-03-05] MEDS ORDERED: LYRI100C PO (13:58)
[2017-03-05] MEDS ORDERED: COMB0.2S EACH EYE (13:58)
[2017-03-05] MEDS ORDERED: TERA5CAP3 PO (13:58)
[2017-03-05] MEDS ORDERED: PRAM0.25 PO (13:58)
[2017-03-05] MEDS ORDERED: METO5TAB3 PO (13:58)
[2017-03-05] MEDS ORDERED: TIZA2CAP3 PO (13:58)
[2017-03-05] MEDS ORDERED: PENT400T PO (13:58)
[2017-03-05] MEDS ORDERED: ALDA50TA2 PO (13:58)
[2017-03-05] MEDS ORDERED: METO50TA11 PO (13:58)
[2017-03-05] MEDS ORDERED: LATA0.002 EACH EYE (13:58)
[2017-03-05] MEDS ORDERED: FURO40TA PO (13:58)
[2017-03-05] MEDS ORDERED: MINO10TA PO (13:58)
[2017-03-05] MEDS ORDERED: XARE20TA PO (13:58)
[2017-03-05] MEDS ORDERED: OXYC-395 PO (13:58)
[2017-03-05 14:27] VITALS: BP 117/74; PULSE 68; RESP 16; TEMP 97.4; O2SAT 98
== END 2017-03-05 16:46 | DRG 57 ==
LOC: NEPE 10:17 → NEDA 14:28 → N05A 17:31
PROVIDERS: ADMIT Family Medicine; ATTEND Family Medicine
DX: G81.91 Hemiplegia, unspecified affecting right dominant side (principal); N17.9 Acute kidney failure, unspecified; G20 Parkinson's disease; I11.0 Hypertensive heart disease with heart failure; I50.9 Heart failure, unspecified; I48.0 Paroxysmal atrial fibrillation; R47.81 Slurred speech; N40.0 Benign prostatic hyperplasia without lower urinary tract symptoms; K21.9 Gastro-esophageal reflux disease without esophagitis; M54.9 Dorsalgia, unspecified; G89.29 Other chronic pain; I49.3 Ventricular premature depolarization; I44.4 Left anterior fascicular block; I20.9 Angina pectoris, unspecified; H53.8 Other visual disturbances; T50.8X5A Adverse effect of diagnostic agents, initial encounter; M19.90 Unspecified osteoarthritis, unspecified site; F32.9 Major depressive disorder, single episode, unspecified; Z79.01 Long term (current) use of anticoagulants; Z82.3 Family history of stroke; Z82.49 Family history of ischemic heart disease and other diseases of the circulatory system; Z86.711 Personal history of pulmonary embolism; Z86.718 Personal history of other venous thrombosis and embolism; Z87.891 Personal history of nicotine dependence; Z96.611 Presence of right artificial shoulder joint
CPT/HCPCS: 70450; 70544; 70548; 70551; 70553; 71010; 71275; 72141; 78452; 80048; 80053; 80061; 81001; 82550; 82552; 82948; 83036; 83735; 83880; 84100; 84443; 84484; 85025; 85027; 85610; 85652; 85730; 86140; 93005; 93017; 93306; 93880; 95819; A9502; A9579; J2270; J2405; J2785; J7030; J7040; Q9967

== ENCOUNTER 2017-03-11 17:55 | Inpatient (IN) | payer MEDICARE, OTHER ==
[~2017-03-11] VITALS: Ht 175.3 cm; Wt 94.5 kg
[~2017-03-11 17:55] MED LIST changes: -AMMO12LO TOPICAL; +ASPI-99 PO; -COLA100C3 PO; +LIPI10TA PO; -MELA3CAP PO; -MIRA33504 PO; -MYLASUS2 PO; -NITR1SUB2 SL; -POTA10TA8 PO; -REST30CA PO; -SIME80CH CHEW; +SINE25TA PO; -SYSTSOL9 EACH EYE; -TYLE325T PO
[2017-03-11 18:07] VITALS: BP 78/46; PULSE 67; RESP 16; TEMP 98.8; O2SAT 100
[2017-03-11] MEDS ORDERED: SODIUM CHLOR 0.9% 1000 ML INJ 1,000 ML IV ONE ×2 (18:24→20:30)
[2017-03-11] MEDS ORDERED: SODIUM CHLORIDE 0.9% FLUSH 10 ML FLUSH IVF PRN (18:30)
[2017-03-11] MEDS ORDERED: SENN8.6T81 PO (18:32)
[2017-03-11] MEDS ORDERED: POTA-163 PO (18:32)
[2017-03-11] MEDS ORDERED: MELA5TAB15 PO (18:32)
[2017-03-11] MEDS ORDERED: LISI2.5T3 PO (18:32)
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
--- NOTE | 2017-03-11 19:10 | RADRPT ---
EXAM DATE/TIME: 03/11/2017 18:37 [facility] COMPARISON: CHEST SINGLE AP, February 28, 2017, 10:29. INDICATIONS : Short of breath. MEDICAL HISTORY : None. SURGICAL HISTORY : None. ENCOUNTER: Initial ACUITY: 1 day PAIN SCORE: 0/10 LOCATION: Bilateral chest FINDINGS: A single view of the chest demonstrates the lungs to be symmetrically aerated without evidence of mas s, infiltrate or effusion. The cardiomediastinal contours are unremarkable. Osseous structures are intact with right shoulder replacement. CONCLUSION: 1. No active disease. Postoperative right shoulder replacement. Navdeep Pierce MD on March 11, 2017 at 19:06 Board Certified Radiologist. This report was verified electronically.
[2017-03-11 19:16] LABS: AUTOMATED NEUTROPHIL # 10.8 TH/MM3 (1.8-7.7); BASOPHIL % 0.2 % (0.0-2.0); EOSINOPHIL # 0.2 TH/MM3 (0-0.4); EOSINOPHIL % 1.6 % (0.0-4.0); HEMATOCRIT 36.9 % (39.0-51.0); HEMO FLAGS DIFF FINAL; LYMPH % 5.8 % (9.0-44.0); LYMPHOCYTE # 0.8 TH/MM3 (1.0-4.8); MEAN CELL VOLUME 90.3 FL (80.0-100.0); MEAN CORPUSCULAR HGB CONC 34.3 % (32.0-36.0); MONO % 8.5 % (0.0-8.0); NEUT % 83.9 % (16.0-70.0); PLATELET COUNT 227 TH/MM3 (150-450); RED BLOOD COUNT 4.09 MIL/MM3 (4.50-5.90); RED CELL DISTRIBUTION WIDTH 13.3 % (11.6-17.2); WHITE BLOOD COUNT 12.9 TH/MM3 (4.0-11.0)
[2017-03-11 19:27] LABS: APTT (PATIENT) 25.4 SEC (24.3-30.1); PROTHROMBIN TIME - PATIENT 11.4 SEC (9.8-11.6)
[2017-03-11 20:16] VITALS: BP 99/57; PULSE 85; RESP 18; O2SAT 99
[2017-03-11 20:33] LABS: BACTERIA, URINE RARE /hpf; BLOOD, URINE SMALL (NEG); COMMENT (UR) CULT NOT INDICATED; CULTURE IF INDICATED CULT NOT INDICATED; GLUCOSE,URINE NEG (NEG); HYALINE CAST, URINE 71 /lpf (RARE); KETONE, URINE NEG (NEG); MUCUS URINE FEW /lpf (OCC); NITRITE,URINE NEG (NEG); SQUAMOUS EPITHELIAL CELL URINE 1 /hpf (0-5); URINE COLOR YELLOW (YELLW/STRAW)
[2017-03-11 20:40] LABS: ALT (GPT) 12 U/L (12-78); ANION GAP 10 MEQ/L (5-15); AST (GOT) 54 U/L (15-37); BICARBONATE 22.6 MEQ/L (21.0-32.0); BLOOD UREA NITROGEN 72 MG/DL (7-18); CHLORIDE 103 MEQ/L (98-107); GLOMERULAR FILTRATION RATE 13 ML/MIN (>89); MAGNESIUM 3.4 MG/DL (1.5-2.5); POTASSIUM 3.8 MEQ/L (3.5-5.1); SODIUM (NA) 136 MEQ/L (136-145)
[2017-03-11 20:55] LABS: ALKALINE PHOSPHATASE 58 U/L (45-117); CREATINE KINASE 1691 U/L (39-308); TOTAL BILIRUBIN ADULT 0.4 MG/DL (0.2-1.0)
[2017-03-11 21:06] LABS: CKMB 11.2 NG/ML (0.5-3.6)
--- NOTE | 2017-03-11 21:07 | PD ---
Data Data Last Documented VS Vital Signs Date Time Temp Pulse Resp B/P (MAP) Pulse Ox O2 Delivery O2 Flow Rate FiO2 03/11/17:16 85 18 99/57 (71) 99 Room Air 03/11/17 18:07 98.8 Orders Orders Electrocardiogram (03/11/17 18:24) Complete Blood Count With Diff (03/11/17 18:24) Comprehensive Metabolic Panel (03/11/1724) Magnesium (Mg) (03/11/17:24) Ckmb (Isoenzyme) Profile (03/11/17:24) Troponin I (03/11/17:24) Act Partial Throm Time (Ptt) (03/11/1724) Prothrombin Time / Inr (Pt) (03/11/1724) Urinalysis - C+S If Indicated (03/11/17:24) Chest, Single Ap (03/11/17:24) Ecg Monitoring (03/11/17:24) Iv Access Insert/Monitor (03/11/1724) Oximetry (03/11/17:24) Sodium Chloride 0.9% Flush (Ns Flush) (03/11/17 18:30) Sodium Chlor 0.9% 1000 Ml Inj (Ns 1000 M (03/11/17 18:24) Blood Culture (03/11/17 18:24) Lactic Acid Sepsis Protocol (03/11/17 18:24) Sodium Chlor 0.9% 1000 Ml Inj (Ns 1000 M (03/11/17 20:30) CKMB (03/11/17 20:10) CKMB% (03/11/17 20:10) Drug Screen, Random Urine (03/11/17 20:58) Sodium Chlor 0.9% 1000 Ml Inj (Ns 1000 M (03/11/17 21:09) Admit Order (Ed Use Only) (03/11/17 21:09) Labs Laboratory Tests Test 03/11/17 18:36 03/11/17 18:45 03/11/17 20:10 03/11/17 20:20 White Blood Count 12.9 TH/MM3 Red Blood Count 4.09 MIL/MM3 Hemoglobin 12.7 GM/DL Hematocrit 36.9 % Mean Corpuscular Volume 90.3 FL Mean Corpuscular Hemoglobin 31.0 PG Mean Corpuscular Hemoglobin Concent 34.3 % Red Cell Distribution Width 13.3 % Platelet Count 227 TH/MM3 Mean Platelet Volume 9.1 FL Neutrophils (%) (Auto) 83.9 % Lymphocytes (%) (Auto) 5.8 % Monocytes (%) (Auto) 8.5 % Eosinophils (%) (Auto) 1.6 % Basophils (%) (Auto) 0.2 % Neutrophils # (Auto) 10.8 TH/MM3 Lymphocytes # (Auto) 0.8 TH/MM3 Monocytes # (Auto) 1.1 TH/MM3 Eosinophils # (Auto) 0.2 TH/MM3 Basophils # (Auto) 0.0 TH/MM3 CBC Comment DIFF FINAL Differential Comment Prothrombin Time 11.4 SEC Prothromb Time International Ratio 1.0 RATIO Activated Partial Thromboplast Time 25.4 SEC Lactic Acid Level 1.2 mmol/L Blood Urea Nitrogen 72 MG/DL Creatinine 4.65 MG/DL Random Glucose 94 MG/DL Total Protein 6.1 GM/DL Albumin 3.1 GM/DL Calcium Level 8.6 MG/DL Magnesium Level 3.4 MG/DL Alkaline Phosphatase 58 U/L Aspartate Amino Transf (AST/SGOT) 54 U/L Alanine Aminotransferase (ALT/SGPT) 12 U/L Total Bilirubin 0.4 MG/DL Sodium Level 136 MEQ/L Potassium Level 3.8 MEQ/L Chloride Level 103 MEQ/L Carbon Dioxide Level 22.6 MEQ/L Anion Gap 10 MEQ/L Estimat Glomerular Filtration Rate 13 ML/MIN Total Creatine Kinase 1691 U/L Creatine Kinase MB 11.2 NG/ML Troponin I 0.03 NG/ML Urine Color YELLOW Urine Turbidity HAZY Urine pH 5.0 Urine Specific [place] 1.016 Urine Protein 30 mg/dL Urine Glucose (UA) NEG mg/dL Urine Ketones NEG mg/dL Urine Occult Blood SMALL Urine Nitrite NEG Urine Bilirubin NEG Urine Urobilinogen LESS THAN 2.0 MG/DL Urine Leukocyte Esterase NEG Urine RBC 1 /hpf Urine WBC 2 /hpf Urine Squamous Epithelial Cells 1 /hpf Urine Amorphous Sediment RARE Urine Bacteria RARE /hpf Urine Hyaline Casts 71 /lpf Urine Mucus FEW /lpf Microscopic Urinalysis Comment CULT NOT INDICATED MDM Supervised Visit with TONNY: No Narrative Course The patient was initially evaluated by the previous provider and signed out to me at the beginning of my shift pending labs and disposition. See her note for further details. Briefly this is a 66-year-old male who was admitted earlier this month and diagnosed with TIAs, presents today for evaluation of feeling dizzy, weak, and near syncopal. Blood pressure upon arrival was 70/40. On my assessment the patient is awake and alert, however is complaining of feeling weak and having slight blurred vision. He has no focal deficits on exam. Initial vital signs show heart rate 67, blood pressure 78/46, pulse ox 100% on room air, oral temp of 98.8F. Patient's blood pressure improved to 99/57 after a liter of normal saline IV. CBC: WBC 12.9, hemoglobin 12.7, hematocrit 36.9, platelets 227, neutrophils 83.9 %. CMP is remarkable for BUN 72, creatinine 4.65, GFR 13. Patient's baseline creatinine is around 1.7. Total CK is 1691. Patient denies any fevers or recent illness. He denies any new medications. He denies illicit drug use. He reports that he had a stress test about a week ago and states that it was normal. He was made aware of all findings and was written for a second liter of normal saline IV. He will be admitted for further treatment and evaluation of acute on chronic renal insufficiency, rhabdomyolysis, hypotension. Case discussed with hospitalist Dr. Acuna who will admit the patient to her service. Diagnosis Primary Impression: Acute on chronic renal insufficiency Additional Impressions: Rhabdomyolysis Qualified Codes: M62.82 - Rhabdomyolysis Generalized weakness Hypotension Qualified Codes: I95.9 - Hypotension, unspecified Admitting Information Admitting Physician Requests: Admit Hema San MD Mar 11, 2017 21:07
[2017-03-11] MEDS ORDERED: SODIUM CHLOR 0.9% 1000 ML INJ 1,000 ML IV SCH (21:09)
[2017-03-11] MEDS: SODIUM CHLOR 0.9% 1000 ML INJ 1,000 ML IV SCH (21:49)
--- NOTE | 2017-03-11 21:53 | HHI.HP ---
[facility] Service [facility] Primary Care Physician Juan Antonio Kenney MD Admission Diagnosis ARNOLD, rhabdomyolysis, hypotension Diagnoses: (1) Generalized weakness Diagnosis: Principal (2) ARNOLD (acute kidney injury) Diagnosis: Principal (3) Rhabdomyolysis Diagnosis: Principal (4) Hypotension Diagnosis: Principal (5) Leukocytosis Diagnosis: Principal (6) Parkinson disease Diagnosis: Principal Travel History International Travel<30 Days: No Contact w/Intl Traveler <30 Da: No Traveled to Known Affected Are: No History of Present Illness This is a 66-year-old male with a PMH of HTN, Parkinson's Disease, h/o DVT/PE on Xarelto and Chronic Back Pain who was sent to the ER from Rehab secondary to c/o generalized weakness and dizziness w/ near syncopal event. Denies fever, chills, nausea, vomiting or diarrhea. Recent admit 02/26-03/05/17 for TIA w/ Right-Sided Hemiplegia, resolved, s/p Neurology eval w/ negative imaging. D/c' d to [facility]. On arrival, BP 78/46, HR 67, O2 sat are percent on RA, Afebrile. S/p IVF w/ repeat BP 99/57, HR 85. WBC 12.9. Creatinine 4.65 , previously 1.78 on 03/04/17. CPK 1691. Troponin negative. INR 1.0. UA negative. Urine Drug Screen negative. CXR with no acute findings. Review of Systems Except as stated in HPI: all other systems reviewed are Neg ROS: 14 point review of systems otherwise negative. Past Family Social History Past Medical History PMH: HTN, Parkinson's Disease, h/o DVT/PE on Xarelto and Chronic Back Pain Past Surgical History PAST SURGICAL HISTORY: Cataract Surgery, Right Shoulder Surgery, Bilateral Hernia Repair, Right Wrist Surgery Allergies: Coded Allergies: gabapentin (Unverified Allergy, Severe, TACHYCARDIA, 03/11/17) Family History PAST FAMILY HISTORY: Reviewed. No h/o DM or CAD Social History PAST SOCIAL HISTORY: Negative for alcohol, tobacco or drugs. Physical Exam Vital Signs Vital Signs Date Time Temp Pulse Resp B/P (MAP) Pulse Ox O2 Delivery O2 Flow Rate FiO2 03/11/17 20:16 85 18 99/57 (71) 99 Room Air 03/11/17 18:07 98.8 67 16 78/46 (57) 100 Physical Exam PE: GENERAL: Middle-aged white male in no acute distress, appears older than stated age. HEENT: PERRLA, EOMI. No scleral icterus or conjunctival pallor. No lid lag or facial droop. CARDIOVASCULAR: Regular rate and rhythm. No obvious murmurs to auscultation. No chest tenderness to palpation. RESPIRATORY: No obvious rhonchi or wheezing. Clear to auscultation. Breath sounds equal bilaterally. GASTROINTESTINAL: Abdomen soft, non-tender, nondistended. BS normal. MUSCULOSKELETAL: Extremities without clubbing, cyanosis, or edema. No obvious deformities. NEUROLOGICAL: Awake, alert and oriented x4. No focal neurologic deficits. Moving both upper and lower extremities spontaneously. Laboratory Laboratory Tests Test 03/11/17 18:36 03/11/17 18:45 03/11/17 20:10 03/11/17 20:20 White Blood Count 12.9 Red Blood Count 4.09 Hemoglobin 12.7 Hematocrit 36.9 Mean Corpuscular Volume 90.3 Mean Corpuscular Hemoglobin 31.0 Mean Corpuscular Hemoglobin Concent 34.3 Red Cell Distribution Width 13.3 Platelet Count 227 Mean Platelet Volume 9.1 Neutrophils (%) (Auto) 83.9 Lymphocytes (%) (Auto) 5.8 Monocytes (%) (Auto) 8.5 Eosinophils (%) (Auto) 1.6 Basophils (%) (Auto) 0.2 Neutrophils # (Auto) 10.8 Lymphocytes # (Auto) 0.8 Monocytes # (Auto) 1.1 Eosinophils # (Auto) 0.2 Basophils # (Auto) 0.0 CBC Comment DIFF FINAL Differential Comment Prothrombin Time 11.4 Prothromb Time International Ratio 1.0 Activated Partial Thromboplast Time 25.4 Lactic Acid Level 1.2 Blood Urea Nitrogen 72 Creatinine 4.65 Random Glucose 94 Total Protein 6.1 Albumin 3.1 Calcium Level 8.6 Magnesium Level 3.4 Alkaline Phosphatase 58 Aspartate Amino Transf (AST/SGOT) 54 Alanine Aminotransferase (ALT/SGPT) 12 Total Bilirubin 0.4 Sodium Level 136 Potassium Level 3.8 Chloride Level 103 Carbon Dioxide Level 22.6 Anion Gap 10 Estimat Glomerular Filtration Rate 13 Total Creatine Kinase 1691 Creatine Kinase MB 11.2 Troponin I 0.03 Urine Color YELLOW Urine Turbidity HAZY Urine pH 5.0 Urine Specific [place] 1.016 Urine Protein 30 Urine Glucose (UA) NEG Urine Ketones NEG Urine Occult Blood SMALL Urine Nitrite NEG Urine Bilirubin NEG Urine Urobilinogen LESS THAN 2.0 Urine Leukocyte Esterase NEG Urine RBC 1 Urine WBC 2 Urine Squamous Epithelial Cells 1 Urine Amorphous Sediment RARE Urine Bacteria RARE Urine Hyaline Casts 71 Urine Mucus FEW Microscopic Urinalysis Comment CULT NOT INDICATED Urine Opiates Screen NEG Urine Barbiturates Screen NEG Urine Amphetamines Screen NEG Urine Benzodiazepines Screen NEG Urine Cocaine Screen NEG Urine Cannabinoids Screen NEG Date/Time Source Procedure Growth Status 03/11/17 18:40 Blood Peripheral Aerobic Blood Culture Pending Received 03/11/17 18:40 Blood Peripheral Anaerobic Blood Culture Pending Received Result Diagram: 03/11/17 1836 03/11/172009 Caprini VTE Risk Assessment Caprini VTE Risk Assessment: Mod/High Risk (score >= 2) Caprini Risk Assessment Model Point Value = 1 Point Value = 2 Point Value = 3 Point Value = 5 Age 41-60 Minor surgery BMI > 25 kg/m2 Swollen legs Varicose veins or History of unexplained or recurrent spontaneous Oral contraceptives or hormone replacement Sepsis (< 1 month) Serious lung disease, including pneumonia (< 1 month) Abnormal pulmonary function Acute myocardial infarction Congestive heart failure (< 1 month) History of inflammatory bowel disease Medical patient at bed rest Age 61-74 Arthroscopic surgery Major open surgery (> 45 min) Laparoscopic surgery (> 45 min) Malignancy Confined to bed (> 72 hours) Immobilizing plaster cast Central venous access Age >= 75 History of VTE Family history of VTE Factor V Leiden Prothrombin [id number] Lupus anticoagulant Anticardiolipin antibodies Elevated serum homocysteine Heparin-induced thrombocytopenia Other congenital or acquired thrombophilia Stroke (< 1 month) Elective arthroplasty Hip, pelvis, or leg fracture Acute spinal cord injury (< 1 month) Prophylaxis Regimen Total Risk Factor Score Risk Level Prophylaxis Regimen 0-1 Low Early ambulation 2 Moderate Order ONE of the following: *Sequential Compression Device (SCD) *Heparin 5000 units SQ BID 3-4 Higher Order ONE of the following medications: *Heparin 5000 units SQ TID *Enoxaparin/Lovenox 40 mg SQ daily (WT < 150 kg, CrCl > 30 mL/min) *Enoxaparin/Lovenox 30 mg SQ daily (WT < 150 kg, CrCl > 10-29 mL/min) *Enoxaparin/Lovenox 30 mg SQ BID (WT < 150 kg, CrCl > 30 mL/min) AND/OR *Sequential Compression Device (SCD) 5 or more Highest Order ONE of the following medications: *Heparin 5000 units SQ TID (Preferred with Epidurals) *Enoxaparin/Lovenox 40 mg SQ daily (WT < 150 kg, CrCl > 30 mL/min) *Enoxaparin/Lovenox 30 mg SQ daily (WT < 150 kg, CrCl > 10-29 mL/min) *Enoxaparin/Lovenox 30 mg SQ BID (WT < 150 kg, CrCl > 30 mL/min) AND *Sequential Compression Device (SCD) Assessment and Plan Problem List: (1) Generalized weakness ICD Code: R53.1 - Weakness (2) ARNOLD (acute kidney injury) ICD Code: N17.9 - Acute kidney failure, unspecified (3) Rhabdomyolysis ICD Code: M62.82 - Rhabdomyolysis Status: Acute (4) Leukocytosis ICD Code: D72.829 - Elevated white blood cell count, unspecified (5) Hypotension ICD Code: I95.9 - Hypotension, unspecified (6) Parkinson disease ICD Code: G20 - Parkinson's disease Assessment and Plan A/P: 1. Generalized Weakness: Likely multifactorial-secondary to dehydration/ deconditioning. PT for eval/tx. Recent admit for right-sided hemiplegia, resolved, no new focal neurologic deficits at this time. 2. ARNOLD: Creatinine 4.65, previously 1.78 on 03/04/17. IVF for hydration. UA negative. Repeat labs in am. Renal US, Nephrology consult as needed. 3. Rhabdomyolysis: CPK 1691. IVF for hydration, check serial CPK for trend. Urine Drug Screen negative. 4. Leukocytosis: WBC 12. No obvious source of infection. Afebrile. CXR w/ no acute findings, images reviewed by me. U/a negative. Will monitor. Repeat labs in am. 5. Hypotension: BP 70's on arrival, responsive to IVF, repeat BP 99/57, HR 85. Give additional bolus, maintenance IVF, hold BP medications. 6. Parkinson's Disease: at baseline, resume home medications. 7. DVT Prophylaxis: On Xarelto for h/o DVT/PE, will continue. 8. Social work for DC planning as needed. 9. His discussed at length with ER physician. Physician Certification 2 Midnight Certification Type: Admission for Inpatient Services Order for Inpatient Services The services are ordered in accordance with Medicare regulations or non- Medicare payer requirements, as applicable. In the case of services not specified as inpatient-only, they are appropriately provided as inpatient services in accordance with the 2-midnight benchmark. Estimated LOS (days): 2 days is the estimated time the patient will need to remain in the hospital, assuming treatment plan goals are met and no additional complications. Post-Hospital Plan: Not yet determined Problem Qualifiers (1) Rhabdomyolysis: Qualified Codes: M62.82 - Rhabdomyolysis Rhea Acuna MD Mar 11, 2017 21:52
[2017-03-11] MEDS ORDERED: ONDANSETRON HCL 4 MG/2 ML VIAL IVP PRN (22:00)
[2017-03-11] MEDS ORDERED: ACETAMINOPHEN 325 MG TAB PO PRN (22:00)
[2017-03-11] MEDS ORDERED: MAGNESIUM HYDROXIDE SUSP 30 ML CUP PO PRN (22:00)
[2017-03-11] MEDS ORDERED: BISACODYL 10 MG SUPP RECTAL PRN (22:00)
[2017-03-11] MEDS ORDERED: SENNOSIDES 8.6 MG TAB PO PRN (22:00)
[2017-03-11] MEDS ORDERED: SODIUM CHLORIDE 0.9% FLUSH 10 ML FLUSH IV FLUSH PRN (22:00)
[2017-03-11] MEDS ORDERED: LACTULOSE SYRUP 20 GM/30 ML CUP PO PRN (22:00)
[2017-03-11 23:07] VITALS: BP 95/52; PULSE 87; RESP 16; O2SAT 99
[2017-03-11 23:46] VITALS: PULSE 79
[2017-03-12] VITALS (15 sets, daily range): BP systolic 78–182; BP diastolic 36–84; PULSE 65–83; RESP 17–18; TEMP 98.2–99.1; O2SAT 94–99
[2017-03-12] MEDS: CARBIDOPA/LEVODOPA 25 MG/100 MG TAB PO SCH ×4 (00:09→22:51)
[2017-03-12] MEDS ORDERED: SODIUM CHLOR 0.9% 1000 ML INJ 1,000 ML IV ONE ×2 (01:00→04:45)
[2017-03-12] MEDS: SODIUM CHLOR 0.9% 1000 ML INJ 1,000 ML IV SCH ×3 (05:40→23:53)
[2017-03-12] MEDS ORDERED: SODIUM CHLORID 0.9% 500 ML INJ 500 ML IV ONE (06:00)
[2017-03-12 08:12] LABS: AUTOMATED NEUTROPHIL # 6.5 TH/MM3 (1.8-7.7); BASOPHIL % 0.4 % (0.0-2.0); EOSINOPHIL # 0.3 TH/MM3 (0-0.4); EOSINOPHIL % 3.7 % (0.0-4.0); HEMATOCRIT 33.5 % (39.0-51.0); HEMO FLAGS DIFF FINAL; LYMPH % 10.3 % (9.0-44.0); LYMPHOCYTE # 0.9 TH/MM3 (1.0-4.8); MEAN CELL VOLUME 89.3 FL (80.0-100.0); MEAN CORPUSCULAR HEMOGLOBIN 30.9 PG (27.0-34.0); MEAN CORPUSCULAR HGB CONC 34.7 % (32.0-36.0); MONO % 11.5 % (0.0-8.0); NEUT % 74.1 % (16.0-70.0); PLATELET COUNT 230 TH/MM3 (150-450); RED BLOOD COUNT 3.76 MIL/MM3 (4.50-5.90); RED CELL DISTRIBUTION WIDTH 12.6 % (11.6-17.2); WHITE BLOOD COUNT 8.8 TH/MM3 (4.0-11.0)
[2017-03-12] MEDS: PREGABALIN 25 MG CAP PO SCH (08:14)
[2017-03-12] MEDS: ASPIRIN EC 81 MG TABEC PO SCH (08:14)
[2017-03-12] MEDS: RIVAROXABAN 20 MG TAB PO SCH (08:14)
[2017-03-12] MEDS: PRAMIPEXOLE DIHYDROCHLORIDE 0.25 MG TAB PO SCH ×3 (08:17→17:49)
[2017-03-12] MEDS: METOPROLOL SUCCINATE 50 MG EXTENDED RELEASE TAB PO SCH (08:20)
[2017-03-12] MEDS: DOCUSATE SODIUM 50 MG/SENNA 8.6 MG TAB PO SCH ×2 (08:20→21:00)
[2017-03-12] MEDS: SODIUM CHLORIDE 0.9% FLUSH 10 ML FLUSH IV FLUSH SCH ×2 (08:21→21:00)
[2017-03-12] MEDS ORDERED: ATORVASTATIN 10 MG TAB PO SCH (09:00)
[2017-03-12] MEDS ORDERED: BRIMONIDINE TIMOLOL OPTH EACH EYE SCH (09:00)
[2017-03-12] MEDS ORDERED: PREGABALIN 100 MG CAP PO SCH (09:00)
[2017-03-12 09:23] LABS: ANION GAP 10 MEQ/L (5-15); AST (GOT) 52 U/L (15-37); BICARBONATE 24.2 MEQ/L (21.0-32.0); BLOOD UREA NITROGEN 69 MG/DL (7-18); CHLORIDE 107 MEQ/L (98-107); GLOMERULAR FILTRATION RATE 15 ML/MIN (>89); POTASSIUM 3.8 MEQ/L (3.5-5.1); SODIUM (NA) 141 MEQ/L (136-145)
[2017-03-12 09:37] LABS: ALKALINE PHOSPHATASE 57 U/L (45-117); ALT (GPT) 11 U/L (12-78); CREATINE KINASE 1587 U/L (39-308); TOTAL BILIRUBIN ADULT 0.3 MG/DL (0.2-1.0)
[2017-03-12 09:58] LABS: CKMB 8.2 NG/ML (0.5-3.6)
--- NOTE | 2017-03-12 10:25 | EKG ---
Date Performed: 03/11/2017 Time Performed: 18:44:56 PTAGE: 66 years EKG: Sinus rhythm WITH FREQUENT SUPRAVENTRICULAR PREMATURE COMPLEXES MARKED LEFT AXIS DEVIATION MODERATE INTRAVENTRICU LAR CONDUCTION DELAY ABNORMAL ECG Compared to prior tracing no significant change PREVIOUS TRACING : 03/02/2017 11.57 DOCTOR: Fausto Briceño Interpretating Date/Time 03/12/2017 10:23:58
--- NOTE | 2017-03-12 12:47 | HHI.PR ---
Subjective Remarks F/U ARNOLD and Rhabdo. No sxs denies SOB dw RN. 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 Objective Vitals Vital Signs Date Time Temp Pulse Resp B/P (MAP) Pulse Ox O2 Delivery O2 Flow Rate FiO2 03/12/17 09:07 98 Nasal Cannula 1.00 03/12/17 08:20 Nasal Cannula 2.00 03/12/17 08:20 79 03/12/17 05:40 90/42 (58) 03/12/17 04:12 78/36 (50) 03/12/17 04:10 98.6 81 18 88/42 (57) 94 03/12/17 04:10 Room Air 03/12/17 00:00 98.7 83 18 91/53 (66) 97 03/12/17 00:00 Room Air 03/11/17 23:48 03/11/17 23:46 79 03/11/17 23:07 87 16 95/52 (66) 99 Room Air 03/11/17 20:16 85 18 99/57 (71) 99 Room Air 03/11/17 18:07 98.8 67 16 78/46 (57) 100 I/O 03/11/17 03/11/17 03/11/17 03/12/17 03/12/17 03/12/17 07:00 15:00 23:00 07:00 15:00 23:00 Intake Total 3507 ml Output Total 500 ml Balance 3007 ml Intake Oral 580 ml IV Total 2927 ml Output Urine Total 500 ml # Bowel Movements 0 Result Diagram: 03/12/1772403/12/17724 Imaging Last Impressions Chest X-Ray 03/11/171823 Signed Impressions: Service Date/Time: Saturday, March 11, 2017 18:37 - CONCLUSION: 1. No active disease. Postoperative right shoulder replacement. Navdeep Pierce MD Objective Remarks GENERAL: Middle-aged white male in no acute distress, appears older than stated age. HEENT: PERRLA, EOMI. No scleral icterus or conjunctival pallor. No lid lag or facial droop. CARDIOVASCULAR: Regular rate and rhythm. No obvious murmurs to auscultation. No chest tenderness to palpation. RESPIRATORY: No obvious rhonchi or wheezing. Clear to auscultation. Breath sounds equal bilaterally. GASTROINTESTINAL: Abdomen soft, non-tender, nondistended. BS normal. MUSCULOSKELETAL: Extremities without clubbing, cyanosis, or edema. No obvious deformities. NEUROLOGICAL: Awake, alert and oriented x4. Baseline slight weakness RUE and RLE Procedures none A/P Problem List: (1) Generalized weakness ICD Code: R53.1 - Weakness (2) ARNOLD (acute kidney injury) ICD Code: N17.9 - Acute kidney failure, unspecified (3) Rhabdomyolysis ICD Code: M62.82 - Rhabdomyolysis Status: Acute (4) Leukocytosis ICD Code: D72.829 - Elevated white blood cell count, unspecified (5) Hypotension ICD Code: I95.9 - Hypotension, unspecified (6) Parkinson disease ICD Code: G20 - Parkinson's disease Assessment and Plan 1. Generalized Weakness: Likely multifactorial-secondary to dehydration/ deconditioning. Ct PT for eval/tx. 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 ARNOLD/CKD 3: Creatinine 4.65, previously 1.78 on 03/04/17. IVF for hydration. UA negative. Repeat labs in am. Renal US, Nephrology consult as needed. Monitor for overload hx CHF 3. Rhabdomyolysis: CPK 1691. IVF for hydration, check serial CPK for trend. Urine Drug Screen negative. Dc statin 4. Leukocytosis: WBC 12. No obvious source of infection. Afebrile. CXR w/ no acute findings, images reviewed by me. U/a negative. Will monitor. Repeat labs in am. 5. Hypotension: BP 70's on arrival, responsive to IVF, repeat BP 99/57, HR 85. Give additional bolus, maintenance IVF, hold BP medications. Improving 6. Parkinson's Disease: at baseline, resume home medications. 7. DVT Prophylaxis: On Xarelto for h/o DVT/PE, will continue. Discharge Planning not ready for dc Problem Qualifiers (1) Rhabdomyolysis: Qualified Codes: M62.82 - Rhabdomyolysis aJir Blanchard MD Mar 12, 2017 12:47
[2017-03-12] MEDS: TERAZOSIN HCL 5 MG CAP PO SCH (22:51)
--- NOTE | 2017-03-12 23:20 | RADRPT ---
EXAM DATE/TIME: 03/12/2017 22:35 [facility] COMPARISON: No previous studies available for comparison. INDICATIONS : Increased BUN and creatinine. MEDICAL HISTORY : Arthritis. Parkinson's. Congestive heart failure. Hypertension. Tinnitus. Neck pain. Head trauma. Dizziness. Headache. Numbness. Pleural effusion. Chest pain. Gastroesophageal reflux disease. Noctur ia. SURGICAL HISTORY : Cataract extraction. Teeth extractions. Inguinal hernia repair. Right shoulder replacement. ENCOUNTER: Initial ACUITY: 1 day PAIN SCORE: 0/10 LOCATION: Bilateral flank MEASUREMENTS: RIGHT KIDNEY: 11.5 x 4.8 x 5.7 cm LEFT KIDNEY: 12.0 x 5.5 x 6.8 cm FINDINGS: RIGHT KIDNEY: Renal cortex is normal in thickness and echotexture. No hydronephrosis, stone, or mass. LEFT KIDNEY: Renal cortex is normal in thickness and echotexture. No hydronephrosis or mass. Echogenic focus low er pole measures 4 x 5 x 3 mm. BLADDER: Within normal limits given the degree of distension. Mildly prominent prostate which protrudes into t he urinary bladder. CONCLUSION: 1. Kidneys appear unremarkable, with the exception of a possible lower pole left renal calculus measu ring 5 mm. 2. Prostatic hypertrophy which partially protrudes into the base of the bladder. Issac Chau MD on March 12, 2017 at 23:03 Board Certified Radiologist. This report was verified electronically.
[2017-03-12] MEDS: LATANOPROST 0.005% OPHT SOLN 2.5 ML BTL EACH EYE SCH (23:53)
[2017-03-13] VITALS (7 sets, daily range): BP systolic 94–178; BP diastolic 52–83; PULSE 66–110; RESP 18–24; TEMP 97.7–99.1; O2SAT 95–98
[2017-03-13] MEDS: CARBIDOPA/LEVODOPA 25 MG/100 MG TAB PO SCH ×3 (06:17→21:14)
[2017-03-13 08:43] LABS: BICARBONATE 26.6 MEQ/L (21.0-32.0); MAGNESIUM 2.9 MG/DL (1.5-2.5); POTASSIUM 3.4 MEQ/L (3.5-5.1)
[2017-03-13] MEDS: SODIUM CHLORIDE 0.9% FLUSH 10 ML FLUSH IV FLUSH SCH ×2 (09:00→21:00)
[2017-03-13 09:23] LABS: CKMB 3.9 NG/ML (0.5-3.6)
[2017-03-13] MEDS: METOPROLOL SUCCINATE 50 MG EXTENDED RELEASE TAB PO SCH (09:43)
[2017-03-13] MEDS: ASPIRIN EC 81 MG TABEC PO SCH (09:43)
[2017-03-13] MEDS: PREGABALIN 25 MG CAP PO SCH (09:43)
[2017-03-13] MEDS: RIVAROXABAN 20 MG TAB PO SCH (09:44)
[2017-03-13] MEDS: DOCUSATE SODIUM 50 MG/SENNA 8.6 MG TAB PO SCH ×2 (09:44→21:14)
[2017-03-13] MEDS: PRAMIPEXOLE DIHYDROCHLORIDE 0.25 MG TAB PO SCH ×3 (09:44→15:24)
--- NOTE | 2017-03-13 11:56 | HHI.PR ---
Subjective Remarks Follow-up acute kidney injury and rhabdomyolysis. Complains of weakness. Discussed with RN Objective Vitals Vital Signs Date Time Temp Pulse Resp B/P (MAP) Pulse Ox O2 Delivery O2 Flow Rate FiO2 03/13/17 08:01 99.1 110 18 110/62 (78) 96 03/13/17 08:00 72 03/13/17 08:00 Room Air 03/13/17 04:00 97.7 80 24 142/73 (96) 98 03/13/17 00:00 Room Air 03/13/17 00:00 98.4 79 20 94/52 (66) 95 03/12/17 20:23 74 03/12/17 19:45 98.5 65 18 110/57 (74) 97 03/12/17 19:45 Room Air 03/12/17 16:02 98.2 70 17 102/60 (74) 97 03/12/17 12:00 98.4 72 17 104/62 (76) 99 I/O 03/12/17 03/12/17 03/12/17 03/13/17 03/13/17 03/13/17 07:00 15:00 23:00 07:00 15:00 23:00 Intake Total 3507 ml 2007 ml 1987 ml Output Total 500 ml 1400 ml Balance 3007 ml 2007 ml 587 ml Intake Oral 580 ml 380 ml 930 ml IV Total 2927 ml 1627 ml 1057 ml Output Urine Total 500 ml 1400 ml # Voids 4 # Bowel Movements 0 1 1 Result Diagram: 03/12/17 0725 03/13/17 0705 Imaging Last Impressions Renal Ultrasound 03/12/17 0000 Signed Impressions: Service Date/Time: Sunday, March 12, 2017 22:35 - CONCLUSION: 1. Kidneys appear unremarkable, with the exception of a possible lower pole left renal calculus measuring 5 mm. 2. Prostatic hypertrophy which partially protrudes into the base of the bladder. Issac Chau MD Chest X-Ray 03/11/17 182 Signed Impressions: Service Date/Time: Saturday, March 11, 2017 18:37 - CONCLUSION: 1. No active disease. Postoperative right shoulder replacement. Navdeep Pierce MD Objective Remarks GENERAL: Middle-aged white male in no acute distress, appears older than stated age. HEENT: PERRLA, EOMI. No scleral icterus or conjunctival pallor. No lid lag or facial droop. CARDIOVASCULAR: Regular rate and rhythm. No obvious murmurs to auscultation. No chest tenderness to palpation. RESPIRATORY: No obvious rhonchi or wheezing. Clear to auscultation. Breath sounds equal bilaterally. GASTROINTESTINAL: Abdomen soft, non-tender, nondistended. BS normal. MUSCULOSKELETAL: Extremities without clubbing, cyanosis, or edema. No obvious deformities. NEUROLOGICAL: Awake, alert and oriented x4. Baseline slight weakness RUE and RLE No significant change in PE from previous Procedures none A/P Problem List: (1) Generalized weakness ICD Code: R53.1 - Weakness (2) ARNOLD (acute kidney injury) ICD Code: N17.9 - Acute kidney failure, unspecified (3) Rhabdomyolysis ICD Code: M62.82 - Rhabdomyolysis Status: Acute (4) Leukocytosis ICD Code: D72.829 - Elevated white blood cell count, unspecified (5) Hypotension ICD Code: I95.9 - Hypotension, unspecified (6) Parkinson disease ICD Code: G20 - Parkinson's disease Assessment and Plan 1. Generalized Weakness: Likely multifactorial-secondary to dehydration/ deconditioning/rhabdomyolysis. Ct PT for eval/tx. 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 ARNOLD/CKD 3: Creatinine 4.65, previously 1.78 on 03/04/17. Improving. Decrease IVF . UA negative. Repeat labs in am. Renal US, Nephrology consult as needed. Monitor for overload hx CHF 3. Rhabdomyolysis: CPK 1691. Still significantly elevated continue IVF for hydration, check serial CPK for trend. Urine Drug Screen negative. Dc statin 4. Leukocytosis: WBC 12. No obvious source of infection. Afebrile. CXR w/ no acute findings, images reviewed by me. U/a negative. Will monitor. Repeat labs in am. Improved 5. Hypotension: BP 70's on arrival, responsive to IVF, repeat BP 99/57, HR 85. Give additional bolus, maintenance IVF, hold BP medications. Improving 6. Parkinson's Disease: at baseline, resume home medications. 7. DVT Prophylaxis: On Xarelto for h/o DVT/PE, will continue. Discharge Planning Possible discharge tomorrow Problem Qualifiers (1) Rhabdomyolysis: Qualified Codes: M62.82 - Rhabdomyolysis Jair Blanchard MD Mar 13, 2017 11:56
[2017-03-13] MEDS ORDERED: FURO40TA PO (13:22)
[2017-03-13] MEDS ORDERED: PREG25 PO (13:22)
--- NOTE | 2017-03-13 13:23 | HHI.DCPOC ---
Discharge Care Plan Diagnosis: (1) ARNOLD (acute kidney injury) Your Health Problems Are: Difficulty with ADL Exercise Tolerance Goals to Promote Your Health * To prevent worsening of your condition and complications * To maintain your health at the optimal level Directions to Meet Your Goals Take your medications as prescribed Follow your dietary instruction Follow activity as directed Keep your appointments as scheduled Take your immunizations and boosters as scheduled If your symptoms worsen call your PCP, if no PCP go to Urgent Care Center or Emergency Room Smoking is Dangerous to Your Health. Avoid second hand smoke Call the 24-hour hour crisis hotline for domestic abuse at Jair Blanchard MD Mar 13, 2017 13:23
[2017-03-13] MEDS: SODIUM CHLOR 0.9% 1000 ML INJ 1,000 ML IV SCH (15:25)
[2017-03-13] MEDS: TERAZOSIN HCL 5 MG CAP PO SCH (21:15)
[2017-03-13] MEDS: LATANOPROST 0.005% OPHT SOLN 2.5 ML BTL EACH EYE SCH (21:16)
[2017-03-14] VITALS (11 sets, daily range): BP systolic 102–200; BP diastolic 51–94; PULSE 64–98; RESP 17–20; TEMP 97.6–99.3; O2SAT 95–97
[2017-03-14] MEDS: CARBIDOPA/LEVODOPA 25 MG/100 MG TAB PO SCH ×3 (04:27→20:53)
[2017-03-14] MEDS: METOPROLOL SUCCINATE 50 MG EXTENDED RELEASE TAB PO SCH (04:40)
[2017-03-14] MEDS ORDERED: ALUMINUM/MAGNESIUM/SIMETH 30 ML CUP PO ONE (05:15)
[2017-03-14] MEDS: SODIUM CHLORIDE 0.9% FLUSH 10 ML FLUSH IV FLUSH SCH ×2 (07:27→20:43)
[2017-03-14] MEDS: SODIUM CHLOR 0.9% 1000 ML INJ 1,000 ML IV SCH (07:43)
[2017-03-14] MEDS ORDERED: hydrALAZINE HCL 20 MG/ML VIAL IV PUSH PRN (08:15)
[2017-03-14] MEDS: PREGABALIN 25 MG CAP PO SCH (08:52)
[2017-03-14] MEDS: RIVAROXABAN 20 MG TAB PO SCH (08:53)
[2017-03-14] MEDS: PRAMIPEXOLE DIHYDROCHLORIDE 0.25 MG TAB PO SCH ×3 (08:53→17:00)
[2017-03-14] MEDS: ASPIRIN EC 81 MG TABEC PO SCH (08:53)
[2017-03-14] MEDS: DOCUSATE SODIUM 50 MG/SENNA 8.6 MG TAB PO SCH ×2 (08:53→20:46)
[2017-03-14 08:57] LABS: BICARBONATE 27.2 MEQ/L (21.0-32.0); MAGNESIUM 2.6 MG/DL (1.5-2.5); POTASSIUM 3.4 MEQ/L (3.5-5.1)
[2017-03-14 09:19] LABS: CKMB 2.1 NG/ML (0.5-3.6)
[2017-03-14] MEDS: MINOXIDIL 10 MG TAB PO SCH (09:58)
[2017-03-14] MEDS: cloNIDine HCL 0.1 MG TAB PO PRN (09:58)
--- NOTE | 2017-03-14 11:32 | HHI.PR ---
Subjective Remarks Follow-up rhabdomyolysis and acute kidney injury. Developed squeezing retrosternal chest pain relieved with Maalox with no radiation of pain, dizziness, shortness of breath, diaphoresis and nausea. He feels he has a skipped beat. It is reproducible with chest pressure. BP also elevated patient has been off lisinopril, Aldactone, Lasix and Zaroxolyn because of acute kidney injury. Discussed with RN Objective Vitals Vital Signs Date Time Temp Pulse Resp B/P (MAP) Pulse Ox O2 Delivery O2 Flow Rate FiO2 03/14/17 08:00 98.5 70 18 200/94 (129) 95 03/14/17 01:00 168/74 (105) 03/14/17 00:00 97.9 75 20 172/76 (108) 97 03/13/17 20:00 Room Air 03/13/17 20:00 66 03/13/17 20:00 98.2 68 22 178/83 (114) 96 03/13/17 16:01 98.7 91 18 124/64 (84) 95 03/13/17 12:01 98.7 69 18 142/71 (94) 97 I/O 03/13/17 03/13/17 03/13/17 03/14/17 03/14/17 03/14/17 07:00 15:00 23:00 07:00 15:00 23:00 Intake Total 1987 ml 1369 ml 1085 ml Output Total 1400 ml 1200 ml 1400 ml Balance 587 ml 169 ml -315 ml Intake Oral 930 ml 420 ml 480 ml IV Total 1057 ml 949 ml 605 ml Output Urine Total 1400 ml 1200 ml 1400 ml # Bowel Movements 1 0 Result Diagram: 03/12/17 0725 03/14/17 0555 Objective Remarks GENERAL: Middle-aged white male in no acute distress, appears older than stated age. HEENT: PERRLA, EOMI. No scleral icterus or conjunctival pallor. No lid lag or facial droop. CARDIOVASCULAR: Regular rate and rhythm. No obvious murmurs to auscultation. No chest tenderness to palpation. RESPIRATORY: No obvious rhonchi or wheezing. Clear to auscultation. Breath sounds equal bilaterally. Tender chest wall GASTROINTESTINAL: Abdomen soft, slightly tender right upper quadrant, nondistended. BS normal. MUSCULOSKELETAL: Extremities without clubbing, cyanosis, or edema. No obvious deformities. NEUROLOGICAL: Awake, alert and oriented x4. Baseline slight weakness RUE and RLE Procedures none A/P Problem List: (1) Generalized weakness ICD Code: R53.1 - Weakness (2) ARNOLD (acute kidney injury) ICD Code: N17.9 - Acute kidney failure, unspecified (3) Rhabdomyolysis ICD Code: M62.82 - Rhabdomyolysis Status: Acute (4) Leukocytosis ICD Code: D72.829 - Elevated white blood cell count, unspecified (5) Hypotension ICD Code: I95.9 - Hypotension, unspecified (6) Parkinson disease ICD Code: G20 - Parkinson's disease Assessment and Plan 1. Generalized Weakness: Likely multifactorial-secondary to dehydration/ deconditioning/rhabdomyolysis. Ct PT for eval/tx. 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 ARNOLD/CKD 3: Creatinine 4.65, previously 1.78 on 03/04/17. Improving. Decrease IVF . UA negative. Monitor for overload hx CHF 3. Rhabdomyolysis: CPK 1691. Urine Drug Screen negative. Improving discontinue IV fluid Dc statin 4. Leukocytosis: WBC 12. No obvious source of infection. Afebrile. CXR w/ no acute findings, images reviewed by me. U/a negative. Will monitor. Repeat labs in am. Improved 5. Hypotension: BP 70's on arrival, responsive to IVF, repeat BP 99/57, HR 85. Give additional bolus, maintenance IVF, hold BP medications. Now hypertensive restart minoxidil and as needed urology Clonidine 6. Parkinson's Disease: at baseline, resume home medications. 7. Atypical chest pain. Patient not hypoxic. Tender chest wall and right upper quadrant. Patient Lexiscan negative. Patient on full dose Xarelto for history of DVT and PE. Troponin slightly elevated. EKG sinus rhythm with no ST elevation. Continue trend cardiac enzymes, aspirin, beta earl, sublingual nitroglycerin, Maalox, Percocet and IV morphine. Start PPI. Obtain LFTs, lipase and chest x-ray. DVT Prophylaxis: On Xarelto Discharge Planning Not ready for discharge Problem Qualifiers (1) Rhabdomyolysis: Qualified Codes: M62.82 - Rhabdomyolysis Jair Blanchard MD Mar 14, 2017 11:32
[2017-03-14] MEDS: NITROGLYCERIN 0.4 MG SL 25 TABS/BTL SL PRN ×3 (12:38→12:55)
[2017-03-14] MEDS ORDERED: ALUMINUM/MAGNESIUM/SIMETH 30 ML CUP PO PRN (12:45)
[2017-03-14] MEDS ORDERED: POTASSIUM CHLORIDE 10 MEQ CONTROLLED RELEASE TAB PO ONE (12:45)
[2017-03-14] MEDS ORDERED: NALOXONE HCL 0.4 MG/ML AMP IV PUSH PRN (13:15)
[2017-03-14] MEDS ORDERED: MORPHINE SULFATE 4 MG/ML INJ IV PUSH PRN (13:15)
[2017-03-14] MEDS: PANTOPRAZOLE SOD 40 MG DELAYED RELEASE TAB PO SCH (13:52)
--- NOTE | 2017-03-14 14:01 | RADRPT ---
EXAM DATE/TIME: 03/14/2017 14:12 [facility] COMPARISON: CHEST SINGLE AP, March 11, 2017, 18:37. INDICATIONS : Chest pain. MEDICAL HISTORY : Hypertension. Congestive heart failure. Atrial fibrilation SURGICAL HISTORY : None. ENCOUNTER: Initial ACUITY: 4 - 6 days PAIN SCORE: Non-responsive. LOCATION: chest FINDINGS: A single view of the chest demonstrates the lungs to be symmetrically aerated without evidence of mas s, infiltrate or effusion. The cardiomediastinal contours are unremarkable. Right shoulder prosthes is. CONCLUSION: The lungs are clear. Kelvin Rivas MD on March 14, 2017 at 13:58 Board Certified Radiologist. This report was verified electronically.
[2017-03-14 14:06] LABS: INDIRECT BILIRUBIN 0.5 MG/DL (0.0-0.8); TOTAL BILIRUBIN ADULT 0.7 MG/DL (0.2-1.0)
[2017-03-14] MEDS: LATANOPROST 0.005% OPHT SOLN 2.5 ML BTL EACH EYE SCH (20:42)
[2017-03-14] MEDS: TERAZOSIN HCL 5 MG CAP PO SCH (20:45)
--- NOTE | 2017-03-14 21:13 | EKG ---
Date Performed: 03/14/2017 Time Performed: 05:23:02 PTAGE: 66 years EKG: Sinus rhythm with PVC(s) Leftward axis Borderline ECG Compared to prior tracing no significant change DOCTOR: Chato Bermudez Interpretating Date/Time 03/14/2017 21:12:42
[2017-03-15] VITALS: BP 122/57; PULSE 82; RESP 20; TEMP 97.6; O2SAT 95
[2017-03-15 01:26] LABS: CKMB 1.3 NG/ML (0.5-3.6)
[2017-03-15 04:00] VITALS: BP 168/78; PULSE 83; RESP 20; TEMP 98.4; O2SAT 94
[2017-03-15] MEDS: CARBIDOPA/LEVODOPA 25 MG/100 MG TAB PO SCH ×2 (05:38→13:10)
[2017-03-15] MEDS: cloNIDine HCL 0.1 MG TAB PO PRN (05:57)
[2017-03-15 08:00] VITALS: BP 176/82; PULSE 75; RESP 16; TEMP 98.2; O2SAT 96
[2017-03-15] MEDS: RIVAROXABAN 20 MG TAB PO SCH (09:14)
[2017-03-15] MEDS: METOPROLOL SUCCINATE 50 MG EXTENDED RELEASE TAB PO SCH (09:14)
[2017-03-15] MEDS: DOCUSATE SODIUM 50 MG/SENNA 8.6 MG TAB PO SCH (09:14)
[2017-03-15] MEDS: ASPIRIN EC 81 MG TABEC PO SCH (09:14)
[2017-03-15] MEDS: SODIUM CHLORIDE 0.9% FLUSH 10 ML FLUSH IV FLUSH SCH (09:15)
[2017-03-15] MEDS: PANTOPRAZOLE SOD 40 MG DELAYED RELEASE TAB PO SCH (09:15)
[2017-03-15] MEDS: PREGABALIN 25 MG CAP PO SCH (09:15)
[2017-03-15] MEDS: PRAMIPEXOLE DIHYDROCHLORIDE 0.25 MG TAB PO SCH ×2 (09:15→11:52)
[2017-03-15] MEDS: MINOXIDIL 10 MG TAB PO SCH (09:18)
[2017-03-15] MEDS ORDERED: FUROSEMIDE 40 MG TAB PO SCH (10:00)
[2017-03-15 12:00] VITALS: BP 134/63; PULSE 76; RESP 16; TEMP 97.8; O2SAT 95
--- NOTE | 2017-03-15 13:54 | HHI.DS ---
Discharge Summary Admission Date Mar 11, 2017 at 21:11 Discharge Date: Mar 15, 2017 Admitting Diagnosis ARNOLD, rhabdomyolysis, hypotension (1) Generalized weakness ICD Code: R53.1 - Weakness Diagnosis: Principal (2) ARNOLD (acute kidney injury) ICD Code: N17.9 - Acute kidney failure, unspecified Diagnosis: Principal (3) Rhabdomyolysis ICD Code: M62.82 - Rhabdomyolysis Diagnosis: Principal Status: Acute (4) Leukocytosis ICD Code: D72.829 - Elevated white blood cell count, unspecified Diagnosis: Principal (5) Hypotension ICD Code: I95.9 - Hypotension, unspecified Diagnosis: Principal (6) Parkinson disease ICD Code: G20 - Parkinson's disease Diagnosis: Principal Procedures none Brief History - From Admission This is a 66-year-old male with a PMH of HTN, Parkinson's Disease, h/o DVT/PE on Xarelto and Chronic Back Pain who was sent to the ER from Rehab secondary to c/o generalized weakness and dizziness w/ near syncopal event. Denies fever, chills, nausea, vomiting or diarrhea. Recent admit 02/26-03/05/17 for TIA w/ Right-Sided Hemiplegia, resolved, s/p Neurology eval w/ negative imaging. D/c' d to [facility]. On arrival, BP 78/46, HR 67, O2 sat are percent on RA, Afebrile. S/p IVF w/ repeat BP 99/57, HR 85. WBC 12.9. Creatinine 4.65 , previously 1.78 on 03/04/17. CPK 1691. Troponin negative. INR 1.0. UA negative. Urine Drug Screen negative. CXR with no acute findings. CBC/BMP: 03/12/17 0725 03/14/17 0555 Significant Findings Laboratory Tests Test 03/13/17 07:05 03/14/17 05:55 03/14/17 11:25 03/15/17 00:19 Blood Urea Nitrogen 46 MG/DL (7-18) 25 MG/DL (7-18) Creatinine 1.62 MG/DL (0.60-1.30) Calcium Level 7.9 MG/DL (8.5-10.1) Magnesium Level 2.9 MG/DL (1.5-2.5) 2.6 MG/DL (1.5-2.5) Potassium Level 3.4 MEQ/L (3.5-5.1) 3.4 MEQ/L (3.5-5.1) Chloride Level 113 MEQ/L (98-107) 112 MEQ/L (98-107) Estimat Glomerular Filtration Rate 43 ML/MIN (>89) 66 ML/MIN (>89) Total Creatine Kinase 1443 U/L (39-308) 856 U/L (39-308) 829 U/L (39-308) 506 U/L (39-308) Creatine Kinase MB 3.9 NG/ML (0.5-3.6) Sodium Level 146 MEQ/L (136-145) Troponin I 0.06 NG/ML (0.02-0.05) 0.08 NG/ML (0.02-0.05) Aspartate Amino Transf (AST/SGOT) 44 U/L (15-37) Albumin 3.1 GM/DL (3.4-5.0) Imaging Last Impressions Chest X-Ray 03/14/17 0000 Signed Impressions: Service Date/Time: Tuesday, March 14, 2017 14:12 - CONCLUSION: The lungs are clear. Kelvin Rivas MD Renal Ultrasound 03/12/17 0000 Signed Impressions: Service Date/Time: Sunday, March 12, 2017 22:35 - CONCLUSION: 1. Kidneys appear unremarkable, with the exception of a possible lower pole left renal calculus measuring 5 mm. 2. Prostatic hypertrophy which partially protrudes into the base of the bladder. Issac Chau MD PE at Discharge GENERAL: Middle-aged white male in no acute distress, appears older than stated age. HEENT: PERRLA, EOMI. No scleral icterus or conjunctival pallor. No lid lag or facial droop. CARDIOVASCULAR: Regular rate and rhythm. No obvious murmurs to auscultation. No chest tenderness to palpation. RESPIRATORY: No obvious rhonchi or wheezing. Clear to auscultation. Breath sounds equal bilaterally. Tender chest wall GASTROINTESTINAL: Abdomen soft, slightly tender right upper quadrant, nondistended. BS normal. MUSCULOSKELETAL: Extremities without clubbing, cyanosis, or edema. No obvious deformities. NEUROLOGICAL: Awake, alert and oriented x4. Baseline slight weakness RUE and RLE Hospital Course 1. Generalized Weakness: Likely multifactorial-secondary to dehydration/ deconditioning/rhabdomyolysis. Ct PT for eval/tx. 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 ARNOLD/CKD 3: Creatinine 4.65, previously 1.78 on 03/04/17. Resolving. Decrease IVF . UA negative. Monitor for overload hx CHF 3. Rhabdomyolysis: CPK 1691. Urine Drug Screen negative. Improving discontinue IV fluid Dc statin 4. Leukocytosis: WBC 12. No obvious source of infection. Afebrile. CXR w/ no acute findings, images reviewed by me. U/a negative. Will monitor. Repeat labs in am. Improved 5. Hypotension: BP 70's on arrival, responsive to IVF, repeat BP 99/57, HR 85. Give additional bolus, maintenance IVF, hold BP medications. Now hypertensive restart minoxidil and as needed Clonidine. Lasix also restarted 6. Parkinson's Disease: at baseline, resume home medications. 7. Atypical chest pain. Patient not hypoxic. Patient on full dose Xarelto for history of DVT and PE. Troponin slightly elevated but recent Lexiscan negative for ischemia. EKG sinus rhythm with no ST elevation. Likely chest wall inflammation versus GI. Continue PPI, aspirin, beta earl, sublingual nitroglycerin, Maalox, Percocet and IV morphine. DVT Prophylaxis: On Xarelto Pt Condition on Discharge: Stable Discharge Disposition: Discharge to SNF Discharge Time: > 30 minutes Discharge Instructions DIET: Follow Instructions for: Heart Healthy Diet Activities you can perform: Regular-No Restrictions Activities to Avoid: Driving Follow up Referrals: PCP Follow-up - 1 Week New Orders: BASIC METABOLIC PROF - 1 Week New Medications: Pregabalin (Lyrica) 25 Mg Cap 50 MG PO DAILY for Pain Management, #30 CAP Changed Medications: Furosemide (Furosemide) 40 Mg Tab 40 MG PO QD for Prevent Heart Failure, #30 TAB 0 Refills (Changed from: BID; 60) Continued Medications: Aspirin DR (Adult Aspirin EC Low Strength) 81 Mg Tabec 81 MG PO DAILY, #30 TAB Brimonidine-Timolol Opth Drops (Combigan Opth Drops) 0.2-0.5% Soln 1 DROP EACH EYE Q12HR for Glaucoma, #1 BOTTLE 0 Refills Carbidopa-Levodopa (Sinemet) 25-100 Mg Tab 1 TAB PO Q8HR for Parkinson Disease Mgmt, #90 TAB 0 Refills Cholecalciferol (Vitamin D3) 1,000 Unit Tab 1000 UNITS PO DAILY for Nutritional Supplement, #1 BOTTLE 0 Refills Latanoprost Opth Drops (Latanoprost Opth Drops) 0.005% Drops 1 DROP EACH EYE HS for Glaucoma, #2.5 ML 0 Refills Refrigerate until opened. Melatonin (Melatonin) 5 Mg Tab 3 MG PO HS for Provide Good Sleep, TAB 0 Refills Metoprolol Succinate ER 24 HR (Metoprolol Succinate ER 24 HR) 50 Mg Tab 50 MG PO DAILY, #30 TAB 0 Refills Minoxidil (Minoxidil) 10 Mg Tab 20 MG PO DAILY for Blood Pressure Management, #30 TAB 0 Refills Oxycodone (Oxycodone) 10 Mg Tab 10 MG PO Q4H PRN for PAIN, #15 TAB 0 Refills Pentoxifylline ER (Pentoxifylline ER) 400 Mg Tab 400 MG PO TID for Intermittent claudication, #90 TAB 0 Refills Pramipexole (Pramipexole) 0.25 Mg Tab 0.25 MG PO TID for Parkinson Disease Mgmt, #90 TAB 0 Refills Rivaroxaban (Xarelto) 20 Mg Tab 20 MG PO DAILY for Blood Clot Prevention, #30 TAB 0 Refills Sennosides (Sennosides) 8.6 Mg Tab 8.6 MG PO HS for Constipation, TAB 0 Refills Terazosin (Terazosin) 5 Mg Cap 5 MG PO HS, #30 CAP 0 Refills Discontinued Medications: Atorvastatin (Lipitor) 10 Mg Tab 10 MG PO DAILY, #30 TAB Ibuprofen (Ibuprofen) 600 Mg Tab 600 MG PO Q6H PRN for Pain/Inflammation, #40 TAB 0 Refills Lisinopril (Lisinopril) 2.5 Mg Tab 2.5 MG PO DAILY, #30 TAB 0 Refills Metolazone (Metolazone) 5 Mg Tab 5 MG PO DAILY, #30 TAB 0 Refills Potassium Chloride ER (Potassium Chloride ER) 20 Meq Tab 20 MEQ PO DAILY for Electrolyte Replacement, #30 TAB 0 Refills Pregabalin (Lyrica) 100 Mg Cap 100 MG PO BID, #60 CAP 0 Refills Spironolactone (Aldactone) 50 Mg Tab 50 MG PO DAILY, #30 TAB 0 Refills Tizanidine (Tizanidine) 2 Mg Cap 1 MG PO TID for Muscle Spasm, #30 CAP 0 Refills Jair Blanchard MD Mar 15, 2017 13:54
[2017-03-15 15:45] VITALS: PULSE 67
--- NOTE | 2017-03-15 18:05 | EKG ---
Date Performed: 03/14/2017 Time Performed: 12:05:44 PTAGE: 66 years EKG: Sinus rhythm WITH OCCASIONAL VENTRICULAR PREMATURE COMPLEXES . MARKED LEFT AXIS DEVIATION Compared to prior elijah ng no significant change ABNORMAL ECG PREVIOUS TRACING : 03/14/2017 05.23 DOCTOR: Keri Dey Interpretating Date/Time 03/15/2017 18:03:34
--- NOTE | 2017-03-15 18:11 | EKG ---
Date Performed: 03/14/2017 Time Performed: 13:10:28 PTAGE: 66 years EKG: Sinus rhythm , but there appears to be limb lead reversal so this tracing is not directly compariable to the prior tracing, and the serial changes may represent the technical inadequacies of the present ekg. Severe right axis deviation Lateral infarct - age undetermined Right ventricular hypertrophy Clinical corre lation is recommended Abnormal ECG PREVIOUS TRACING : 03/14/2017 12.05 DOCTOR: Keri Dey Interpretating Date/Time 03/15/2017 18:10:14
--- NOTE | 2017-03-15 18:14 | EKG ---
Date Performed: 03/14/2017 Time Performed: 13:21:34 PTAGE: 66 years EKG: Sinus rhythm with PAC's Lead(s) unsuitable for analysis: V2 Left anterior fascicular block Since the prior tracin g the axis deviation and lateral infarct are no longer evident confirming that the previous tracing h ad limb lead reversal. This tracing is unchanged since 03/14/2017 Abnormal ECG PREVIOUS TRACING : 03/14/2017 13.10 DOCTOR: Keri Dey Interpretating Date/Time 03/15/2017 18:14:15
--- NOTE | 2017-03-15 18:15 | EKG ---
Date Performed: 03/14/2017 Time Performed: 16:47:37 PTAGE: 66 years EKG: Sinus rhythm LEFT ANTERIOR FASCICULAR BLOCK Compared to prior tracing no significant change ABNORMAL ECG PREVIOUS TRACING : 03/14/2017 12.05 DOCTOR: Keri Dey Interpretating Date/Time 03/15/2017 18:14:53
== END 2017-03-15 14:33 | DRG 683 ==
LOC: NEPE 17:55 → NEDA 21:11 → N04B 23:15
PROVIDERS: ADMIT Internal Medicine; ATTEND Internal Medicine
DX: N17.9 Acute kidney failure, unspecified (principal); M62.82 Rhabdomyolysis; E86.0 Dehydration; I95.9 Hypotension, unspecified; G20 Parkinson's disease; I13.0 Hypertensive heart and chronic kidney disease with heart failure and stage 1 through stage 4 chronic kidney disease, or unspecified chronic kidney disease; I50.9 Heart failure, unspecified; R55 Syncope and collapse; N18.3 Chronic kidney disease, stage 3 (moderate); Z86.711 Personal history of pulmonary embolism; Z86.718 Personal history of other venous thrombosis and embolism; Z96.611 Presence of right artificial shoulder joint; N40.0 Benign prostatic hyperplasia without lower urinary tract symptoms; K21.9 Gastro-esophageal reflux disease without esophagitis; F32.9 Major depressive disorder, single episode, unspecified; M19.90 Unspecified osteoarthritis, unspecified site; D72.829 Elevated white blood cell count, unspecified; Z86.73 Personal history of transient ischemic attack (TIA), and cerebral infarction without residual deficits; R07.2 Precordial pain; R74.8 Abnormal levels of other serum enzymes
CPT/HCPCS: 71010; 76775; 80048; 80053; 80076; 80307; 81001; 82550; 82552; 83605; 83690; 83735; 84484; 85025; 85610; 85730; 87040; 93005; 96360; 96361; J0360; J2270; J2405; J7030

== ENCOUNTER 2017-07-30 17:02 | Emergency (ER) | payer MEDICARE, OTHER ==
[~2017-07-30] VITALS: Ht 175.3 cm; Wt 93.6 kg
[~2017-07-30 17:02] MED LIST changes: -ALDA50TA2 PO; -ASPI-99 PO; +ASPI1TAB56 PO; -IBUP-232 PO; -LIPI10TA PO; -LYRI100C PO; +MELA5 PO; +METO1TAB9 PO; -METO50TA11 PO; -METO5TAB3 PO; +PREG25 PO; +SENN8.6T81 PO; -TIZA2CAP3 PO
[2017-07-30 17:19] VITALS: BP 219/97; PULSE 65; RESP 20; TEMP 98.8; O2SAT 99
--- NOTE | 2017-07-30 18:17 | RADRPT ---
EXAM DATE/TIME: 07/30/2017 18:01 [facility] COMPARISON: CT BRAIN W/O CONTRAST, February 26, 2017, 13:26. INDICATIONS : Trauma, fall. Hit head. RADIATION DOSE: 66.34 CTDIvol (mGy) MEDICAL HISTORY : Parkinson's. Hypertension. SURGICAL HISTORY : Right shoulder replacement. ENCOUNTER: Initial ACUITY: 1 day PAIN SCALE: 3/10 LOCATION: cranial TECHNIQUE: Multiple contiguous axial images were obtained of the head. Using automated exposure control and adj ustment of the mA and/or kV according to patient size, radiation dose was kept as low as reasonably a chievable to obtain optimal diagnostic quality images. DICOM format image data is available electro nically for review and comparison. FINDINGS: CEREBRUM: The ventricles are normal for age. No evidence of midline shift, mass lesion, hemorrhage or acute in farction. No extra-axial fluid collections are seen. POSTERIOR FOSSA: The cerebellum and brainstem are intact. The 4th ventricle is midline. The cerebellopontine angle i s unremarkable. EXTRACRANIAL: The visualized portion of the orbits is intact. SKULL: The calvaria is intact. No evidence of skull fracture. CONCLUSION: No bleed or other acute intracranial abnormality. Rashad Staton MD on July 30, 2017 at 18:15 Board Certified Radiologist. This report was verified electronically.
--- NOTE | 2017-07-30 18:20 | RADRPT ---
EXAM DATE/TIME: 07/30/2017 18:01 [facility] COMPARISON: CT CERVICAL SPINE W/O CONTRAST, September 12, 2012, 12:42. INDICATIONS : Trauma, fall. Neck pain. RADIATION DOSE: 31.91 CTDIvol (mGy) MEDICAL HISTORY : Hypertension. Parkinsons. SURGICAL HISTORY : Right shoulder replacement. ENCOUNTER: Initial ACUITY: 1 day PAIN SCALE: 7/10 LOCATION: neck TECHNIQUE: Volumetric scanning of the cervical spine was performed. Multiplanar reconstructions in the sagittal, coronal and oblique axial planes were performed. Using automated exposure control and adjustment o f the mA and/or kV according to patient size, radiation dose was kept as low as reasonably achievable to obtain optimal diagnostic quality images. DICOM format image data is available electronically f or review and comparison. FINDINGS: VERTEBRAE: Normal vertebral body height. ALIGNMENT: No evidence of subluxation. C2-C3: The bony spinal canal is normal in size. No evidence of disc bulge or herniation. The neural forami na are bilaterally patent. C3-C4: The bony spinal canal is normal in size. No evidence of disc bulge or herniation. The neural forami na are bilaterally patent. C4-C5: The bony spinal canal is normal in size. No evidence of disc bulge or herniation. The neural forami na are bilaterally patent. C5-C6: The bony spinal canal is normal in size. No evidence of disc bulge or herniation. The neural forami na are bilaterally patent. C6-C7: Mild to moderate disc space narrowing with a small, broad posterior disc osteophyte complex and mild bilateral uncovertebral and facet osteoarthritis. There is mild bilateral foraminal stenosis. No sign ificant spinal stenosis. C7-T1: The bony spinal canal is normal in size. No evidence of disc bulge or herniation. The neural forami na are bilaterally patent. CONCLUSION: Intact cervical spine. Degenerative changes at C6-C7. Rashad Staton MD on July 30, 2017 at 18:17 Board Certified Radiologist. This report was verified electronically.
--- NOTE | 2017-07-30 18:23 | RADRPT ---
EXAM DATE/TIME: 07/30/2017 18:01 [facility] COMPARISON: No previous studies available for comparison. INDICATIONS : Trauma, fall. Right orbital contusion. RADIATION DOSE: 26.35 CTDIvol (mGy) MEDICAL HISTORY : Parkinson's. Hypertension. SURGICAL HISTORY : Right shoulder replacement. ENCOUNTER: Initial ACUITY: 1 day PAIN SCORE: 7/10 LOCATION: Right facial TECHNIQUE: Volumetric scanning of the facial bones was performed. Using automated exposure control and adjustme nt of the mA and/or kV according to patient size, radiation dose was kept as low as reasonably achiev able to obtain optimal diagnostic quality images. DICOM format image data is available electronicall y for review and comparison. FINDINGS: ORBITS: The orbital and infraorbital osseous structures are intact. The retroconal structures have a normal configuration. No radiopaque foreign bodies are seen. NASAL BONE: The nasal bone and maxillary spine are intact ZYGOMATIC ARCHES: Symmetric without evidence of fracture. SINUSES: The maxillary, ethmoid and frontal sinuses are intact. No air-fluid levels seen. NASAL CAVITY: The nasal septum is intact and midline. The lacrimal ducts are intact. SOFT TISSUES: Preseptal soft tissue hematoma of the right orbit. Globes are grossly intact. Postseptal soft tissues are normal. INTRACRANIAL: No intracranial air seen. CRIBIFORM PLATE: Grossly intact. CONCLUSION: Preseptal periorbital soft tissue hematoma on the right. No fracture. Rashad Staton MD on July 30, 2017 at 18:20 Board Certified Radiologist. This report was verified electronically.
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
== END 2017-07-30 21:38 ==
LOC: NEPD 17:02
DX: S01.111A Laceration without foreign body of right eyelid and periocular area, initial encounter (principal); S01.411A Laceration without foreign body of right cheek and temporomandibular area, initial encounter; W01.0XXA Fall on same level from slipping, tripping and stumbling without subsequent striking against object, initial encounter; Y92.129 Unspecified place in nursing home as the place of occurrence of the external cause; F32.9 Major depressive disorder, single episode, unspecified; I11.0 Hypertensive heart disease with heart failure; I50.9 Heart failure, unspecified; G20 Parkinson's disease; Z86.711 Personal history of pulmonary embolism
CPT/HCPCS: 12013; 70450; 70486; 72125